=== PATIENT | male | born 1960 | race Caucasian/White ===

== ENCOUNTER 2018-01-02 12:24 | Emergency (ER) | payer SELFPAY ==
[2018-01-02 13:59] VITALS: BP 115/82
--- NOTE | 2018-01-02 14:26 | UC ---
Skin Complaint HPI - HPI Summary HPI Summary: Pt presents with left cheek swelling. Says this started 3 days ago as an infected hair. He has been squeezing it trying to get material out (clear and yellow colored drainage), but has become increasingly large and painful. Denies fever, chills, SOB, or recent illness. - History of Current Complaint Chief Complaint: UCSkin Stated Complaint: LEFT CHECK SWELLING Hx Obtained From: Patient Onset/Duration: Gradual Onset Skin Exposure Onset/Duration: Days Ago Timing: Constant Onset Severity: Moderate Current Severity: Severe Pain Intensity: 8 Pain Scale Used: 0-10 Numeric Location: Face - Allergy/Home Medications Allergies/Adverse Reactions: Allergies Allergy/AdvReac Type Severity Reaction Status Date / Time prochlorperazine Allergy See Comment Verified 01/02/18 13:53 [From Compazine] Home Medications: Home Medications Ibuprofen TAB* [Motrin TAB* 600 MG] 600 mg PO Q6H PRN 01/02/18 [History Confirmed 01/02/18] Review of Systems Constitutional: Negative Skin: Other - Abscess left cheek ENT: Negative Respiratory: Negative Cardiovascular: Negative Gastrointestinal: Negative Musculoskeletal: Negative Neurological: Negative Psychological: Negative All Other Systems Reviewed And Are Negative: Yes PMH/Surg Hx/FS Hx/Imm Hx Previously Healthy: Yes - Surgical History Surgical History: Yes Surgery Procedure, Year, and Place: Umbilical and inguinal hernia repair 2016. Gastric stapling 1996 - Family History Known Family History: Positive: Unknown - Social History Lives: Alone Alcohol Use: None Substance Use Type: None Smoking Status (MU): Never Smoked Tobacco Physical Exam Triage Information Reviewed: Yes Appearance: Well-Appearing, No Pain Distress, Well-Nourished Vital Signs: Initial Vital Signs Temp 98.8 F 01/02/18 13:55 Pulse 70 01/02/18 13:55 Resp 18 01/02/18 13:55 BP 115/82 01/02/18 13:55 Pulse Ox 98 01/02/18 13:55 Vital Signs Reviewed: Yes ENT: Positive: Pharynx normal, Uvula midline. Negative: Pharyngeal erythema, Dental tenderness Dental: Negative: Percussion Tenderness @, Gross Decay/Caries @, Dental Fracture @, Abscess @, Cellulitis @, Cervical Lymphadenopathy, Bleeding Neck: Positive: Supple, Nontender, No Lymphadenopathy Respiratory: Positive: Lungs clear, Normal breath sounds, No respiratory distress, No accessory muscle use Cardiovascular: Positive: RRR, No Murmur, Pulses Normal Neurological: Positive: Alert Psychological: Positive: Age Appropriate Behavior Skin: Positive: Other - 2.5cm in diameter abscess to left lower cheek along mandible. Oozing clear/yellow material on exam. TTP. Course/Dx - Course Course Of Treatment: Left lower cheek abscess. A time out was performed, witnessed, and signed. 3mL of 2% lidocaine without epi was administered and good anesthetization was achieved. An Iodine swab was used to cleanse the area. A 3mm linear incision was made on the central most part of the abscess. Copious purulent material was able to be expressed. Area was dressed with mepilex. Pt tolerated procedure well. - Differential Diagnoses - Skin Complaint Differential Diagnoses: Abscess - Diagnoses Provider Diagnoses: Left lower cheek abscess Procedures - Incision and Drainage Site: Left lower cheek Anesthesia: Local Instrument(s): Scalpel - #11 Discharge - Discharge Plan Condition: Stable Disposition: HOME Prescriptions: Cephalexin CAP* [Keflex CAP*] 500 mg PO BID #14 cap Patient Education Materials: Abscess (ED) Referrals: No Primary Care Phys,NOPCP [Primary Care Provider] - Additional Instructions: If you develop a fever, shortness of breath, chest pain, new or worsening symptoms - please call your PCP or go to the ED. 1) Keep the bandage clean, dry, and intact for the next 24 hours. After that you may remove the bandage and leave the area to the air. 2) Please take the antibiotic as prescribed and follow up if you develop any fever, chills, or worsening symptoms.
[2018-01-02] MEDS ORDERED: Lidocaine 2% PF * 5 ML VIAL INJ ONE (14:36)
== END 2018-01-02 15:06 | disposition home or self-care (01) ==
LOC: UCEAST 12:24
DX: L02.01 Cutaneous abscess of face (principal); Z98.84 Bariatric surgery status; Z88.8 Allergy status to other drugs, medicaments and biological substances
CPT/HCPCS: 10060; 96372; 99202; G0463

== ENCOUNTER 2018-10-30 10:28 | Emergency (ER) | payer SELFPAY ==
[2018-10-30] MEDS ORDERED: NS 0.9% 1000 ML* 1,000 ML IV ONE ×3 (12:14→15:25)
[2018-10-30] MEDS ORDERED: Ondansetron INJ* 2 MG/ML VIAL IV ONE (12:26)
--- NOTE | 2018-10-30 12:28 | ED ---
GI/ HPI - HPI Summary HPI Summary: This pt is a 57 y/o male presenting to [facility] c/o nausea and vomiting x3 days. Pt reports he ate cookies prior to onset of nausea and vomiting. Additionally notes diarrhea and fever that have now resolved. He states today he had 3 to 4 episodes of emesis. He reports intermittent abdominal pain, described as cramping, that has persisted until today. Denies fever, chills, chest pain, SOB. Hx gastric bypass 22 years ago. Denies any other PMHx. - History of Current Complaint Chief Complaint: EDAbdPain Time Seen by Provider: 10/30/18 12:12 Stated Complaint: ABD PAIN/DIZZINESS/VOMITING Hx Obtained From: Patient Onset/Duration: Started Days Ago - 3, Still Present Timing: Lasting Days - 3 Current Severity: Moderate Pain Intensity: 7 Location of Pain: Diffuse Pain Characteristics: Cramping Associated Signs and Symptoms: Positive: Nausea, Vomiting, Diarrhea, Abdominal Pain. Negative: Fever, Chills, Chest Pain Aggravating Factor(s): Nothing Alleviating Factor(s): Nothing - Allergy/Home Medications Allergies/Adverse Reactions: Allergies Allergy/AdvReac Type Severity Reaction Status Date / Time prochlorperazine Allergy See Comment Verified 10/30/18 12:44 [From Compazine] PMH/Surg Hx/FS Hx/Imm Hx Endocrine/Hematology History: Denies: Hx Diabetes Cardiovascular History: Denies: Hx Hypertension - Surgical History Surgery Procedure, Year, and Place: Umbilical and inguinal hernia repair 2016. Gastric stapling 1996 Infectious Disease History: No Infectious Disease History: Denies: Traveled Outside the [place] in Last 30 Days - Family History Family History: father with lung CA - Social History Alcohol Use: None Substance Use Type: Reports: None Smoking Status (MU): Never Smoked Tobacco Review of Systems Negative: Fever, Chills Negative: Chest Pain Negative: Shortness Of Breath Positive: Abdominal Pain, Vomiting, Diarrhea, Nausea Skin: Negative Neurological: Negative All Other Systems Reviewed And Are Negative: Yes Physical Exam - Summary Physical Exam Summary: VITAL SIGNS: Reviewed. GENERAL: Patient is a well-developed and nourished male who is lying comfortable in the stretcher. Patient is not in any acute respiratory distress. HEAD AND FACE: Normocephalic and atraumatic. EYES: PERRLA, EOMI x 2, No injected conjunctiva. EARS: Hearing grossly intact. Ear canals and tympanic membranes are WNL. MOUTH: Oropharynx within normal limits. Oral mucosa is dry. NECK: Supple, trachea is midline, no adenopathy, no JVD. CHEST: Symmetric, no tenderness at palpation LUNGS: Clear to auscultation bilaterally. No wheezing or crackles. CVS: RRR, S1 and S2 present, no murmurs or gallops appreciated. ABDOMEN: Soft, non-tender. Abdomen is distended. Positive bowel sounds. No rebound no guarding, and no masses palpated. No abdominal bruit or pulsations. EXTREMITIES: FROM in all major joints, no edema, no cyanosis or clubbing. NEURO: Alert and oriented x 3. No acute neurological deficits. Speech is normal. SKIN: Dry and warm Triage Information Reviewed: Yes Vital Signs On Initial Exam: Initial Vitals Temp Pulse Resp BP Pulse Ox 98.2 F 109 18 137/92 97 10/30/18 10:39 10/30/18 10:39 10/30/18 10:39 10/30/18 10:39 10/30/18 10:39 Vital Signs Reviewed: Yes Diagnostics - Vital Signs Vital Signs Temp Pulse Resp BP Pulse Ox 10/30/18 12:04 93 120/89 96 10/30/18 12:03 99 96 10/30/18 10:39 98.2 F 109 18 137/92 97 - Laboratory Result Diagrams: 10/30/18 12:35 10/30/18 12:35 Lab Statement: Any lab studies that have been ordered have been reviewed, and results considered in the medical decision making process. - Radiology Abdomen XR Radiology Interpretation Completed By: Radiologist Summary of Radiographic Findings: IMPRESSION: No free air or obstruction is identified. Dr. Escobar has reviewed this report. - EKG 12:18 Cardiac Rate: NL - at 88 bpm EKG Rhythm: Sinus Rhythm Summary of EKG Findings: No ST elevations. Re-Evaluation - Re-Evaluation First Eval Re-Evaluation Time: 15:26 Change: Improved Comment: Pt reports feeling better. He drank about 16 ounces of fluids without any nausea and vomiting. Pt denies any abd pain. He will be discharged home with follow up from PCP. GIGU Course/Dx - Course Assessment/Plan: This pt is a 57 y/o male presenting to [facility] c/o nausea and vomiting x3 days. Pt reports he ate cookies prior to onset of nausea and vomiting. Additionally notes diarrhea and fever that have now resolved. He states today he had 3 to 4 episodes of emesis. He reports intermittent abdominal pain, described as cramping, that has persisted until today. Denies fever, chills, chest pain, SOB. Hx gastric bypass 22 years ago. Denies any other PMHx. Blood work without any significant abnormality except for increase in creatinine of 1.3. Glucose is 107. CRP is 54.09 and CPK is 228. In the ED course the patient was given IV fluids, he was given Zofran for the nausea and vomiting. X-ray of the abdomen impression: no free air or obstruction is identified. Patient received approximately 2 L of IV fluids and the symptoms have subsided. The patient reports that he doesnt have any more nausea or abdominal cramping. The patient was given a by mouth challenge and he was able to drink approximately 16 ounces of fluids. He reports no nausea and vomiting. He reports no diarrhea or abdominal pain. Therefore at this point, I discussed my physical exam and findings, test results with the patient and the need to follow-up with primary care physician. I also instructed the patient that I did not perform a abdominal pelvic CT at this time since all his symptoms have resolved. The patient understands and agrees. He was given instructions to return to the emergency room if he develops any other symptom. Also if he develops any abdominal pain onset of nausea and vomiting. The patient is hemodynamically stable, alert oriented 3. - Diagnoses Provider Diagnoses: Nausea and vomiting, Diarrhea Discharge - Sign-Out/Discharge Documenting (check all that apply): Patient Departure - Discharge home - Discharge Plan Condition: Stable Disposition: HOME Prescriptions: Ondansetron ODT TAB* [Zofran 4 MG Odt TAB*] 4 mg PO Q8H PRN #10 tab.odt PRN Reason: Vomiting Patient Education Materials: Acute Nausea and Vomiting (ED), Acute Diarrhea (ED ) Referrals: [facility] [Outside] [facility] [Outside] Additional Instructions: FOLLOW UP WITH YOUR PRIMARY CARE PROVIDER WITHIN ONE WEEK FOR HIGH BLOOD PRESSURE NOTED TODAY. If you don't have a primary care provider, please follow up with [facility] or establish a primary through [facility] Physician Referral. RETURN TO THE ED FOR ANY NEW OR WORSENING SYMPTOMS. - Billing Disposition and Condition Condition: STABLE Disposition: Home - Attestation Statements Document Initiated by Scribkarina: Yes Documenting Scribe: Katie Henry Provider For Whom Jaz is Documenting (Include Credential): Kolby Escobar MD Scribe Attestation: Katie Medrano, scribed for Kolby Escobar MD on 10/30/18 at 1837. Scribe Documentation Reviewed: Yes Provider Attestation: The documentation as recorded by the Katie to accurately reflects the service I personally performed and the decisions made by Kolby sosa MD Status of Scribe Document: Viewed
[2018-10-30 12:52] LABS: Hematocrit 42 % (42-52); Hemoglobin 13.7 g/dl (14.0-18.0); Mean Corpuscular HGB Conc 33 g/dl (31-36); Mean Corpuscular Hemoglobin 24 pg (27-31); Mean Corpuscular Volume 72 fL (80-94); Mean Platelet Volume 7.4 fL (7.4-10.4); Platelet Count 329 10^3/ul (150-450); Red Blood Count 5.78 10^6/ul (4.00-5.40); Red Cell Distribution Width 17 % (10.5-15); White Blood Count 8.2 10^3/ul (3.5-10.8)
[2018-10-30 13:07] LABS: EGFR Non-African American 56.7 (>60)
[2018-10-30 13:14] LABS: ABS Basophils 0 10^3/ul (0-0.2); ABS Eosinophils 0.1 10^3/ul (0-0.6); ABS Lymphocytes 1.6 10^3/ul (1.0-4.8); ABS Monocytes 0.8 10^3/ul (0-0.8); ABS Neutrophils 5.6 10^3/ul (1.5-7.7)
[2018-10-30 13:16] LABS: Monocytes % 5 %
[2018-10-30 13:17] LABS: ABS Neutrophils 5.6 10^3/ul (1.5-7.7)
[2018-10-30 14:28] LABS: Urine Appearance Turbid; Urine Blood Negative (Negative); Urine Color Yellow; Urine Ketones Trace (Negative); Urine Protein 1+(30 mg/dL) (Negative); Urine Red Blood Cell Absent (Absent); Urine Specific Gravity 1.029 (1.010-1.030); Urine Urobilinogen Negative (Negative); Urine White Blood Cell Trace(0-5/hpf) (Absent)
[2018-10-30 15:38] VITALS: BP 124/79
== END 2018-10-30 15:38 | disposition home or self-care (01) ==
LOC: ED 10:28
DX: R11.2 Nausea with vomiting, unspecified (principal); R19.7 Diarrhea, unspecified
CPT/HCPCS: 36415; 74019; 80053; 81003; 81015; 82150; 82550; 83605; 83690; 83735; 83880; 85025; 85060; 86140; 87086; 93005; 96361; 96374; 99283; J2405

== ENCOUNTER → 2019-01-08 17:53 | Emergency (ER) | payer SELFPAY ==
[~2019-01-08 17:53] MED LIST: Metoclopramide IV* 5 MG/ML 2 ML VIAL IV SLOW PU ONE; NS 0.9% 1000 ML** 1,000 ML IV ONE; Ondansetron INJ* 2 MG/ML VIAL IV ONE
--- NOTE | 2019-01-08 18:11 | ED ---
GI/ HPI - HPI Summary HPI Summary: 52-year-old male presents with vomiting for the past couple days. He states he feels very dehydrated. He states this happened in the past. He denies any bowel pain. No diarrhea. he denies any shortness of breath or chest pain. No fevers. No cough. He states that he just feels weak. He states that he is not able to keep anything down. He has history of gastric bypass. No one else is sick. he has had a normal bowel movement today. no history of obstruction. - History of Current Complaint Chief Complaint: EDNauseaVomitDiarrh Time Seen by Provider: 01/08/19 18:01 Stated Complaint: VOMITING/DIZZINESS/WEAKNESS Pain Intensity: 0 - Allergy/Home Medications Allergies/Adverse Reactions: Allergies Allergy/AdvReac Type Severity Reaction Status Date / Time prochlorperazine Allergy See Comment Verified 01/08/19 17:57 [From Compazine] Home Medications: Home Medications NK [No Home Medications Reported] 01/08/19 [History Confirmed 01/08/19] PMH/Surg Hx/FS Hx/Imm Hx Endocrine/Hematology History: Denies: Hx Diabetes Cardiovascular History: Denies: Hx Hypertension - Surgical History Surgery Procedure, Year, and Place: Umbilical and inguinal hernia repair 2016. Gastric stapling 1996 Infectious Disease History: No Infectious Disease History: Denies: Traveled Outside the [place] in Last 30 Days - Family History Known Family History: Positive: Unknown Family History: father with lung CA - Social History Alcohol Use: None Substance Use Type: Reports: None Smoking Status (MU): Never Smoked Tobacco Review of Systems Negative: Fever Negative: Chest Pain Negative: Shortness Of Breath Positive: Vomiting, Nausea. Negative: Abdominal Pain, Diarrhea All Other Systems Reviewed And Are Negative: Yes Physical Exam Triage Information Reviewed: Yes Vital Signs On Initial Exam: Initial Vitals Temp Pulse Resp BP Pulse Ox 98.6 F 107 18 135/114 97 01/08/19 17:54 01/08/19 17:54 01/08/19 17:54 01/08/19 17:54 01/08/19 17:54 Vital Signs Reviewed: Yes Appearance: Positive: Well-Appearing Skin: Positive: Warm, Dry Head/Face: Positive: Normal Head/Face Inspection Eyes: Positive: Normal, Conjunctiva Clear ENT: Positive: Pharynx normal Respiratory/Lung Sounds: Positive: Clear to Auscultation, Breath Sounds Present Cardiovascular: Positive: Normal, RRR Abdomen Description: Positive: Nontender, Soft Bowel Sounds: Positive: Present Musculoskeletal: Positive: Normal Neurological: Positive: Normal Psychiatric: Positive: Normal Diagnostics - Vital Signs Vital Signs Temp Pulse Resp BP Pulse Ox 01/08/19 17:54 98.6 F 107 18 135/114 97 - Laboratory Result Diagrams: 01/08/19 18:15 01/08/19 18:15 Lab Statement: Any lab studies that have been ordered have been reviewed, and results considered in the medical decision making process. - Radiology abd Radiology Interpretation Completed By: ED Physician Summary of Radiographic Findings: no obstruction - EKG No standard instances Cardiac Rate: NL EKG Rhythm: Sinus Rhythm Summary of EKG Findings: sinus rhythm Re-Evaluation - Re-Evaluation First Eval Re-Evaluation Time: 18:57 Change: Improved Comment: still a little nausous Second Eval Re-Evaluation Time: 20:29 Change: Improved Comment: no longer nausous, will try ice chips Third Eval Re-Evaluation Time: 21:20 Change: Improved Comment: tolerated ice chips, wants to go home GIGU Course/Dx - Course Course Of Treatment: 52-year-old male presents with vomiting for the past couple days. He states he feels very dehydrated. He states this happened in the past. He denies any bowel pain. No diarrhea. he denies any shortness of breath or chest pain. No fevers. No cough. He states that he just feels weak. He states that he is not able to keep anything down. He has history of gastric bypass. No one else is sick. he has had a normal bowel movement today. no history of obstruction. on exam lungs CTA. abd soft nontender. xray abd read by me and dr enriquez as no obstruction. gave zofran and reglan and fluids and feeling better. able to tolerate ice chips. discussed if develops abd pain or vomiting persists to return for CT. patient has zofran at home. patient understand and agrees with plan. - Diagnoses Differential Diagnoses - Male: Bowel Obstruction, Gastroenteritis (Bacterial), Gastroenteritis (Viral) Provider Diagnoses: Vomiting Discharge - Sign-Out/Discharge Documenting (check all that apply): Patient Departure Patient Received Moderate/Deep Sedation with Procedure: No - Discharge Plan Condition: Good Disposition: HOME Patient Education Materials: Acute Nausea and Vomiting (ED) Referrals: No Primary Care Phys,NOPCP [Primary Care Provider] - Additional Instructions: Can take Zofran every 6 hours as needed for nausea Drink small amounts of fluid as tolerated When able to eat follow BRAT diet: Bananas, rice, applesauce, toast Take ibuprofen or Tylenol for pain as needed every 6 hours Follow up with primary within 5 days Return to ED if develop fever that does not respond to Tylenol or ibuprofen, severe abdominal pain, or any new or worsening symptoms - Billing Disposition and Condition Condition: GOOD Disposition: Home
[2019-01-08 18:26] LABS: Hematocrit 46 % (42-52); Hemoglobin 14.8 g/dl (14.0-18.0); Mean Corpuscular HGB Conc 32 g/dl (31-36); Mean Corpuscular Hemoglobin 24 pg (27-31); Mean Corpuscular Volume 74 fL (80-94); Mean Platelet Volume 8.4 fL (7.4-10.4); Platelet Count 308 10^3/ul (150-450); Red Blood Count 6.21 10^6/ul (4.00-5.40); Red Cell Distribution Width 18 % (10.5-15); White Blood Count 7.8 10^3/ul (3.5-10.8)
[2019-01-08 18:42] LABS: Albumin 4.2 g/dL (3.2-5.2); Albumin/Globulin Ratio 1.1 (1-3); BUN/Creatinine Ratio 8.3 (8-20); C Reactive Protein 5.89 mg/L (<8.01); Calcium 10.3 mg/dL (8.6-10.3); EGFR African American 37.9 (>60); EGFR Non-African American 31.3 (>60); Globulin 3.9 g/dL (2-4); Potassium 4.2 mmol/L (3.5-5.0); Total Bilirubin 1.5 mg/dL (0.2-1.0); Total Protein 8.1 g/dL (6.4-8.9)
[2019-01-08 18:46] LABS: ABS Basophils 0.1 10^3/ul (0-0.2); ABS Eosinophils 0.1 10^3/ul (0-0.6); ABS Lymphocytes 1.7 10^3/ul (1.0-4.8); ABS Monocytes 0.8 10^3/ul (0-0.8); ABS Neutrophils 5.2 10^3/ul (1.5-7.7)
[2019-01-08 18:52] LABS: Urine Appearance Cloudy; Urine Bacteria Absent (Absent); Urine Bilirubin 1+ (Negative); Urine Blood Negative (Negative); Urine Color Amber; Urine Glucose 1+(50 mg/dL) (Negative); Urine Ketones Negative (Negative); Urine Nitrite Negative (Negative); Urine Protein 2+(100 mg/dL) (Negative); Urine Red Blood Cell 1+(3-5/hpf) (Absent); Urine Specific Gravity 1.028 (1.010-1.030); Urine Squamous Epithelial Cell Present (Absent); Urine Urobilinogen Positive (Negative); Urine White Blood Cell 2+(11-20/hpf) (Absent)
[2019-01-08 18:54] LABS: Lymphocytes % 20 %; Monocytes % 4 %; Neutrophil % 73 %
[2019-01-08 18:55] LABS: ABS Neutrophils 5.69 10^3/ul (1.5-7.7)
[2019-01-08 18:56] LABS: ABS Eosinophils 0.078 10^3/ul (0-0.6)
[2019-01-08 18:57] LABS: ABS Basophils 0.156 10^3/ul (0-0.2)
[2019-01-08 19:07] LABS: Influenza A Molecular NEGATIVE (Negative); Influenza B Molecular NEGATIVE (Negative)
[2019-01-08 19:19] LABS: Magnesium 2.2 mg/dL (1.9-2.7)
[2019-01-08 21:25] VITALS: BP 113/73
== END | disposition home or self-care (01) ==
LOC: ED 17:53
DX: R11.2 Nausea with vomiting, unspecified (principal); R53.1 Weakness; Z98.84 Bariatric surgery status; Z88.8 Allergy status to other drugs, medicaments and biological substances
CPT/HCPCS: 36415; 74018; 80053; 81003; 81015; 82150; 83605; 83690; 83735; 85025; 85060; 86140; 87086; 93005; 96361; 96374; 96375; 99282; J2405; J2765

== ENCOUNTER 2019-02-03 09:52 | Observation (INO) | payer SELFPAY ==
[2019-02-03] MEDS ORDERED: NS 0.9% 1000 ML** 1,000 ML IV ONE (10:20)
--- NOTE | 2019-02-03 10:21 | ED ---
Abdominal Pain/Male - HPI Summary HPI Summary: Patient is a 58-year-old male who presents emergency department for nausea and vomiting times one month. Patient states he has been unable to keep down any solid food in the last 4 weeks. Patient has a history of gastric bypass 20 years ago. Patient states he has always been on a soft diet for surgery. Patient states over the last month as soon as he eats he immediately vomits. He denies this for nausea. He notes he has no pain other than when he vomits. He notes constipation. Patient states he has lost around 30 pounds this last month. He has been seen in the ER twice for similar symptoms over the last few months. Patient has not recently had any abdominal imaging and x-rays. Patient otherwise denies past medical history. He denies fever, night sweats, chills, chest pain, shortness of breath, urinary symptoms. Symptoms are moderate in severity. No current modifying factors. - History of Current Complaint Chief Complaint: EDAbdPain Stated Complaint: VOMITING DIZZY PER PT Time Seen by Provider: 02/03/19 10:06 Hx Obtained From: Patient Pain Intensity: 6 - Allergies/Home Medications Allergies/Adverse Reactions: Allergies Allergy/AdvReac Type Severity Reaction Status Date / Time metoclopramide [From Reglan] Allergy Hallucinati Verified 02/03/19 10:02 ons prochlorperazine Allergy See Comment Verified 01/08/19 17:57 [From Compazine] PMH/Surg Hx/FS Hx/Imm Hx Previously Healthy: Yes Endocrine/Hematology History: Denies: Hx Diabetes Cardiovascular History: Denies: Hx Hypertension - Surgical History Surgery Procedure, Year, and Place: Umbilical and inguinal hernia repair 2016. Gastric stapling 1996 Infectious Disease History: No Infectious Disease History: Denies: Traveled Outside the [place] in Last 30 Days - Family History Known Family History: Positive: Unknown Family History: father with lung CA - Social History Alcohol Use: None Substance Use Type: Reports: None Smoking Status (MU): Never Smoked Tobacco Review of Systems Constitutional: Negative Negative: Fever, Chills Cardiovascular: Negative Negative: Palpitations, Chest Pain Respiratory: Negative Negative: Shortness Of Breath, Cough Positive: Abdominal Pain, Vomiting, Nausea. Negative: Diarrhea Genitourinary: Negative Negative: dysuria Neurological: Negative All Other Systems Reviewed And Are Negative: Yes Physical Exam Triage Information Reviewed: Yes Vital Signs On Initial Exam: Initial Vitals Temp Pulse Resp BP Pulse Ox 97.4 F 77 16 108/73 97 02/03/19 09:57 02/03/19 09:57 02/03/19 09:57 02/03/19 09:57 02/03/19 09:57 Vital Signs Reviewed: Yes Appearance: Positive: Well-Appearing - Pt. lying in bed in NAD. SO present. Skin: Positive: Warm, Dry Head/Face: Positive: Normal Head/Face Inspection Eyes: Positive: Normal, EOMI Neck: Positive: Supple Respiratory/Lung Sounds: Positive: Clear to Auscultation, Breath Sounds Present Cardiovascular: Positive: Normal, RRR Abdomen Description: Positive: Other: - obese. Abd. is soft with mild epigastric tenderness. Neurological: Positive: Normal, CN Intact II-III Psychiatric: Positive: Affect/Mood Appropriate Diagnostics - Vital Signs Vital Signs Temp Pulse Resp BP Pulse Ox 02/03/19 09:57 97.4 F 77 16 108/73 97 - Laboratory Result Diagrams: 02/03/19 10:32 02/03/19 10:32 Lab Statement: Any lab studies that have been ordered have been reviewed, and results considered in the medical decision making process. Abdominal Pain Male Course/Dx - Course Course Of Treatment: Patient presenting with vomiting after eating 4 weeks and weight loss. He is afebrile stable vital signs. Patient notes he has no abdominal pain except with emesis episodes. We'll check basic labs and obtain CT scan for further evaluation of potential obstruction, mass, surgical complication. CBC shows normal WBC. Chemistry shows slightly low potassium of 2.2, sodium 132, chloride 86, anion gap 14, creatinine 1.7, lipase minimally elevated at 92. 2 20meq K and PO 40meq K ordered. ECG done at 1027 shows a sinus bradycardia of 55 bpm, borderline left axis deviation, ST depression in lateral leads, no STEMI. CT abd.pelvis per radiology:IMPRESSION: #. Suggestion of circumferential mucosal thickening at the level of the gastroesophageal. junction corresponding with the site of the cephalad margin of the gastric stapling which. extends through the diaphragmatic hiatus with the small hiatal hernia likely corresponding. with the patient symptoms. No evidence for enteric perforation. Given severe hypokalemia and pt.'s inability to tolerate PO, hospitalist was consulted for admission for further care and evaluation. Suspect pt. will need a GI consult. I spoke with Dr. Kidd, hospitalist, who accepts pt. for admission. Results and plan discussed with pt. He has remained stable in ED. - Diagnoses Differential Diagnosis/HQI/PQRI: Abdominal Aortic Aneurysm, ACS, Bowel Obstruction, Constipation, Hepatitis, Pancreatitis, Peptic Ulcer Disease Provider Diagnoses: Hypokalemia, Emesis - Critical Care Time Critical Care Time: 30-74 min - 30 minutes including direct pt. care and consultation. Discharge - Sign-Out/Discharge Documenting (check all that apply): Patient Departure Patient Received Moderate/Deep Sedation with Procedure: No - Discharge Plan Condition: Stable Disposition: ADMITTED TO [facility] - Billing Disposition and Condition Condition: STABLE Disposition: Admitted to [facility]
[2019-02-03 10:43] LABS: ABS Basophils 0 10^3/ul (0-0.2); ABS Eosinophils 0.1 10^3/ul (0-0.6); ABS Lymphocytes 1.1 10^3/ul (1.0-4.8); ABS Monocytes 0.5 10^3/ul (0-0.8); ABS Neutrophils 3.3 10^3/ul (1.5-7.7); ABS Nucleated RBC 0 10^3/ul; Eosinophil % 1.7 %; Hematocrit 42 % (42-52); Lymphocyte % 21.8 %; Mean Corpuscular HGB Conc 33 g/dl (31-36); Mean Corpuscular Hemoglobin 25 pg (27-31); Mean Corpuscular Volume 75 fL (80-94); Nucleated Red Blood Cells % 0; Platelet Count 266 10^3/ul (150-450); Red Blood Count 5.59 10^6/ul (4.00-5.40); Red Cell Distribution Width 18 % (10.5-15)
[2019-02-03 11:03] LABS: ALT 22 U/L (7-52); AST 26 U/L (13-39); Albumin 3.5 g/dL (3.2-5.2); Alkaline Phosphatase 77 U/L (34-104); BUN/Creatinine Ratio 12.4 (8-20); Blood Urea Nitrogen 21 mg/dL (6-24); C Reactive Protein 21.82 mg/L (<8.01); CO2 Carbon Dioxide 32 mmol/L (22-32); Calcium 9.1 mg/dL (8.6-10.3); Chloride 86 mmol/L (101-111); EGFR African American 50.2 (>60); EGFR Non-African American 41.5 (>60); Globulin 3.5 g/dL (2-4); Glucose 111 mg/dL (70-100); Sodium 132 mmol/L (135-145)
[2019-02-03 11:15] LABS: Anion Gap 14 mmol/L (2-11); Potassium 2.2 mmol/L (3.5-5.0)
[2019-02-03] MEDS ORDERED: Potassium Chlor TAB* 20 MEQ TAB.ER PO ONE ×2 (11:16→20:44)
[2019-02-03] MEDS ORDERED: Iodixanol* (CONTRAST) 320 MG/ML 100 ML SDV IV ONE (11:34)
[2019-02-03 11:53] LABS: Magnesium 2.1 mg/dL (1.9-2.7)
[2019-02-03 11:55] LABS: Troponin I 0.02 ng/mL (<0.04)
[2019-02-03] MEDS: KCL 20 MEQ/100 ML IVPREMIX* 20 MEQ/100 ML BAG IV SCH ×4 (12:15→23:41)
[2019-02-03] MEDS ORDERED: Ondansetron INJ* 2 MG/ML VIAL IV PRN (14:26)
[2019-02-03] MEDS ORDERED: Acetaminophen TAB* 325 MG PO PRN (14:26)
[2019-02-03 15:36] LABS: Folate 6.77 ng/mL (>3.99)
[2019-02-03] MEDS: Lactated Ringers 1000 ML Bag* 1,000 ML IV SCH (16:42)
[2019-02-03 17:02] LABS: % Iron Saturation 18 % (15-55); Iron 65 ug/dL (50-212); Total Iron Binding Capacity 360 mcg/dL (250-450); Transferrin 257 mg/dL (203-362)
--- NOTE | 2019-02-03 17:06 | HP ---
CC: Dr. Michael Conley * ADMISSION HISTORY AND PHYSICAL: DATE OF ADMISSION: 02/03/19 PRIMARY CARE PROVIDER: The patient has no primary care provider. MY ATTENDING WHILE IN THE HOSPITAL: Dr. Leodan Kidd.* (DICTATED BY JOSE A CHEN) CHIEF COMPLAINT: Nausea and vomiting x3 weeks. HISTORY OF PRESENT ILLNESS: Mr. Beck is a 58-year-old male with past medical history significant for gastric bypass 20 years ago as well as a hiatal and inguinal hernia repair in April 2018 who approximately 3 weeks ago had a sudden onset of inability to tolerate solids. The patient denies a feeling of food getting stuck in his throat. He just states that whenever he eats solids, he vomits them immediately back up. The patient has low level nausea at all times , which is able to go away with Zofran, but when he takes Zofran, he is still not able to tolerate solid food. The patient denies any coughing with the swallowing. The patient has never had any blood in his vomit. The patient has no dark stools and no blood in his stools. The patient still has somewhat regular normal bowel movements. The patient denies any fevers or chills. The patient has lost 30 pounds of weight in the last 3 months. The patient recently moved back from [place] in August 2018 and has not had any medical care since then. The patient has not been camping recently. The patient has no recent foreign travel. The patient has no abdominal pain. The patient today came to the emergency department due to feeling lightheaded and like he is going to pass out upon standing. The patient denies chest pain, shortness of breath, dyspnea on exertion. The patient denies any use of NSAIDs. The patient takes no routine medications. The patient denies any symptoms of water brash, reflux, or any abdominal pain. The patient has a sister who is currently suffering from gastric cancer. In the emergency department, the patient was found to have an elevated creatinine, decreased potassium and sodium at 2.2 and 132 as well as microcytosis with a normal hemoglobin and we were asked to evaluate the patient for admission to hospital. PAST MEDICAL HISTORY: Gastric bypass, hiatal hernia, inguinal hernia, Guillain [place] PAST SURGICAL HISTORY: Gastric bypass 20 years ago, hiatal and inguinal hernia repair in April 2018. MEDICATIONS: None. ALLERGIES: COMPAZINE and REGLAN. FAMILY HISTORY: The patient's mother is alive and has no past medical history. The patient's father of lung cancer, had been a heavy smoker. The patient' s sister is alive and has gastric cancer. SOCIAL HISTORY: The patient never smoked, never drank. No use of drugs. The patient worked at [employer] in [place] and currently works at [employer] in [place]. The patient has never , never had any kids. The patient's surrogate decision maker will be his mother, Rosa Franco. REVIEW OF SYSTEMS: A 14-point review of systems was reviewed and is negative except as above in the HPI. PHYSICAL EXAMINATION GENERAL: The patient is a 58-year-old male who appears stated age and sitting comfortably in bed, in no acute distress. VITAL SIGNS: At the time of evaluation, temperature 97.4, pulse rate 63, respiratory rate 20, oxygen saturation 100% on room air, and blood pressure 102/ 83. HEENT: Head: Normocephalic, atraumatic. Sclerae anicteric. No conjunctival injection. Nasal mucosa moist. Oral mucosa moist. No pharyngeal erythema, discharge, or exudate. NECK: Supple, nontender. No lymphadenopathy. No carotid bruit auscultated. No JVD. RESPIRATORY: Clear to auscultation bilaterally. No wheezes, rales, or rhonchi. Good air exchange bilaterally. CARDIAC: Regular rate and rhythm. No clicks, murmurs, gallops, or rubs. Pulses 2+ in the bilateral dorsalis pedis, posterior tibialis, and radial areas. ABDOMEN: Soft, nontender, nondistended. Bowel sounds present and normoactive in all 4 quadrants. No hepatosplenomegaly. No abdominal bruits auscultated. No hepatojugular reflux. GENITOURINARY: No suprapubic or CVA tenderness. NEURO: Cranial nerves II through XII intact. No focal deficits. Alert and oriented x3. PSYCHIATRIC: Pleasant and cooperative. SKIN: Clean, dry, and intact. No rash. DIAGNOSTIC STUDIES/LAB DATA: White blood cell count 5.0, hemoglobin 14.0, MCV is 75, MCH 25, RDW 18, platelet count 266. Sodium 132, potassium 2.2, chloride 86, carbon dioxide 32, anion gap 14, BUN 21, creatinine 0.7, glucose 111, calcium 9.1, magnesium 2.1. Bilirubin 1.5, AST 26, ALT 22, alkaline phosphatase 77. Troponin I 0.02. CRP 21.82. Protein 7.0, albumin 3.5, globulin 3.0, lipase 92. Studies: EKG shows normal sinus rhythm, borderline ST depression in the lateral leads, poor quality study, no hypertrophy enlargement, left axis deviation, QTc of 448, rate of 52. No UA is present. No other significant abnormalities. No significant change from previous exam. Abdomen and pelvis CT read as suggestion of circumferential mucosal thickening at the level of the gastroesophageal junction, corresponding with the site of cephalad margin of the gastric stapling, which extends through the diaphragmatic hiatus with the small hiatal hernia likely corresponding with the patient's symptoms. No evidence of enteric perforation, postsurgical change of previous ventral hernia repair and probable left inguinal hernia repair, hepatic steatosis, no biliary dilatation, atrophic pancreas. ASSESSMENT AND PLAN: Impression: Mr. Beck is a 58-year-old male with past medical history significant for gastric bypass and hiatal and inguinal hernia repair, who presents to the emergency department with 3 weeks of nausea and vomiting with significant weight loss and intolerance for solids. The patient was found to be profoundly hypokalemic with acute kidney injury and other signs of dehydration. The patient will be admitted to the hospital for fluid resuscitation and GI consultation. 1. Nausea, vomiting, dehydration, and weight loss. The patient's symptoms are of unclear etiology. The patient has no significant abdominal pain. The patient has no subjective evidence of gastroesophageal reflux disease. The patient has light vomiting of undigested food. The patient has nausea, which is responsive to Zofran. The most likely cause of the patient's symptoms given his recent surgery would be a complication of the hiatal hernia repair; however , we will attempt to get records from his previous hospital. The patient will be seen by Gastroenterology with consideration for EGD and evaluation for possible dilatation if indicated. The patient will have fluids. The patient has acute kidney injury, likely prerenal. Potassium likely corresponding to decreased oral intake and vomiting as well as slight hyponatremia and acute kidney injury. These may all be corrected with potassium supplementation, fluids. The patient will be on a clear liquid diet. The patient has no blood in his stool or vomit. We will check an H. pylori stool antigen. The patient takes no NSAIDs. 2. History of gastric bypass. The patient has a microcytic anemia. The patient had an elevated red blood cell count with normal hematocrit. The patient is likely hemoconcentrated and anemic likely from iron deficiency possibly from malabsorption from his gastric bypass or from chronic blood loss related to a GI tumor. We will check a stool occult blood, H. pylori stool antigen as above and the patient will be followed by Gastroenterology for upper endoscopy and possible lower endoscopy as indicated. 3. Acute kidney injury. Management of fluids as above. 4. FEN. The patient will have a clear liquid diet and fluids as above. 5. DVT prophylaxis. The patient will have SCDs. The patient is low risk. 6. Disposition. The patient will be admitted to observation to the floor. TIME SPENT: Approximately 60 minutes spent on the admission of this patient, 30 of which were spent [id number] with the patient obtaining history and physical and discussing treatment plan. The plan was discussed with my attending, Dr. Leodan Kidd, and he is in agreement. JOSE A CHEN [id number]/[facility] #: [id number] GABINO
[2019-02-03 19:03] LABS: BUN/Creatinine Ratio 13.1 (8-20); Calcium 8.5 mg/dL (8.6-10.3); EGFR African American 68.4 (>60); EGFR Non-African American 56.5 (>60)
[2019-02-03 19:04] LABS: Potassium 2.6 mmol/L (3.5-5.0)
[2019-02-03] MEDS ORDERED: Potassium Chloride LIQUID* 20 MEQ PACKET ONE (20:18)
[2019-02-03] MEDS: Potassium Chloride LIQUID* 20 MEQ PACKET PO ONE ×2 (20:25→20:45)
--- NOTE | 2019-02-03 20:55 | CONS ---
GASTROENTEROLOGY CONSULT: DATE OF CONSULT: 02/03/19 CONSULTING PHYSICIAN: Dr. Leodan Kidd. REASON FOR CONSULT: Repeated nausea and vomiting, presenting dehydrated with potassium of 2.2 status post vertical banded gastroplasty more than 20 years ago. HISTORY: This 58-year-old man who had gastroplasty for morbid obesity in the and according to 2004 reports lost approximately 300 pounds 20 or 25 years ago, had lived in [place] since 2004 until a few months back. He says had been stable from a nutritional point of view there. Over the last 3-4 weeks he has had repetitive N+V after solids only "I can't keep anything down". He actually has had ER visits for the same complaint on Oct 30 and Jan 08. In the early years after his gastroplasty, he had repeated admissions here for nausea and vomiting. Finally, Dr. Collins did upper endoscopy in 2003 and dilated his gastroplasty from 12 to 15 mm. The 12 mm inflation did not create a tear, but a 15 mm balloon did. He was instructed then to eat carefully. He says quite honestly, he does not remember any of those events other than the fact that he was scoped and shown pictures later. He then moved to [place] and has been there all of the ensuing years. He said he did not have any stomach trouble there or any scoping. He regained from about 160 to 210 slowly over that time. He did have a screening colonoscopy while in [place]. He also had repair of what sounds like an incisional hernia in the upper abdomen and a left inguinal hernia summer 2016. He denies any heartburn or acid indigestion stating he takes Tums twice a year. He denies taking any aspirin, Advil, Aleve or the like and is familiar with them. PAST MEDICAL HISTORY: 1. Morbid obesity. 2. Gastroplasty (vertical banded?) - possibly 1996. 3. 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 History of surgical repair, left inguinal hernia and possibly incisional hernia 5. History of nutritional anemias - most active before 2003. MEDICATIONS: Currently none. SOCIAL HISTORY: He has moved back to [place] as he was born and raised in this area. His mother is alive and well in the area. Sister is a longstanding employee of the radiology department here and is currently suffering from gastric cancer per the patient. In [place], he worked for [employer] and works now for the [employer] in [place]. He has been an amateur baseball umpire for 15 years. He is a nonsmoker lifetime. He does not drink. REVIEW OF SYSTEMS: No history of DC, arrhythmia, syncope, palpitations, TB, hemoptysis, hepatitis, jaundice, rectal bleeding. Stools every other day. PHYSICAL EXAM: He is a somewhat sallow complected man with somewhat sunken temples, in no distress. He is eating a clear liquid dinner without difficulty. HEENT exam is otherwise unremarkable. He has no adenopathy. Breath sounds are intact and symmetric. He has no adenopathy or bruits. Lungs are clear and heart sounds are regular. The abdomen is obese, with well-healed scars. He has no overt hernia. Bowel sounds are normal. Rectal deferred. Extremities show no edema. Neurologic shows normal orientation and speech, cranial nerves, movement of all 4 extremities and gait. Cerebellar and sensory function were not tested. LABORATORY DATA: Hemoglobin 14.0, MCV 75. Sodium 132, potassium 2.2. BUN 21, creatinine 0.7. LFTs normal. IMAGING: CT review - thickening in the area of the EG junction and upper stomach. IMPRESSION: Nausea and vomiting with solid food in a man with a poor sense of insight and motivation to seeking medical care. Once his potassium is restored , upper endoscopy is likely indicated, expecting most likely to find a similar situation to what was dilated 15 years ago. Counseling about careful eating is probably going to be as important as the endoscopy. Given his sister's history of gastric cancer, hopefully all of his stomach can be seen. 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 [id number]/[facility] #: [id number] MTDD
[2019-02-04] MEDS: KCL 20 MEQ/100 ML IVPREMIX* 20 MEQ/100 ML BAG IV SCH (01:48)
[2019-02-04] MEDS: Lactated Ringers 1000 ML Bag* 1,000 ML IV SCH ×3 (03:33→15:46)
[2019-02-04 07:37] LABS: ABS Basophils 0 10^3/ul (0-0.2); ABS Eosinophils 0.1 10^3/ul (0-0.6); ABS Lymphocytes 1.1 10^3/ul (1.0-4.8); ABS Monocytes 0.3 10^3/ul (0-0.8); ABS Neutrophils 1.2 10^3/ul (1.5-7.7); ABS Nucleated RBC 0 10^3/ul; Eosinophil % 3.5 %; Hematocrit 36 % (42-52); Hemoglobin 11.9 g/dl (14.0-18.0); Lymphocyte % 40.1 %; Mean Corpuscular HGB Conc 33 g/dl (31-36); Mean Corpuscular Hemoglobin 25 pg (27-31); Mean Corpuscular Volume 76 fL (80-94); Mean Platelet Volume 8.1 fL (7.4-10.4); Nucleated Red Blood Cells % 0.1; Platelet Count 199 10^3/ul (150-450); Red Blood Count 4.79 10^6/ul (4.00-5.40); Red Cell Distribution Width 19 % (10.5-15); White Blood Count 2.7 10^3/ul (3.5-10.8)
[2019-02-04 07:43] LABS: INR 1.18 (0.77-1.02)
[2019-02-04 07:56] LABS: BUN/Creatinine Ratio 11.1 (8-20); Calcium 8.2 mg/dL (8.6-10.3); EGFR African American 93.6 (>60); EGFR Non-African American 77.4 (>60); Potassium 3.1 mmol/L (3.5-5.0)
[2019-02-04] MEDS ORDERED: Potassium Chlor TAB* 20 MEQ TAB.ER PO ONE ×3 (08:17→12:18)
--- NOTE | 2019-02-04 10:40 | PN ---
Subjective Date of Service: 02/04/19 Interval History: Patient is comfortable at time of visit. He experienced nausea earlier this morning, which was relieved with zofran. Had one BM - not dark, no bright red blood, no overly foul smell. Stool was not collected for testing because patient was unaware at the time. Denies emesis, abdominal pain, dyspepsia chest pain, and SOB. Objective Active Medications: Acetaminophen (Tylenol Tab*) 650 mg PO Q6H PRN PRN Reason: FEVER/PAIN Lactated Ringer's (Lactated Ringers 1000 Ml Bag*) 1,000 mls @ 125 mls/hr IV PER RATE BERT Last Admin: 02/04/19 03:33 Dose: 125 mls/hr Ondansetron HCl (Zofran Inj*) 4 mg IV Q6H PRN PRN Reason: NAUSEA Last Admin: 02/04/19 07:17 Dose: 4 mg Vital Signs - 8 hr 02/04/19 02/04/19 02/04/19 04:27 07:08 07:20 Temperature 97.5 F Pulse Rate 59 68 Respiratory 16 16 16 Rate Blood Pressure 103/71 (mmHg) O2 Sat by Pulse 96 Oximetry 02/04/19 08:00 Temperature 97.1 F Pulse Rate 53 Respiratory 18 Rate Blood Pressure 103/65 (mmHg) O2 Sat by Pulse 99 Oximetry Oxygen Devices in Use Now: None Appearance: laying comfortably in bed appearing in NAD Eyes: No Scleral Icterus, PERRLA Ears/Nose/Mouth/Throat: Mucous Membranes Moist Neck: NL Appearance and Movements; NL JVP, Trachea Midline Respiratory: Symmetrical Chest Expansion and Respiratory Effort, Clear to Auscultation Cardiovascular: NL Sounds; No Murmurs; No JVD, RRR, No Edema Abdominal: - - normoactive BS x 4 quadrants; abdomen soft and nondistended; no tenderness to palp Extremities: No Edema, No Clubbing, Cyanosis Skin: No Rash or Ulcers Neurological: Alert and Oriented x 3, NL Muscle Strength and Tone Result Diagrams: 02/04/19 07:02 02/04/19 07:02 Assess/Plan/Problems-Billing Assessment: 58 yo male with significant PMHx of gastric bypass x20yrs and hiatal hernia presents to ED with significant recent weight loss, nausea, and 3 weeks of progressive intolerance to solids with vomiting. - Patient Problems (1) Difficulty swallowing solids Current Visit: Yes Status: Acute Code(s): R13.10 - DYSPHAGIA, UNSPECIFIED SNOMED Code(s): 321323480 Comment: -associated with nausea and vomiting -no vomiting since admission. Nausea improved with zofran -awaiting stool studies (H. pylori and occult blood) -EGD today, GI following and will follow recommendations (2) RONEL (acute kidney injury) Current Visit: Yes Status: Acute Code(s): N17.9 - ACUTE KIDNEY FAILURE, UNSPECIFIED SNOMED Code(s): 73524297 Comment: -likely due to hypovolemia secondary to emesis -Cr 1.7->1.3->0.99 today -1L LR given, continue to monitor (3) Hypokalemia Current Visit: Yes Status: Acute Code(s): E87.6 - HYPOKALEMIA SNOMED Code( s): 51236448 Comment: -likely related to emesis -K 2.2->2.6->3.1 today -patient currently NPO due to EGD scheduled today, but will replace with 40 mEq KCl po after procedure and repeat BMP (4) History of gastric bypass Current Visit: Yes Status: Acute Code(s): Z98.84 - BARIATRIC SURGERY STATUS SNOMED Code(s): 406214230 Comment: -surgery 20 years ago (5) DVT prophylaxis Current Visit: Yes Status: Acute Code(s): ZQH6308 - SNOMED Code(s): 291192932 Comment: -SCDs -patient is low risk (6) Full code status Current Visit: Yes Status: Acute Code(s): Z78.9 - OTHER SPECIFIED HEALTH STATUS SNOMED Code(s): 292010438
[2019-02-04] MEDS ORDERED: fentaNYL* 50 MCG/ML 2 ML VIAL (100 MCG VIAL) ONE (11:04)
[2019-02-04] MEDS ORDERED: Midazolam* 1 MG/ML 10 ML VIAL (10 MG) ONE (11:04)
[2019-02-04] MEDS: Pantoprazole TAB * 40 MG TAB PO SCH ×2 (13:09→20:02)
[2019-02-04 15:20] LABS: BUN/Creatinine Ratio 9.8 (8-20); Calcium 8.5 mg/dL (8.6-10.3); EGFR African American 90.5 (>60); EGFR Non-African American 74.8 (>60)
[2019-02-04 16:05] LABS: Urine Appearance Clear; Urine Bilirubin Negative (Negative); Urine Blood Negative (Negative); Urine Color Yellow; Urine Glucose Negative (Negative); Urine Ketones Negative (Negative); Urine Nitrite Negative (Negative); Urine Protein Negative (Negative); Urine Specific Gravity 1.031 (1.010-1.030); Urine Urobilinogen Negative (Negative)
--- NOTE | 2019-02-04 22:05 | PRO ---
CC: Dr. Kidd * DATE OF PROCEDURE: 02/04/19 - ROOM #414 PROCEDURE: EGD. INDICATION: Nausea, vomiting. REFERRING PHYSICIAN: Dr. Kidd. MEDICATIONS GIVEN: 75 mcg IV fentanyl, 7 mg IV Versed. DESCRIPTION OF PROCEDURE: After the EGD procedure including the risks, benefits , and alternatives not limited to perforation, surgery, and/or were explained to the patient, written consent was then obtained. IV medication was given and a bite block was placed between the teeth. An Olympus gastroscope was then inserted into the patient's mouth, advanced down the esophagus, into the stomach, into the distal duodenum. In the esophagus at the GE junction, the Z-line was intact; however, he does have grade C/D erosive esophagitis. The scope was advanced through the GE junction into the body of the stomach. Retroflex view was unremarkable. I did perform an H. pylori biopsy. He does have surgical changes consistent with a vertical band gastroplasty. The scope was advanced into the duodenal bulb. The scope was then withdrawn from the patient. He tolerated the procedure well and was returned to the recovery room in stable condition. IMPRESSION: 1. Complete upper endoscopy into the duodenum with biopsies. 2. Grade C/D erosive esophagitis. 3. He needs the b.i.d. PPI and he will need a repeat scope in 2 to 3 months from now. [id number]/[facility] #: [id number] MTDD
[2019-02-05] MEDS: Lactated Ringers 1000 ML Bag* 1,000 ML IV SCH ×2 (01:55→09:13)
[2019-02-05] MEDS ORDERED: Potassium Chlor TAB* 20 MEQ TAB.ER PO ONE (07:27)
[2019-02-05 08:01] LABS: BUN/Creatinine Ratio 10.8 (8-20); EGFR African American 114.7 (>60); EGFR Non-African American 94.8 (>60); Potassium 3.3 mmol/L (3.5-5.0)
[2019-02-05 08:04] LABS: ABS Basophils 0 10^3/ul (0-0.2); ABS Eosinophils 0.1 10^3/ul (0-0.6); ABS Lymphocytes 1.1 10^3/ul (1.0-4.8); ABS Monocytes 0.3 10^3/ul (0-0.8); ABS Neutrophils 1.7 10^3/ul (1.5-7.7); ABS Nucleated RBC 0 10^3/ul; Eosinophil % 2.9 %; Hematocrit 36 % (42-52); Hemoglobin 11.7 g/dl (14.0-18.0); Lymphocyte % 34.3 %; Mean Corpuscular HGB Conc 32 g/dl (31-36); Mean Corpuscular Hemoglobin 25 pg (27-31); Mean Corpuscular Volume 77 fL (80-94); Mean Platelet Volume 7.9 fL (7.4-10.4); Nucleated Red Blood Cells % 0.1; Platelet Count 202 10^3/ul (150-450); Red Blood Count 4.72 10^6/ul (4.00-5.40); Red Cell Distribution Width 19 % (10.5-15); White Blood Count 3.3 10^3/ul (3.5-10.8)
[2019-02-05] MEDS: Pantoprazole TAB * 40 MG TAB PO SCH (08:15)
[2019-02-05 12:19] VITALS: BP 107/75
--- NOTE | 2019-02-05 14:22 | DS ---
AMENDED REPORT NOW INCLUDES DESIGNATED COSIGNER CC: Dr. Conley, Dr. Rendon * DISCHARGE SUMMARY: DATE OF ADMISSION: 02/03/19 DATE OF DISCHARGE: 02/05/19 PROVIDER: JOSE A Mcgowan. ATTENDING PHYSICIAN: Dr. Fisher * (dictated by JOSE A Mcgowan). PRIMARY CARE PHYSICIAN: None. PRIMARY DIAGNOSIS: Erosive esophagitis. SECONDARY DIAGNOSES: 1. History of gastric bypass. 2. Hiatal hernia. 3. Inguinal hernia. 4. Guillain-[place] syndrome. CONSULTANTS: Dr. Conley of Gastroenterology. PROCEDURES WHILE IN THE HOSPITAL: 02/04/19 - EGD performed with H. pylori biopsy. Impression: "Grade C/D erosive esophagitis." STUDIES WHILE IN THE HOSPITAL: 1. 02/03/19 - CT abdomen and pelvis Impression: "Suggestion of circumferential mucosal thickening at the level of the gastroesophageal junction corresponding to the site of the cephalad margin of the gastric stapling, which extends through the diaphragmatic hiatus with a small hiatal hernia likely corresponding with the patient's symptoms. No evidence for enteric perforation." 2. 02/03/19 - chest x-ray. Impression: "Patchy left basilar consolidation." DISCHARGE MEDICATIONS: Protonix 40 mg b.i.d. daily. Continued home medications: None. HISTORY OF PRESENT ILLNESS/HOSPITAL COURSE: David Beck is a 58-year-old male with a past medical history of bariatric surgery who presents to the emergency room with 3 weeks of dysphagia to solids, nausea, and vomiting. During his stay he was seen by Gastroenterology. He had an EGD and was found to have erosive esophagitis. At the time of EGD, CLOtesting was performed, which was later found to be negative. The patient was started on 40 mg b.i.d. of Protonix. After endoscopy, the patient was started on GI easy diet and was tolerated well. The patient no longer had nausea or vomiting. Additionally, on admission, the patient had a chest x-ray with mild consolidation. The patient had a cough on admission. During his stay, his cough improved. He did not have any fever during his stay. This patient is at risk for aspiration pneumonia due to his vomiting, but during his hospital stay, treatment did not seem warranted as there was no clinical indication. The patient was hypokalemic on admission and his hypokalemia improved with repletion during his stay. Today, the patient denies nausea, vomiting, dyspepsia, bowel movement, and abdominal pain. The patient also denied chest pain or shortness of breath. A 12 system review of systems was completed and pertinent positives and negatives are discussed above. PHYSICAL EXAMINATION: Head: Normocephalic, atraumatic. Eyes: Sclerae anicteric, PERRL. ENT: Mucous membranes moist. Neck: Supple. Cardio: Regular rate and rhythm without murmurs, rubs, or gallops. Respiratory: Clear to auscultation throughout. Abdomen: Normal bowel sounds x4 quadrants, abdomen is soft, no distention, no tenderness to palpation. Extremities: No edema, cyanosis, or clubbing. Neuro: Alert and oriented x3, no tremors, all 4 extremities with equal movement and strength. DISCHARGE PLAN: The patient is to increase his diet as tolerated. Activity: As tolerated. The patient is currently without a PCP as he is newly returned to the area from [place]. The patient currently is without health insurance, because he started a new job and does not yet qualify for the insurance plan. The patient is in the process of acquiring Medicaid. The patient will follow up with [facility] within a week with Dr. Rendon. He has an appointment set up for 02/08/19. It is suggested that the patient follow up with a BMP at this [facility] visit to recheck his potassium because of his hypokalemia during his stay. Additionally, Gastroenterology would like to see the patient in 3 to 4 weeks and repeat EGD in 3 to 4 months. The patient understands that he is to return to the emergency department if he experiences dysphagia to solids or liquids, vomiting, hematemesis, melena, or hematochezia. CONDITION ON DISCHARGE: Stable. TIME SPENT: Approximately 55 minutes was spent on discharge, approximately half was spent at bedside. JOSE A MCGOWAN [id number]/[facility] #: [id number] GABINO
== END 2019-02-05 12:35 | disposition home or self-care (01) ==
LOC: ED 09:52 → MED 14:26
PROVIDERS: ADMIT Internal Medicine; ATTEND Internal Medicine
DX: K22.10 Ulcer of esophagus without bleeding (principal); Z98.84 Bariatric surgery status; K44.9 Diaphragmatic hernia without obstruction or gangrene; K40.90 Unilateral inguinal hernia, without obstruction or gangrene, not specified as recurrent; G61.0 Guillain-Barre syndrome; R11.2 Nausea with vomiting, unspecified; E87.6 Hypokalemia; R13.10 Dysphagia, unspecified; N17.9 Acute kidney failure, unspecified; E66.01 Morbid (severe) obesity due to excess calories
CPT/HCPCS: 36415; 71046; 74177; 80048; 80053; 81003; 82607; 82728; 82746; 83540; 83550; 83690; 83735; 84484; 85025; 85610; 86140; 87077; 93005; 96361; 96365; 96366; 96375; 99156; 99157; 99285; A9270-GY; G0378; J2250; J2405; J3010; J3480; Q9967

== ENCOUNTER 2019-06-21 19:57 | Emergency (ER) | payer SELFPAY ==
[2019-06-21] MEDS ORDERED: NS 0.9% 1000 ML** 1,000 ML IV ONE (21:53)
[2019-06-21] MEDS ORDERED: Ketorolac INJ* 30 MG/ML 1 ML VIAL IV ONE (21:53)
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
[2019-06-21] MEDS ORDERED: Ondansetron INJ* 2 MG/ML VIAL IV ONE (22:00)
[2019-06-22 00:02] VITALS: BP 112/76
== END 2019-06-22 00:02 | disposition home or self-care (01) ==
LOC: ED 19:57
DX: S09.90XA Unspecified injury of head, initial encounter (principal); W21.03XA Struck by baseball, initial encounter; Y93.64 Activity, baseball; Y92.320 Baseball field as the place of occurrence of the external cause; R10.32 Left lower quadrant pain; K44.9 Diaphragmatic hernia without obstruction or gangrene; G61.0 Guillain-Barre syndrome; Z98.84 Bariatric surgery status; Z88.8 Allergy status to other drugs, medicaments and biological substances
CPT/HCPCS: 70450; 74176; 96361; 96374; 96375; 99283; J1885; J2405

== ENCOUNTER 2019-06-26 21:08 | Emergency (ER) | payer SELFPAY ==
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
[2019-06-27] MEDS ORDERED: Ketorolac INJ* 30 MG/ML 1 ML VIAL IM ONE (00:34)
[2019-06-27] MEDS ORDERED: Meclizine TAB* 12.5 MG PO ONE (00:38)
[2019-06-27 02:14] LABS: Albumin 3.5 g/dL (3.2-5.2); Albumin/Globulin Ratio 1.1 (1-3); BUN/Creatinine Ratio 8.1 (8-20); Calcium 9.4 mg/dL (8.6-10.3); EGFR African American 58.9 (>60); EGFR Non-African American 48.6 (>60); Globulin 3.1 g/dL (2-4); Potassium 2.9 mmol/L (3.5-5.0); Total Bilirubin 0.5 mg/dL (0.2-1.0); Total Protein 6.6 g/dL (6.4-8.9)
[2019-06-27] MEDS ORDERED: Potassium Chlor TAB* 20 MEQ TAB.ER PO ONE ×2 (02:21→02:27)
[2019-06-27] MEDS ORDERED: Magnesium CITRATE* 300 ML BTL PO ONE (03:14)
[2019-06-27] MEDS ORDERED: Bisacodyl SUPP* 10 MG SUPP PR ONE (03:15)
[2019-06-27 03:33] VITALS: BP 106/76
== END 2019-06-27 03:38 | disposition home or self-care (01) ==
LOC: ED 21:08
DX: E87.6 Hypokalemia (principal); R42 Dizziness and giddiness; R11.0 Nausea; K59.00 Constipation, unspecified; Z88.8 Allergy status to other drugs, medicaments and biological substances; Z98.84 Bariatric surgery status
CPT/HCPCS: 36415; 70450; 80053; 96372; 99283; A9270-GY; J1885

== ENCOUNTER 2019-07-03 08:47 | Emergency (ER) | payer SELFPAY ==
[2019-07-03 09:12] VITALS: BP 112/64
[2019-07-03] MEDS ORDERED: Ibuprofen TAB* 600 MG PO ONE (09:30)
--- NOTE | 2019-07-03 10:59 | UC ---
Respiratory Complaint HPI - HPI Summary HPI Summary: WOKE UP THIS MORNING WITH FEVER, BODY ACHES AND HEADACHE. FEELS OVERALL UNWELL AND HAS A MILD COUGH. STATES HE WAS OUT IN THE RAIN YESTERDAY HELPING HIS AUNT PACK UP HER HOUSE. STATES HE HAS A HISTORY OF PNEUMONIA AND IS CONCERNED ABOUT THIS. IS HERE FROM [place], [place] FOR FAMILY REASONS. - History of Current Complaint Chief Complaint: UCGeneralIllness Stated Complaint: COUGH CHILLS FEVER Time Seen by Provider: 07/03/19 09:29 Hx Obtained From: Patient Onset/Duration: Sudden Onset, Lasting Hours, Still Present Timing: Constant Severity Initially: Moderate Severity Currently: Moderate Pain Intensity: 10 Pain Scale Used: 0-10 Numeric Character: Cough: Nonproductive Aggravating Factors: Nothing Alleviating Factors: Nothing Associated Signs And Symptoms: Positive: Fever, Chills. Negative: Dyspnea, Wheezing, URI, Nasal Congestion - Allergies/Home Medications Allergies/Adverse Reactions: Allergies Allergy/AdvReac Type Severity Reaction Status Date / Time metoclopramide [From Reglan] Allergy Hallucinati Verified 07/03/19 09:02 ons prochlorperazine Allergy See Comment Verified 07/03/19 09:02 [From Compazine] PMH/Surg Hx/FS Hx/Imm Hx Psychological History: Bipolar Disorder - Surgical History Surgical History: Yes Surgery Procedure, Year, and Place: Umbilical and inguinal hernia repair 2016. Gastric stapling 1996. gallbladder 1999 - Family History Known Family History: Positive: Other Family History: father with lung CA - Social History Alcohol Use: None Substance Use Type: None Smoking Status (MU): Never Smoked Tobacco Have You Smoked in the Last Year: No Review of Systems All Other Systems Reviewed And Are Negative: Yes Constitutional: Positive: Fever, Fatigue ENT: Positive: Negative Respiratory: Positive: Cough Cardiovascular: Positive: Negative Gastrointestinal: Positive: Negative Musculoskeletal: Positive: Myalgia Neurological: Positive: Headache Physical Exam Triage Information Reviewed: Yes Appearance: Well-Appearing, No Pain Distress, Well-Nourished Vital Signs: Initial Vital Signs Temp 102.2 F 07/03/19 09:03 Pulse 87 07/03/19 09:03 Resp 16 07/03/19 09:03 BP 112/64 07/03/19 09:03 Pulse Ox 96 07/03/19 09:03 Vital Signs Reviewed: Yes Eyes: Positive: Conjunctiva Clear ENT: Positive: Hearing grossly normal Neck: Positive: Supple, Nontender, No Lymphadenopathy Respiratory Exam: Normal Cardiovascular Exam: Normal Abdomen Description: Positive: Soft Musculoskeletal: Positive: No Edema Neurological: Positive: Alert Psychological: Positive: Age Appropriate Behavior Skin: Negative: Rashes Diagnostics - Radiology CXR Radiology Interpretation Completed By: Radiologist Summary of Radiographic Findings: Left basilar pneumonia. Respiratory Course/Dx - Course Course Of Treatment: CHEST X-RAY SHOWS LEFT LOWER LOBE PNEUMONIA. WILL GIVE DOXYCYCLINE TWICE DAILY FOR 10 DAYS. ADVISE REPEAT CHEST X-RAY IN 4-6 WEEKS TO ENSURE RESOLUTION. PATIENT STATES THIS IS THE THIRD TIME HE HAS HAD A LEFT LOWER LOBE PNEUMONIA. I RECOMMENDED HE FOLLOW UP WITH A COMPRESS MACHINE OPERATOR FOR FURTHER EVALUATION. PATIENT ALSO REQUESTING A REFILL OF HIS TOPAMAX. TAKES FOR BIPOLAR DISORDER AND STATES HE ONLY HAS 2 PILLS LEFT. REPORTS HE HAS AN APPOINTMENT WITH [facility] IN 3 WEEKS. - Differential Dx/Diagnosis Provider Diagnosis: Left lower lobe pneumonia Discharge - Sign-Out/Discharge Documenting (check all that apply): Patient Departure All imaging exams completed and their final reports reviewed: Yes - Discharge Plan Condition: Stable Disposition: HOME Prescriptions: Doxycycline Monohydrate 1 cap PO BID #20 cap Topiramate 25 mg PO DAILY #21 tablet Patient Education Materials: Pneumonia (ED) Referrals: [facility] [Outside] (F/U 4-6 WEEKS) Mariana Holman MD [Medical Doctor] - Additional Instructions: CHEST X-RAY TODAY SHOWS LEFT BASILAR PNEUMONIA. TAKE THE DOXYCYCLINE TWICE DAILY FOR THE FULL 10 DAYS. FOLLOW-UP WITH [facility] OR A PCP FOR REPEAT CHEST X-RAY IN 4-6 WEEKS TO ENSURE IT HAS CLEARED. GIVEN YOUR HISTORY OF RECURRENT LEFT LOWER LOBE PNEUMONIA I RECOMMEND YOU FOLLOW-UP WITH A COMPRESS MACHINE OPERATOR EITHER HERE IN [place] OR WHEN YOU RETURN HOME TO [place], [place]. GO TO THE ER WITHOUT FAIL IF YOU DEVELOP WORSENING SHORTNESS OF BREATH, PERSISTENT FEVER, NAUSEA/VOMITING, PAIN WITH BREATHING OR ANY OTHER CONCERNING SYMPTOMS. I HAVE GIVEN YOU 3 WEEKS OF TOPAMAX TO GET YOU THROUGH TO YOUR APPOINTMENT AT [facility]. - Billing Disposition and Condition Condition: STABLE Disposition: Home
== END 2019-07-03 11:05 | disposition home or self-care (01) ==
LOC: UCEAST 08:47
DX: J18.9 Pneumonia, unspecified organism (principal); F31.9 Bipolar disorder, unspecified
CPT/HCPCS: 71046; 99212; A9270-GY; G0463

== ENCOUNTER 2019-07-10 17:46 | Emergency (ER) | payer SELFPAY ==
[2019-07-10 17:57] VITALS: BP 135/87
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
--- NOTE | 2019-07-11 07:59 | UC ---
- Progress Note Progress Note: patient sent to ER Course/Dx - Diagnoses Provider Diagnoses: Cough, Nausea, Abdominal pain Discharge - Sign-Out/Discharge Documenting (check all that apply): Post-Discharge Follow Up All imaging exams completed and their final reports reviewed: Yes - Discharge Plan Condition: Stable Disposition: HOME-RECOMMEND TO ED Referrals: No Primary Care Phys,NOPCP [Primary Care Provider] - Additional Instructions: Please go to the ED for further evaluation of your vomiting and abdominal pain - Billing Disposition and Condition Condition: STABLE Disposition: Home-Recommend to ED
== END 2019-07-10 18:50 | disposition home health service (06) ==
LOC: UCEAST 17:46
DX: R05 Cough (principal); R11.0 Nausea; R10.9 Unspecified abdominal pain; F31.9 Bipolar disorder, unspecified
CPT/HCPCS: 71046; 99212; G0463

== ENCOUNTER 2019-07-10 19:35 | Emergency (ER) | payer SELFPAY ==
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
[2019-07-10] MEDS ORDERED: Ondansetron INJ* 2 MG/ML VIAL IV ONE (21:07)
[2019-07-10] MEDS ORDERED: NS 0.9% 1000 ML** 1,000 ML IV ONE (21:07)
[2019-07-10 21:42] LABS: ABS Basophils 0.1 10^3/ul (0-0.2); ABS Eosinophils 0.1 10^3/ul (0-0.6); ABS Lymphocytes 1.6 10^3/ul (1.0-4.8); ABS Monocytes 0.5 10^3/ul (0-0.8); ABS Neutrophils 2.9 10^3/ul (1.5-7.7); Eosinophil % 2.4 %; Hematocrit 37 % (42-52); Hemoglobin 12.1 g/dL (14.0-18.0); Lymphocyte % 30.7 %; Mean Corpuscular HGB Conc 33 g/dL (31-36); Mean Corpuscular Hemoglobin 26 pg (27-31); Mean Corpuscular Volume 79 fL (80-94); Mean Platelet Volume 7.6 fL (7.4-10.4); Nucleated Red Blood Cells % 0.1; Platelet Count 318 10^3/uL (150-450); Red Blood Count 4.63 10^6 /uL (4.18-5.48); Red Cell Distribution Width 19 % (10-15); White Blood Count 5.1 10^3/uL (3.5-10.8)
[2019-07-10] MEDS ORDERED: Ketorolac INJ* 30 MG/ML 1 ML VIAL IV PUSH ONE (21:49)
[2019-07-10 21:57] LABS: Albumin 3.6 g/dL (3.2-5.2); Albumin/Globulin Ratio 1.2 (1-3); BUN/Creatinine Ratio 8.1 (8-20); C Reactive Protein 4.07 mg/L (<8.01); Calcium 9.9 mg/dL (8.6-10.3); EGFR African American 72.9 (>60); EGFR Non-African American 60.2 (>60); Globulin 3.1 g/dL (2-4); Magnesium 2.3 mg/dL (1.9-2.7); Potassium 3.5 mmol/L (3.5-5.0); Total Bilirubin 0.5 mg/dL (0.2-1.0); Total Protein 6.7 g/dL (6.4-8.9)
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
[2019-07-10] MEDS ORDERED: Iohexol 300* (CONTRAST) 10 ML SDV IV ONE (22:21)
[2019-07-10 22:25] LABS: Urine Appearance Cloudy; Urine Bilirubin Negative (Negative); Urine Blood Negative (Negative); Urine Color Yellow; Urine Glucose Negative (Negative); Urine Ketones Negative (Negative); Urine Nitrite Negative (Negative); Urine Protein Negative (Negative); Urine Specific Gravity 1.005 (1.010-1.030); Urine Urobilinogen Negative (Negative)
[2019-07-11 01:44] VITALS: BP 136/82
== END 2019-07-11 01:43 | disposition home or self-care (01) ==
LOC: ED 19:35
DX: R10.32 Left lower quadrant pain (principal); Z88.8 Allergy status to other drugs, medicaments and biological substances; K40.20 Bilateral inguinal hernia, without obstruction or gangrene, not specified as recurrent; K57.30 Diverticulosis of large intestine without perforation or abscess without bleeding
CPT/HCPCS: 36415; 74177; 80053; 81003; 83605; 83690; 83735; 84484; 85025; 86140; 93005; 96361; 96374; 96375; 99283; J1885; J2405; Q9967

== ENCOUNTER 2019-07-27 11:27 | Emergency (ER) | payer SELFPAY ==
[2019-07-27] MEDS ORDERED: Ondansetron INJ* 2 MG/ML VIAL IV ONE (12:37)
--- NOTE | 2019-07-27 12:38 | ED ---
Skin Complaint - History of Current Complaint Chief Complaint: EDGeneral Time Seen by Provider: 07/27/19 12:21 Stated Complaint: SPIDER BITE PER PT Pain Intensity: 6 - Additional Pertinent History Primary Care Physician: ALBERTO - Allergy/Home Medications Allergies/Adverse Reactions: Allergies Allergy/AdvReac Type Severity Reaction Status Date / Time metoclopramide [From Reglan] Allergy Hallucinati Verified 07/27/19 12:30 ons prochlorperazine Allergy See Comment Verified 07/27/19 12:30 [From Compazine] PMH/Surg Hx/FS Hx/Imm Hx Endocrine/Hematology History: Denies: Hx Diabetes Cardiovascular History: Denies: Hx Hypertension Respiratory History: Denies: Hx Asthma, Hx Chronic Obstructive Pulmonary Disease (COPD) GI History: Reports: Hx Gall Bladder Disease, Other GI Disorders - gastric stapling Sensory History: Reports: Hx Contacts or Glasses Denies: Hx Hearing Aid Opthamlomology History: Reports: Hx Contacts or Glasses Neurological History: Reports: Other Neuro Impairments/Disorders - guillian [place] Denies: Hx Dementia - Surgical History Surgery Procedure, Year, and Place: Umbilical and inguinal hernia repair 2016. Gastric stapling 1996. gallbladder 1999 Infectious Disease History: No Infectious Disease History: Denies: Traveled Outside the [place] in Last 30 Days - Family History Known Family History: Positive: Other - lung cancer, Non-Contributory Family History: father with lung CA - Social History Alcohol Use: None Substance Use Type: Reports: None Hx Tobacco Use: No Smoking Status (MU): Never Smoked Tobacco Have You Smoked in the Last Year: No Physical Exam Vital Signs On Initial Exam: Initial Vitals Temp Pulse Resp BP Pulse Ox 98.4 F 77 16 133/90 99 07/27/19 11:32 07/27/19 11:32 07/27/19 11:32 07/27/19 11:32 07/27/19 11:32 Diagnostics - Vital Signs Vital Signs Temp Pulse Resp BP Pulse Ox 07/27/19 11:32 98.4 F 77 16 133/90 99 - Laboratory Lab Statement: Any lab studies that have been ordered have been reviewed, and results considered in the medical decision making process. Discharge ED - Discharge Plan Referrals: No Primary Care Phys,NOPCP [Primary Care Provider] - - Attestation Statements Document Initiated by Scribe: Yes
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
[2019-07-27 12:57] LABS: ABS Basophils 0.1 10^3/ul (0-0.2); ABS Eosinophils 0.1 10^3/ul (0-0.6); ABS Lymphocytes 1.2 10^3/ul (1.0-4.8); ABS Monocytes 0.4 10^3/ul (0-0.8); ABS Neutrophils 3.5 10^3/ul (1.5-7.7); Eosinophil % 2.2 %; Hematocrit 36 % (42-52); Lymphocyte % 23.1 %; Mean Corpuscular HGB Conc 34 g/dL (31-36); Mean Corpuscular Hemoglobin 27 pg (27-31); Mean Corpuscular Volume 80 fL (80-94); Mean Platelet Volume 7.2 fL (7.4-10.4); Platelet Count 284 10^3/uL (150-450); Red Blood Count 4.49 10^6 /uL (4.18-5.48); Red Cell Distribution Width 19 % (10-15); White Blood Count 5.4 10^3/uL (3.5-10.8)
[2019-07-27 13:15] LABS: Albumin 3.4 g/dL (3.2-5.2); Albumin/Globulin Ratio 1.2 (1-3); BUN/Creatinine Ratio 8.3 (8-20); EGFR Non-African American 80.2 (>60); Globulin 2.9 g/dL (2-4); Total Bilirubin 0.7 mg/dL (0.2-1.0); Total Protein 6.3 g/dL (6.4-8.9)
[2019-07-27] MEDS ORDERED: KCL 10 MEQ/50 ML IVPREMIX* 10 MEQ/50 ML BAG IV ONE (13:37)
[2019-07-27] MEDS ORDERED: Ketorolac INJ* 30 MG/ML 1 ML VIAL IV PUSH ONE (14:35)
[2019-07-27 15:39] VITALS: BP 144/95
== END 2019-07-27 15:39 | disposition home or self-care (01) ==
LOC: ED 11:27
DX: S40.862A Insect bite (nonvenomous) of left upper arm, initial encounter (principal); S40.861A Insect bite (nonvenomous) of right upper arm, initial encounter; R11.10 Vomiting, unspecified; W57.XXXA Bitten or stung by nonvenomous insect and other nonvenomous arthropods, initial encounter; Y92.9 Unspecified place or not applicable; Z79.899 Other long term (current) drug therapy; Z88.8 Allergy status to other drugs, medicaments and biological substances
CPT/HCPCS: 36415; 80053; 83605; 85025; 96365; 96366; 96375; 99283; J1885; J2405; J3480

== ENCOUNTER 2019-08-12 01:48 | Inpatient (IN) | payer MEDICAID ==
[2019-08-12] MEDS ORDERED: NS 0.9% 1000 ML** 2,000 ML IV ONE (02:41)
[2019-08-12] MEDS ORDERED: Ondansetron INJ* 2 MG/ML VIAL IV ONE (02:41)
[2019-08-12] MEDS ORDERED: Lorazepam PYXIS KEY PRN (02:42)
[2019-08-12] MEDS ORDERED: LORazepam INJ* 2 MG/ML 1 ML VIAL IV PUSH ONE (02:42)
[2019-08-12] MEDS ORDERED: Lorazepam PYXIS KEY ONE (02:57)
[2019-08-12 03:06] LABS: ABS Basophils 0.1 10^3/ul (0-0.2); ABS Eosinophils 0.1 10^3/ul (0-0.6); ABS Lymphocytes 0.8 10^3/ul (1.0-4.8); ABS Monocytes 0.3 10^3/ul (0-0.8); ABS Neutrophils 8.6 10^3/ul (1.5-7.7); Eosinophil % 0.9 %; Hematocrit 41 % (42-52); Hemoglobin 13.4 g/dL (14.0-18.0); Mean Corpuscular HGB Conc 33 g/dL (31-36); Mean Corpuscular Hemoglobin 27 pg (27-31); Mean Corpuscular Volume 82 fL (80-94); Mean Platelet Volume 7.2 fL (7.4-10.4); Platelet Count 348 10^3/uL (150-450); Red Blood Count 4.95 10^6 /uL (4.18-5.48); Red Cell Distribution Width 20 % (10-15); White Blood Count 9.8 10^3/uL (3.5-10.8)
[2019-08-12 03:22] LABS: Albumin 3.6 g/dL (3.2-5.2); BUN/Creatinine Ratio 7.4 (8-20); C Reactive Protein 5.82 mg/L (<8.01); Calcium 9.3 mg/dL (8.6-10.3); EGFR African American 74.3 (>60); EGFR Non-African American 61.4 (>60); Globulin 3.5 g/dL (2-4); Total Bilirubin 0.9 mg/dL (0.2-1.0); Total Protein 7.1 g/dL (6.4-8.9)
[2019-08-12] MEDS ORDERED: Azithromycin 500 mg/250 ml NS 500 MG/250 ML BAG IVPB ONE (03:36)
[2019-08-12] MEDS ORDERED: cefTRIAXone(*) 1 GM in NS 0.9% 50 ML* 50 ML IVPB ONE (03:36)
[2019-08-12] MEDS ORDERED: Potassium Chloride* LIQUID 20 MEQ/15 ML UDC PO ONE (06:32)
--- NOTE | 2019-08-12 06:35 | ED ---
Complex/Multi-Sys Presentation - HPI Summary HPI Summary: Patient is a 58 y/o M w/ Hx of PNA who presents to [facility] with complaints of SOB and coughing. He reports three previous episodes of PNA and is concerned he has it again. Patient reports onset of a "wet" cough four days ago. He additionally endorses N/V, decreased appetite, and fever. Diarrhea is denied; he states that he had been constipated previously and then had a bowel movement with blood. He also claims that he had blood in his vomit yesterday. He denies tobacco, alcohol and substance usage. On triage, associated severity is rated 10/10, nothing is noted to aggravate/alleviate Sx. Home medications and allergies are reviewed. - History Of Current Complaint Chief Complaint: EDUpperRespComplaint Time Seen by Provider: 08/12/19 02:34 Hx Obtained From: Patient Onset/Duration: Lasting Days, Still Present Timing: Constant, Days Severity Currently: Severe Aggravating Factor(s): nothing Alleviating Factor(s): nothing Associated Signs And Symptoms: Positive: SOB, Cough, Nausea, Vomiting, Fever, Other - positive - decreased appetite, constipation, bowel movement with blood, vomit with blood. Negative: Diarrhea - Allergies/Home Medications Allergies/Adverse Reactions: Allergies Allergy/AdvReac Type Severity Reaction Status Date / Time metoclopramide [From Reglan] Allergy Hallucinati Verified 08/12/19 01:50 ons prochlorperazine Allergy See Comment Verified 08/12/19 01:50 [From Compazine] PMH/Surg Hx/FS Hx/Imm Hx Endocrine/Hematology History: Denies: Hx Diabetes Cardiovascular History: Denies: Hx Hypertension Respiratory History: Reports: Hx Pneumonia Denies: Hx Asthma, Hx Chronic Obstructive Pulmonary Disease (COPD) GI History: Reports: Hx Gall Bladder Disease, Other GI Disorders - gastric stapling History: Reports: Hx Kidney Stones Sensory History: Reports: Hx Contacts or Glasses Denies: Hx Hearing Aid Opthamlomology History: Reports: Hx Contacts or Glasses Neurological History: Reports: Other Neuro Impairments/Disorders - guillian [place] Denies: Hx Dementia - Surgical History Surgery Procedure, Year, and Place: Umbilical and inguinal hernia repair 2016. Gastric stapling 1996. gallbladder 1999. 5 skin surgeries Infectious Disease History: No Infectious Disease History: Denies: Traveled Outside the [place] in Last 30 Days - Family History Known Family History: Positive: Other - lung cancer Family History: father with lung CA - Social History Alcohol Use: None Substance Use Type: Reports: None Hx Tobacco Use: No Smoking Status (MU): Never Smoked Tobacco Have You Smoked in the Last Year: No Review of Systems Positive: Fever Positive: Shortness Of Breath, Cough Gastrointestinal: Other - positive - constipation, decreased appetite, bowel movement with blood Positive: Vomiting - with blood yesterday, Nausea. Negative: Diarrhea All Other Systems Reviewed And Are Negative: Yes Physical Exam - Summary Physical Exam Summary: Appearance: Well-appearing, Well-nourished, lying in bed comfortably Skin: Warm, dry, no obvious rash Eyes: sclera anicteric, no conjunctival pallor ENT: mucous membranes moist, pharynx appears normal Neck: Supple, nontender Respiratory: Decreased breath sounds and rhonchi on the left, no signs of respiratory distress Cardiovascular: Normal S1, S2. No murmurs. Normal distal pulses in tibial and radial bilaterally. Abdomen: Soft, nontender, normal active bowel sounds present Musculoskeletal: Normal, Strength/ROM Intact Neurological: A&Ox3, awake and alert, mentation is normal, speech is fluent and appropriate Psychiatric: Anxious appearing Triage Information Reviewed: Yes Vital Signs On Initial Exam: Initial Vitals Temp Pulse Resp BP Pulse Ox 97.1 F 86 16 109/67 90 08/12/19 01:49 08/12/19 01:49 08/12/19 01:49 08/12/19 01:49 08/12/19 01:49 Vital Signs Reviewed: Yes Diagnostics - Vital Signs Vital Signs Temp Pulse Resp BP Pulse Ox 08/12/19 06:01 89 92 08/12/19 05:59 88 123/80 92 08/12/19 05:29 125/83 08/12/19 05:01 89 91 08/12/19 04:59 89 119/80 91 08/12/19 04:29 86 120/78 92 08/12/19 04:01 87 90 08/12/19 03:59 90 124/80 90 08/12/19 03:29 88 148/89 90 08/12/19 03:27 18 08/12/19 03:06 86 93 08/12/19 02:43 87 74 08/12/19 01:49 97.1 F 86 16 109/67 90 - Laboratory Lab Results: Lab Results 08/12/19 08/12/19 08/12/19 Range/Units 02:56 02:56 02:56 WBC 9.8 (3.5-10.8) 10^3/uL RBC 4.95 (4.18-5.48) 10^6 /uL Hgb 13.4 L (14.0-18.0) g/dL Hct 41 L (42-52) % MCV 82 (80-94) fL MCH 27 (27-31) pg MCHC 33 (31-36) g/dL RDW 20 H (10-15) % Plt Count 348 (150-450) 10^3/uL MPV 7.2 L (7.4-10.4) fL Neut % (Auto) 87.6 % Lymph % (Auto) 8.0 % Moore % (Auto) 2.8 % Eos % (Auto) 0.9 % Baso % (Auto) 0.7 % Absolute Neuts (auto) 8.6 H (1.5-7.7) 10^3/ul Absolute Lymphs (auto) 0.8 L (1.0-4.8) 10^3/ul Absolute Monos (auto) 0.3 (0-0.8) 10^3/ul Absolute Eos (auto) 0.1 (0-0.6) 10^3/ul Absolute Basos (auto) 0.1 (0-0.2) 10^3/ul Absolute Nucleated RBC 0.0 10^3/ul Nucleated RBC % 0.0 Sodium 140 (135-145) mmol/L Potassium 3.0 L (3.5-5.0) mmol/L Chloride 104 (101-111) mmol/L Carbon Dioxide 29 (22-32) mmol/L Anion Gap 7 (2-11) mmol/L BUN 9 (6-24) mg/dL Creatinine 1.21 H (0.67-1.17) mg/dL Est GFR ( Amer) 74.3 (>60) Est GFR (Non-Af Amer) 61.4 (>60) BUN/Creatinine Ratio 7.4 L (8-20) Glucose 108 H (70-100) mg/dL Lactic Acid 2.4 H* (0.5-2.0) mmol/L Calcium 9.3 (8.6-10.3) mg/dL Total Bilirubin 0.90 (0.2-1.0) mg/dL AST 25 (13-39) U/L ALT 24 (7-52) U/L Alkaline Phosphatase 91 (34-104) U/L Troponin I 0.00 (<0.04) ng/mL C-Reactive Protein 5.82 (<8.01) mg/L Total Protein 7.1 (6.4-8.9) g/dL Albumin 3.6 (3.2-5.2) g/dL Globulin 3.5 (2-4) g/dL Albumin/Globulin Ratio 1.0 (1-3) Result Diagrams: 08/14/19 05:48 08/14/19 05:48 Lab Statement: Any lab studies that have been ordered have been reviewed, and results considered in the medical decision making process. Re-Evaluation - Re-Evaluation First Eval Re-Evaluation Time: 03:25 Comment: Aware of 2.4 lactic acid Complex Multi-Symp Course/Dx Course Of Treatment: Patient is a 58 y/o M w/ Hx of PNA who presents to [facility] with complaints of SOB and coughing. He reports three previous episodes of PNA and is concerned he has it again. Patient reports onset of a "wet" cough four days ago. He additionally endorses N/V, decreased appetite, and fever. Diarrhea is denied; he states that he had been constipated previously and then had a bowel movement with blood. He also claims that he had blood in his vomit yesterday. He denies tobacco, alcohol and substance usage. On physical exam, patient is noted to be anxious appearing. He has decreased breath sounds and rhonchi on the left. Bloodwork was obtained. Abnormal values include Hgb 13.4, Hct 41, RDW 20, MPV 7.2, absolute neuts 8.6, absolute lymphs 0.8, potassium 3, creatinine 1.21, BUN/creatinine 7.4, glucose 108, and lactic acid 2.4. Trop was negative. CXR showed LLL PNA. During ED course, patient received fluids, Zofran 8 mg IV, Ativan 1 mg IV, ceftriaxone sodium 1 gm in sodium chloride 50 mls @ 100 mls/hr IVPB, and Zithromax 500 mg in 250 mls @ 250 mls/hr IVPB. 0441 - Patients case was discussed with Dr. Rendon, Dr. Rendon to evaluate the patient for admission. 627 Dr. Rendon accepts the patient for admission. - Diagnoses Provider Diagnoses: PNA (pneumonia) - Physician Notifications Discussed Care Of Patient With: Kane Rendon Time Discussed With Above Provider: 04:41 Instructed by Provider To: Other - 0441 - Patients case was discussed with Dr. Rendon, Dr. Rendon to evaluate the patient for admission. 627 Dr. Rendon accepts the patient for admission. Discharge ED - Sign-Out/Discharge Documenting (check all that apply): Patient Departure - admit Patient Received Moderate/Deep Sedation with Procedure: No - Discharge Plan Condition: Improved Disposition: ADMITTED TO [facility] - Billing Disposition and Condition Condition: IMPROVED Disposition: Admitted to [facility] - Attestation Statements Document Initiated by Jaz: Yes Documenting Scribe: SHERRELL RILEY Provider For Whom Jaz is Documenting (Include Credential): YARITZA ALFORD MD Scribe Attestation: SHERRELL Medrano, scribed for YARITZA ALFORD MD on 08/17/19 at 0542. Scribe Documentation Reviewed: Yes Provider Attestation: The documentation as recorded by the SHERRELL to accurately reflects the service I personally performed and the decisions made by YARITZA sosa MD Status of Scribkarina Document: Viewed
[2019-08-12 06:49] LABS: Magnesium 1.8 mg/dL (1.9-2.7)
[2019-08-12] MEDS: KCL 20 MEQ/100 ML IVPREMIX* 20 MEQ/100 ML BAG IV SCH ×2 (07:43→14:59)
[2019-08-12] MEDS ORDERED: Magnesium Sulfate 2 GM IV* 2 GM/50 ML BAG IVPB ONE (08:52)
[2019-08-12] MEDS ORDERED: Ondansetron ODT TAB* 4 MG SL PRN (09:21)
[2019-08-12] MEDS ORDERED: Amoxicillin/Clavulanate TAB* 875 MG PO SCH (10:00)
[2019-08-12] MEDS ORDERED: Ketorolac INJ* 30 MG/ML 1 ML VIAL IV PUSH ONE (12:07)
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
[2019-08-12] MEDS: Acetaminophen TAB* 325 MG PO PRN (12:57)
[2019-08-12 13:33] LABS: Urine Appearance Turbid; Urine Bilirubin Negative (Negative); Urine Blood Negative (Negative); Urine Color Yellow; Urine Glucose 1+(50 mg/dL) (Negative); Urine Ketones Negative (Negative); Urine Nitrite Negative (Negative); Urine Protein Negative (Negative); Urine Specific Gravity 1.012 (1.010-1.030); Urine Urobilinogen Negative (Negative)
[2019-08-12] MEDS ORDERED: KCL 20 MEQ/100 ML IVPREMIX* 20 MEQ/100 ML BAG ONE (14:56)
[2019-08-12] MEDS ORDERED: oxyCODONE TAB* 5 MG TAB PO PRN (16:13)
--- NOTE | 2019-08-12 16:38 | PN ---
Subjective Date of Service: 08/12/19 Interval History: Pt states that "everything hurts", but mostly chest when breathing and his lower abdomen. Had been unable to keep anything down x 3 days, vomiting when he tries to sleep the vomitus is brown with pink Had a fever on 101.9 this AM Objective Active Medications: Acetaminophen (Tylenol Tab*) 650 mg PO Q4H PRN PRN Reason: FEVER/PAIN Last Admin: 08/12/19 12:57 Dose: 650 mg Piperacillin Sod/Tazobactam (Sod 3.375 gm/ Sodium Chloride) 100 mls @ 200 mls/ hr IVPB ONCE ONE Stop: 08/12/19 17:00 Sodium Chloride (Ns 0.9% 1000 Ml) 1,000 mls @ 100 mls/hr IV PER RATE BERT Melatonin (Melatonin) 3 mg PO BEDTIME BERT Miscellaneous (Ativan Pyxis Gallardo) 1 ea N/A .ATIVAN IV GALLARDO PRN PRN Reason: PYXIS GALLARDO Morphine Sulfate (Morphine Inj (Syringe)*) 2 mg IV Q4H PRN PRN Reason: severe pain Ondansetron HCl (Zofran Odt Tab*) 4 mg SL Q6H PRN PRN Reason: NAUSEA/VOMITING Last Admin: 08/12/19 15:09 Dose: 4 mg Pharmacy Consult (Zosyn Per Pharmacy*) 1 note FOLLOW UP .ZOSYN PER PHARMACY BERT Topiramate (Topamax(*)) 25 mg PO BEDTIME [facility] Vital Signs - 8 hr 08/12/19 08/12/19 08/12/19 08:45 11:05 15:15 Temperature 98.7 F 101.9 F 98.7 F Pulse Rate 77 83 81 Respiratory 30 28 26 Rate Blood Pressure 91/56 108/51 94/44 (mmHg) O2 Sat by Pulse 97 99 91 Oximetry Oxygen Devices in Use Now: Nasal Cannula Appearance: 58 yo m in nAD, AAOx3, poor historian Eyes: No Scleral Icterus, PERRLA Ears/Nose/Mouth/Throat: NL Teeth, Lips, Gums, Mucous Membranes Moist Neck: NL Appearance and Movements; NL JVP, Trachea Midline Respiratory: Symmetrical Chest Expansion and Respiratory Effort, - - rhonchi at LLL Cardiovascular: NL Sounds; No Murmurs; No JVD, RRR Abdominal: - - mild distention, soft, NT, BS hypoactive, L inguinal hernia nontender Lymphatic: No Cervical Adenopathy Extremities: No Edema, No Clubbing, Cyanosis Skin: No Rash or Ulcers, No Nodules or Sclerosis Neurological: Alert and Oriented x 3, NL Muscle Strength and Tone Result Diagrams: 08/12/19 02:56 08/12/19 02:56 Additional Lab and Data: Lab Results 08/12/19 08/12/19 08/12/19 Range/Units 02:56 02:56 02:56 WBC 9.8 (3.5-10.8) 10^3/uL RBC 4.95 (4.18-5.48) 10^6 /uL Hgb 13.4 L (14.0-18.0) g/dL Hct 41 L (42-52) % MCV 82 (80-94) fL MCH 27 (27-31) pg MCHC 33 (31-36) g/dL RDW 20 H (10-15) % Plt Count 348 (150-450) 10^3/uL MPV 7.2 L (7.4-10.4) fL Neut % (Auto) 87.6 % Lymph % (Auto) 8.0 % Cal[place]oun % (Auto) 2.8 % Eos % (Auto) 0.9 % Baso % (Auto) 0.7 % Absolute Neuts (auto) 8.6 H (1.5-7.7) 10^3/ul Absolute Lymphs (auto) 0.8 L (1.0-4.8) 10^3/ul Absolute Monos (auto) 0.3 (0-0.8) 10^3/ul Absolute Eos (auto) 0.1 (0-0.6) 10^3/ul Absolute Basos (auto) 0.1 (0-0.2) 10^3/ul Absolute Nucleated RBC 0.0 10^3/ul Nucleated RBC % 0.0 Sodium 140 (135-145) mmol/L Potassium 3.0 L (3.5-5.0) mmol/L Chloride 104 (101-111) mmol/L Carbon Dioxide 29 (22-32) mmol/L Anion Gap 7 (2-11) mmol/L BUN 9 (6-24) mg/dL Creatinine 1.21 H (0.67-1.17) mg/dL Est GFR ( Amer) 74.3 (>60) Est GFR (Non-Af Amer) 61.4 (>60) BUN/Creatinine Ratio 7.4 L (8-20) Glucose 108 H (70-100) mg/dL Lactic Acid 2.4 H* (0.5-2.0) mmol/L Calcium 9.3 (8.6-10.3) mg/dL Total Bilirubin 0.90 (0.2-1.0) mg/dL AST 25 (13-39) U/L ALT 24 (7-52) U/L Alkaline Phosphatase 91 (34-104) U/L Troponin I 0.00 (<0.04) ng/mL C-Reactive Protein 5.82 (<8.01) mg/L Total Protein 7.1 (6.4-8.9) g/dL Albumin 3.6 (3.2-5.2) g/dL Globulin 3.5 (2-4) g/dL Albumin/Globulin Ratio 1.0 (1-3) Microbiology and Other Data: Microbiology 08/12/19 12:07 Streptococcus pneumoniae Ag Screen - Final Urine Negative S. pneumo Antigen 08/12/19 12:07 Legionella Urinary Antigen - Final Urine Negative Legionella Antigen Assess/Plan/Problems-Billing Assessment: 58 yo m with h/o inguinal and hiatal hernia repair and gastric bypass present with N/V and SOB, likely aspiration - Patient Problems (1) Nausea & vomiting Comment: will get CT to eval for SBO, unfortunately pt would not tolerate PO contrast Place on NPO except sips of water, and PPI BID Check gastric occult blood (2) Aspiration pneumonia Comment: will start Zosyn, d/c Agumentin (3) DVT prophylaxis Comment: -SCDs Status and Disposition: inpatient
[2019-08-12] MEDS ORDERED: Piperacillin/Tazobac ADVAN(*) 3.375 GM in NS 0.9% 100 ML* 100 ML IVPB ONE (17:00)
[2019-08-12] MEDS ORDERED: Zosyn per Pharmacy* NOTE FOLLOW UP SCH (17:00)
[2019-08-12] MEDS: Pantoprazole IV* 40 MG IV SCH (17:03)
[2019-08-12] MEDS: NS 0.9% 1000 ML** 1,000 ML IV SCH ×2 (17:04→22:34)
[2019-08-12] MEDS: Morphine INJ* 2 MG/ML 1 ML SYRINGE (TWO MG - NEW SYRINGE VERSION) IV PRN ×2 (17:29→22:26)
[2019-08-12] MEDS: Topiramate TAB(*) 25 MG PO SCH (22:23)
[2019-08-12] MEDS: Melatonin 3 MG TAB PO SCH (22:23)
[2019-08-13] MEDS: ZOSYN 3.375 GM Q8H per EXTENDED INFUSION IVPB SCH ×8 (00:05→21:52)
[2019-08-13] MEDS: Morphine INJ* 2 MG/ML 1 ML SYRINGE (TWO MG - NEW SYRINGE VERSION) IV PRN ×3 (03:23→20:11)
[2019-08-13] MEDS ORDERED: cefTRIAXone(*) 1 GM in NS 0.9% 50 ML* 50 ML IVPB SCH (04:00)
[2019-08-13] MEDS ORDERED: Azithromycin 500 mg/250 ml NS 500 MG/250 ML BAG IVPB SCH (05:00)
[2019-08-13] MEDS: Pantoprazole IV* 40 MG IV SCH (05:35)
[2019-08-13 05:40] LABS: ABS Lymphocytes 0.5 10^3/ul (1.0-4.8); ABS Monocytes 0.4 10^3/ul (0-0.8); ABS Neutrophils 8.9 10^3/ul (1.5-7.7); Eosinophil % 0.1 %; Hematocrit 34 % (42-52); Hemoglobin 10.9 g/dL (14.0-18.0); Lymphocyte % 5.2 %; Mean Corpuscular HGB Conc 33 g/dL (31-36); Mean Corpuscular Hemoglobin 27 pg (27-31); Mean Corpuscular Volume 83 fL (80-94); Mean Platelet Volume 7.4 fL (7.4-10.4); Platelet Count 210 10^3/uL (150-450); Red Blood Count 4.03 10^6 /uL (4.18-5.48); Red Cell Distribution Width 20 % (10-15); White Blood Count 9.9 10^3/uL (3.5-10.8)
[2019-08-13 05:58] LABS: BUN/Creatinine Ratio 10.9 (8-20); Calcium 7.9 mg/dL (8.6-10.3); EGFR African American 75.7 (>60); EGFR Non-African American 62.6 (>60); Potassium 3.8 mmol/L (3.5-5.0)
[2019-08-13] MEDS ORDERED: Pantoprazole IV* 40 MG IV SCH (10:00)
--- NOTE | 2019-08-13 10:59 | PN ---
Subjective Date of Service: 08/13/19 Interval History: Pt feels much better, had been PO since CT last night and requests to eat. Agrees to NPO status with noted obstruction non CT Objective Active Medications: Acetaminophen (Tylenol Tab*) 650 mg PO Q4H PRN PRN Reason: FEVER/PAIN Last Admin: 08/12/19 12:57 Dose: 650 mg Sodium Chloride (Ns 0.9% 1000 Ml) 1,000 mls @ 100 mls/hr IV PER RATE [facility] Last Admin: 08/12/19 22:34 Dose: 100 mls/hr Piperacillin Sod/Tazobactam (Sod 3.375 gm/ Sodium Chloride) 100 mls @ 25 mls/ hr IVPB Q8H [facility] Last Admin: 08/13/19 05:37 Dose: 25 mls/hr Melatonin (Melatonin) 3 mg PO BEDTIME [facility] Last Admin: 08/12/19 22:23 Dose: 3 mg Miscellaneous (Ativan Pyxis Hubbard) 1 ea N/A .ATIVAN IV HUBBARD PRN PRN Reason: PYXIS HUBBARD Morphine Sulfate (Morphine Inj (Syringe))*) 2 mg IV Q4H PRN PRN Reason: PAIN - SEVERE Last Admin: 08/13/19 10:38 Dose: 2 mg Ondansetron HCl (Zofran Odt Tab*) 4 mg SL Q6H PRN PRN Reason: NAUSEA/VOMITING Last Admin: 08/12/19 15:09 Dose: 4 mg Pantoprazole Sodium (Protonix Iv*) 40 mg IV 0900 [facility] Pharmacy Consult (Zosyn Per Pharmacy*) 1 note FOLLOW UP .ZOSYN PER PHARMACY [facility] Topiramate (Topamax(*)) 25 mg PO BEDTIME [facility] Last Admin: 08/12/19 22:23 Dose: 25 mg Vital Signs - 8 hr 08/13/19 08/13/19 08/13/19 03:10 03:23 04:25 Temperature 99.3 F Pulse Rate 92 Respiratory 20 28 20 Rate Blood Pressure 99/51 (mmHg) O2 Sat by Pulse 95 Oximetry 08/13/19 08/13/19 07:28 10:38 Temperature 98.0 F Pulse Rate 85 Respiratory 18 18 Rate Blood Pressure 90/54 (mmHg) O2 Sat by Pulse 100 Oximetry Oxygen Devices in Use Now: Nasal Cannula Appearance: 58 yo M in nAD, AAOx3 Eyes: No Scleral Icterus, PERRLA Ears/Nose/Mouth/Throat: NL Teeth, Lips, Gums, Mucous Membranes Moist Neck: NL Appearance and Movements; NL JVP, Trachea Midline Respiratory: Symmetrical Chest Expansion and Respiratory Effort, - - coarse breath sounds b/l -much improved from prior Cardiovascular: NL Sounds; No Murmurs; No JVD Abdominal: NL Sounds; No Tenderness; No Distention, No Hepatosplenomegaly Lymphatic: No Cervical Adenopathy Extremities: No Edema, No Clubbing, Cyanosis Skin: No Rash or Ulcers, No Nodules or Sclerosis Neurological: Alert and Oriented x 3, NL Muscle Strength and Tone Result Diagrams: 08/13/19 05:16 08/13/19 05:16 Additional Lab and Data: Lab Results 08/12/19 08/12/19 08/12/19 Range/Units 02:56 02:56 02:56 WBC 9.8 (3.5-10.8) 10^3/uL RBC 4.95 (4.18-5.48) 10^6 /uL Hgb 13.4 L (14.0-18.0) g/dL Hct 41 L (42-52) % MCV 82 (80-94) fL MCH 27 (27-31) pg MCHC 33 (31-36) g/dL RDW 20 H (10-15) % Plt Count 348 (150-450) 10^3/uL MPV 7.2 L (7.4-10.4) fL Neut % (Auto) 87.6 % Lymph % (Auto) 8.0 % Emmons % (Auto) 2.8 % Eos % (Auto) 0.9 % Baso % (Auto) 0.7 % Absolute Neuts (auto) 8.6 H (1.5-7.7) 10^3/ul Absolute Lymphs (auto) 0.8 L (1.0-4.8) 10^3/ul Absolute Monos (auto) 0.3 (0-0.8) 10^3/ul Absolute Eos (auto) 0.1 (0-0.6) 10^3/ul Absolute Basos (auto) 0.1 (0-0.2) 10^3/ul Absolute Nucleated RBC 0.0 10^3/ul Nucleated RBC % 0.0 Sodium 140 (135-145) mmol/L Potassium 3.0 L (3.5-5.0) mmol/L Chloride 104 (101-111) mmol/L Carbon Dioxide 29 (22-32) mmol/L Anion Gap 7 (2-11) mmol/L BUN 9 (6-24) mg/dL Creatinine 1.21 H (0.67-1.17) mg/dL Est GFR ( Amer) 74.3 (>60) Est GFR (Non-Af Amer) 61.4 (>60) BUN/Creatinine Ratio 7.4 L (8-20) Glucose 108 H (70-100) mg/dL Lactic Acid 2.4 H* (0.5-2.0) mmol/L Calcium 9.3 (8.6-10.3) mg/dL Total Bilirubin 0.90 (0.2-1.0) mg/dL AST 25 (13-39) U/L ALT 24 (7-52) U/L Alkaline Phosphatase 91 (34-104) U/L Troponin I 0.00 (<0.04) ng/mL C-Reactive Protein 5.82 (<8.01) mg/L Total Protein 7.1 (6.4-8.9) g/dL Albumin 3.6 (3.2-5.2) g/dL Globulin 3.5 (2-4) g/dL Albumin/Globulin Ratio 1.0 (1-3) Microbiology and Other Data: Microbiology 08/12/19 12:07 Streptococcus pneumoniae Ag Screen - Final Urine Negative S. pneumo Antigen 08/12/19 12:07 Legionella Urinary Antigen - Final Urine Negative Legionella Antigen Assess/Plan/Problems-Billing Assessment: 58 yo m with h/o inguinal and hiatal hernia repair and gastric bypass present with N/V and SOB, likely aspiration - Patient Problems (1) Nausea & vomiting Comment: CT consistent with obstruction in the stomach cont [facility] EGD today (GI -Dr. Conley and surgery-Dr. Ventura-consulted) gastric occult blood neg (2) Aspiration pneumonia Comment: cont Zosyn, much improved clinically (3) CKD (chronic kidney disease) stage 2, GFR 60-89 ml/min Comment: creat at baseline (4) Anemia Comment: new, gastric heme-, will check stool occult May be also worse due to diluiton, no acute bleeding noted, cont to taranior (5) DVT prophylaxis Comment: -SCDs Status and Disposition: inpatient
[2019-08-13] MEDS ORDERED: fentaNYL* 50 MCG/ML 2 ML VIAL (100 MCG VIAL) ONE (14:26)
[2019-08-13] MEDS ORDERED: Midazolam* 1 MG/ML 10 ML VIAL (10 MG) ONE (14:27)
[2019-08-13] MEDS: Topiramate TAB(*) 25 MG PO SCH (20:11)
[2019-08-13] MEDS: Melatonin 3 MG TAB PO SCH (20:11)
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
[2019-08-13] MEDS: Acetaminophen TAB* 325 MG PO PRN (21:00)
--- NOTE | 2019-08-13 21:53 | PRO ---
DATE: 08/13/19 - ROOM #412 REFERRING PHYSICIAN: Dr. Kane Rendon.* PROCEDURE: Upper gastrointestinal endoscopy through to distal duodenum. INDICATION: This is a 58-year-old man who had a vertical banded gastroplasty in the ' with significant weight loss, comes in with recurring nausea and vomiting. He states this began 6 days ago. He takes Aleve every morning. He does not take any acid daron although it had been a plan in January when he was here before and had erosive GERD documented. See separate consult. He was admitted about 36 hours ago. ENDOSCOPIST: Dr. Conley. MEDICATIONS: Midazolam 5, fentanyl 50. FINDINGS: He is a substantially overweight middle-aged man, edentulous, in no overt distress. Breath sounds are diminished bilaterally. He was positioned left side down and moderate sedation administered and he tolerated the exam very well. EGD: Larynx - some purulent and clearish but pigmented secretion seen. There was no gross structural abnormality. Esophagus - easily entered, the mucosa is normal from 17 down to about 30 where then severe erosive GERD is noted. There is a network of severe erosions superficial to medium in depth. There is no mass or stricture. The EG junction is at 36 and then a moderate quite wide hiatal hernia. Stomach - the upper stomach, which consists of a pouch created by the VBG has couple of lentils in it but no significant retention. There is no ulcer. The central narrowing from the VBG is widely patent and there is no stricture there and no tightness or impediment to passing scope. Distal stomach - mucosa intact without any erosions or scarring. Duodenum - the pylorus, bulb and second to fourth portions appear normal. IMPRESSION: 1. Severe erosive gastroesophageal reflux disease. 2. [id number] hiatal hernia. 3. Vertical banded gastroplasty - no peptic lesion in the stomach and the minimal amount of retention is fully what one would expect. 4. Nausea and vomiting - a combination of factors, but especially a poor diet and noncompliance with the recommended acid reduction medication. Compliance is silva. [id number]/[facility] #: [id number] MTDD
[2019-08-13] MEDS ORDERED: Morphine INJ* 2 MG/ML 1 ML SYRINGE (TWO MG - NEW SYRINGE VERSION) IV ONE (23:08)
[2019-08-13] MEDS ORDERED: Albuterol/Ipratropium NEB.SOL* Albuterol 2.5 MG/Ipratropium 0.5 MG 3 ML INH ONE (23:08)
--- NOTE | 2019-08-13 23:09 | DS ---
CC: [facility]; Dr. Moya; Dr. Conley * DISCHARGE SUMMARY: DATE OF ADMISSION: 08/12/19 DATE OF ANTICIPATED DISCHARGE: 08/14/19 in the morning. PRIMARY CARE PROVIDER: None. DISCHARGE DIAGNOSES: 1. Sepsis due to aspiration pneumonia. 2. Severe gastroesophageal reflux disease. MEDICATIONS AT DISCHARGE: Include: 1. Augmentin 500 mg 1 tablet p.o. b.i.d. for a total of 6 days and then stop. 2. Zofran ODT 4 mg every 6 hours p.r.n. 3. Omeprazole 20 mg b.i.d. 4. Topiramate 25 mg at bedtime. 5. Potassium chloride 10 mEq daily. CONSULTATION DURING THE HOSPITAL STAY: Include Dr. Conley from GI. The patient had an EGD performed by Dr. Conley on 08/03/19 with the official report still pending, but shortly by verbal report from Dr. Conley, the patient was noted to have severe gastroesophageal reflux disease. LABORATORY DATA AND STUDIES PERFORMED DURING THE HOSPITAL STAY: Included: On , white blood cell count of 9.9, hemoglobin of 10.9, hematocrit of 34, and platelets of 210. Sodium of 140, potassium of 3.8, chloride 112, carbon dioxide 24, BUN 13, creatinine 1.19, lactic acid on examination of 2.4. CT of abdomen and pelvis obtained on 08/12/19, impression: "Multifocal pneumonia in bilateral lower lobes suggesting mechanical obstruction between the gastric compartments created by the prior sampling. No perforation. Mild hepatic steatosis 5 to 14% fraction. Bilateral inguinal hernia with no strangulation." HOSPITALIZATION COURSE: David Beck is a 58-year-old male who presented to the hospital complaining of nausea and vomiting whenever he tries to lay down, intractable, for approximately 3 days as well as shortness of breath and fever. The patient was diagnosed with aspiration pneumonia. He was placed on Zosyn and treated initially with oxygen, later on it was weaned. CT of abdomen and pelvis obtained on 08/12/19 showed possibility of obstruction. The patient has history of gastric bypass surgery performed by Dr. Abraham over 20 years ago and hiatal hernia repair a year and a half ago in [place]. Dr. Conley took patient to endoscopy suite for evaluation and noted for the patient to have some obstruction but severe gastroesophageal reflux disease. The patient was recommended to eat frequent small meals to avoid spicy, acidic and deep fried foods and to stay upright for approximately 2 hours prior to eating and definitely not go to bed earlier than 2 hours after dinner at night. He was also educated about having his head elevated with several pillows with the head of the bed approximately 30 degrees to alleviate his reflux disease. The severe reflux disease is due to the patient's postoperative anatomy and apart from behavioral adaptation and PPI twice a day, no further recommendations by the GI were made. The patient is going to be discharged home on Augmentin and omeprazole twice a day in addition to his current medications. He had problems with insurance but his social and human services assistant for consultation stated that his insurance was reinstated. Tonight, he is still slightly sedated from EGD and he has elected to go home tomorrow morning since he needs to drive himself. This discharge is dictated in anticipation of his discharge in the morning. For physical exam at the time of discharge, please see daily progress note. At discharge, the patient recommended to follow up with [facility] as well as with one of his gastroenterologists either Dr. Conley or Dr. Moya as the patient chooses. SECONDARY DIAGNOSES: Include: 1. History of Guillain-[place] syndrome 2. History of gastric bypass over 20 years ago. 3. History of hiatal and inguinal hernia repairs in 2018 in [place]. 4. History of chronic intermittent nausea since his gastric bypass surgery. 5. EGD performed in January 2019 showed grade C to D severe erosive esophagitis. Please note that this is a short summary of the patient's hospitalization. Please refer to further medical records for details. DISPOSITION AT DISCHARGE: Home. CONDITION ON DISCHARGE: Stable. TIME SPENT: Time spent on discharge approximately 40 minutes. [id number]/[facility] #: [id number] GABINO
[2019-08-14] MEDS ORDERED: guaiFENesin LIQ* 100 MG/5 ML UDC PO PRN (01:28)
[2019-08-14] MEDS: Morphine INJ* 2 MG/ML 1 ML SYRINGE (TWO MG - NEW SYRINGE VERSION) IV PRN (03:48)
[2019-08-14] MEDS: ZOSYN 3.375 GM Q8H per EXTENDED INFUSION IVPB SCH ×2 (05:53)
[2019-08-14 06:37] LABS: ABS Eosinophils 0.1 10^3/ul (0-0.6); ABS Lymphocytes 0.8 10^3/ul (1.0-4.8); ABS Monocytes 0.5 10^3/ul (0-0.8); ABS Neutrophils 8.8 10^3/ul (1.5-7.7); Eosinophil % 1.1 %; Hematocrit 32 % (42-52); Hemoglobin 10.9 g/dL (14.0-18.0); Lymphocyte % 7.4 %; Mean Corpuscular HGB Conc 34 g/dL (31-36); Mean Corpuscular Hemoglobin 28 pg (27-31); Mean Corpuscular Volume 83 fL (80-94); Mean Platelet Volume 7.8 fL (7.4-10.4); Platelet Count 190 10^3/uL (150-450); Red Blood Count 3.87 10^6 /uL (4.18-5.48); Red Cell Distribution Width 20 % (10-15); White Blood Count 10.2 10^3/uL (3.5-10.8)
[2019-08-14 06:45] LABS: BUN/Creatinine Ratio 14.6 (8-20); Calcium 7.9 mg/dL (8.6-10.3); EGFR African American 89.4 (>60); EGFR Non-African American 73.9 (>60); Potassium 3.3 mmol/L (3.5-5.0)
[2019-08-14 08:40] VITALS: BP 124/66
[2019-08-14] MEDS ORDERED: Pantoprazole IV* 40 MG IV SCH (09:00)
[2019-08-14] MEDS ORDERED: Benzocaine/Menthol LOZ* 1 LOZENGE PO PRN (09:36)
== END 2019-08-14 11:00 | disposition home or self-care (01) | DRG 871 ==
LOC: ED 01:48 → MED 06:29 → OBSVTOIN 11:03
PROVIDERS: ADMIT Internal Medicine; ATTEND Internal Medicine
PROC: 0DJ08ZZ Inspection of Upper Intestinal Tract, Via Natural or Artificial Opening Endoscopic (ICD-10-PCS; principal; 2019-08-13)
DX: A41.9 Sepsis, unspecified organism (principal); J69.0 Pneumonitis due to inhalation of food and vomit; K22.10 Ulcer of esophagus without bleeding; K21.9 Gastro-esophageal reflux disease without esophagitis; K76.0 Fatty (change of) liver, not elsewhere classified; K40.90 Unilateral inguinal hernia, without obstruction or gangrene, not specified as recurrent; E87.6 Hypokalemia; F31.9 Bipolar disorder, unspecified; N20.0 Calculus of kidney; N18.2 Chronic kidney disease, stage 2 (mild); D64.9 Anemia, unspecified; E66.01 Morbid (severe) obesity due to excess calories; K44.9 Diaphragmatic hernia without obstruction or gangrene; Z91.11 Patient's noncompliance with dietary regimen; Z98.84 Bariatric surgery status; Z88.8 Allergy status to other drugs, medicaments and biological substances; Z80.1 Family history of malignant neoplasm of trachea, bronchus and lung; Z80.0 Family history of malignant neoplasm of digestive organs; Z81.2 Family history of tobacco abuse and dependence; Z90.49 Acquired absence of other specified parts of digestive tract; Z68.30 Body mass index [BMI] 30.0-30.9, adult
CPT/HCPCS: 36415; 71046; 74176; 80048; 80053; 81003; 82140; 82271; 83605; 83735; 84484; 85025; 86140; 87040; 87899; 94640; 99156; 99285; A9270-GY; G0378; J0456; J0696; J1885; J2060; J2250; J2270; J2405; J2543; J3010; J3475; J3480

== ENCOUNTER 2019-09-03 14:21 | Emergency (ER) | payer MEDICAID ==
[2019-09-03] MEDS ORDERED: Ondansetron INJ* 2 MG/ML VIAL IV ONE (14:38)
[2019-09-03] MEDS ORDERED: NS 0.9% 1000 ML** 1,000 ML IV ONE (14:38)
--- NOTE | 2019-09-03 14:49 | ED ---
Abdominal Pain/Male - HPI Summary HPI Summary: The patient is a 58 y/o M presenting to [facility] with a chief complaint of diffuse abdominal pain secondary to nausea and vomiting since last night. He reports that he has been unable to keep anything down except for water and justa bigg. He also reports that he had diarrhea for the last 5 days, and his stool is solid but a very small amount, with last bowel movement this morning. He additionally c/o fever of 102.9F. Currently, his symptoms are rated 7/10 in severity. He notes is being treated for pneumonia now and has two more days of antibiotics. PMHx: GERD, kidney stones, Guillian [place], gastric stapling, 5 hernias, cholecystectomy. Nonsmoker, no EtOH, no substance use. Medications reviewed. Allergies noted. - History of Current Complaint Chief Complaint: EDNauseaVomitDiarrh Stated Complaint: NAUSEA / VOMITTING PER EMS Time Seen by Provider: 09/03/19 14:38 Hx Obtained From: Patient Onset/Duration: Sudden Onset, Lasting Hours - since last night, Still Present Timing: Lasting Hours Severity Initially: Mild Severity Currently: Moderate Pain Intensity: 7 Pain Scale Used: 0-10 Numeric Location: Diffuse Radiates: No Character: Burning Aggravating Factor(s): Other: - vomiting Alleviating Factor(s): Nothing Associated Signs And Symptoms: Positive: Fever - 102.9F, Nausea, Vomiting - Allergies/Home Medications Allergies/Adverse Reactions: Allergies Allergy/AdvReac Type Severity Reaction Status Date / Time metoclopramide [From Reglan] Allergy Hallucinati Verified 09/03/19 14:27 ons prochlorperazine Allergy See Comment Verified 09/03/19 14:27 [From Compazine] Home Medications: Home Medications Amoxicillin/Clavulanate TAB* [Augmentin TAB 250*] 125 mg PO BID 09/03/19 [ History Confirmed 09/03/19] Ondansetron ODT TAB* [Zofran 4 MG Odt TAB*] 4 mg PO Q8HR PRN 09/03/19 [History Confirmed 09/03/19] Pantoprazole TAB * [Protonix TAB*] 40 mg PO DAILY 09/03/19 [History Confirmed ] PMH/Surg Hx/FS Hx/Imm Hx Endocrine/Hematology History: Denies: Hx Diabetes Cardiovascular History: Denies: Hx Hypercholesterolemia, Hx Hypertension Respiratory History: Reports: Hx Pneumonia Denies: Hx Asthma, Hx Chronic Obstructive Pulmonary Disease (COPD) GI History: Reports: Hx Gall Bladder Disease, Other GI Disorders - gastric stapling History: Reports: Hx Kidney Stones Sensory History: Reports: Hx Contacts or Glasses Denies: Hx Deafness, Hx Hearing Aid Opthamlomology History: Reports: Hx Contacts or Glasses Neurological History: Reports: Other Neuro Impairments/Disorders - guillian [place] Denies: Hx Dementia - Surgical History Surgical History: Yes Surgery Procedure, Year, and Place: Umbilical and inguinal hernia repair 2016. Gastric stapling 1996. gallbladder 1999. 5 skin surgeries Infectious Disease History: No Infectious Disease History: Denies: Traveled Outside the [place] in Last 30 Days - Family History Known Family History: Positive: Other - lung cancer Family History: father with lung CA - Social History Alcohol Use: None Hx Substance Use: No Substance Use Type: Reports: None Hx Tobacco Use: No Smoking Status (MU): Never Smoked Tobacco Have You Smoked in the Last Year: No Review of Systems Positive: Fever - 102.9F Positive: Abdominal Pain - diffuse, Vomiting, Diarrhea - resolved, Nausea All Other Systems Reviewed And Are Negative: Yes Physical Exam - Summary Physical Exam Summary: VITAL SIGNS: Reviewed. GENERAL: Patient is a well-developed and nourished male who is lying comfortable in the stretcher. Patient is not in any acute respiratory distress. HEAD AND FACE: No signs of trauma. No ecchymosis, hematomas or skull depressions. No sinus tenderness. EYES: PERRLA, EOMI x 2, No injected conjunctiva, no nystagmus. EARS: Hearing grossly intact. Ear canals and tympanic membranes are within normal limits. MOUTH: Oropharynx within normal limits. NECK: Supple, trachea is midline, no adenopathy, no JVD, no carotid bruit, no c- spine tenderness, neck with full ROM. CHEST: Symmetric, no tenderness at palpation. LUNGS: Clear to auscultation bilaterally. No wheezing or crackles. CVS: Regular rate and rhythm, S1 and S2 present, no murmurs or gallops appreciated. ABDOMEN: Soft, mildly diffuse tenderness. No signs of distention. No rebound, no guarding, and no masses palpated. Bowel sounds are normal. EXTREMITIES: FROM in all major joints, no edema, no cyanosis or clubbing. NEURO: Alert and oriented x 3. No acute neurological deficits. Speech is normal and follows commands. SKIN: Dry and warm. Triage Information Reviewed: Yes Vital Signs On Initial Exam: Initial Vitals Temp Pulse Resp BP Pulse Ox 99 F 73 18 112/64 97 09/03/19 14:31 09/03/19 14:31 09/03/19 14:31 09/03/19 14:31 09/03/19 14:31 Vital Signs Reviewed: Yes Procedures - Sedation Patient Received Moderate/Deep Sedation with Procedure: No Diagnostics - Vital Signs Vital Signs Temp Pulse Resp BP Pulse Ox 09/03/19 14:31 99 F 73 18 112/64 97 - Laboratory Result Diagrams: 09/03/19 14:48 09/03/19 14:48 Lab Statement: Any lab studies that have been ordered have been reviewed, and results considered in the medical decision making process. - Radiology Abdominal X-Ray Radiology Interpretation Completed By: Radiologist Summary of Radiographic Findings: Impression: Nonspecific bowel gas pattern. ED physician has reviewed this report. - CT Abd/Pel CT CT Interpretation Completed By: Radiologist Summary of CT Findings: Impression: 1. Bibasilar airspace consolidation ( increased on the right from July). This is concerning for aspiration pneumonitis/pneumonia given the presence of gastric contents in the distal esophagus. The patient is status post gastric stapling. 2. Postoperative changes are related to a periumbilical and inguinal hernia repairs. There is unchanged mild stranding in the left inguinal region. 3. Diverticulosis with no secondary signs of inflammation. 4. The patient is status post cholecystectomy. ED physician has reviewed this report. - EKG 1458 Cardiac Rate: NL - 74 bpm EKG Rhythm: Sinus Rhythm Summary of EKG Findings: EKG at 1458 reveals NSR at [address] elevations. ED physician has reviewed this report. Re-Evaluation - Re-Evaluation First Eval Re-Evaluation Time: 18:30 Change: Unchanged Comment: We discussed results and plan for discharge home. Abdominal Pain Male Course/Dx - Course Assessment/Plan: Patient is a 58 y/o M with chief complaint of persistent nausea and vomiting causing diffuse abdominal pain since last night accompanied by fever of 102.9F. Blood work without a significant abnormality except for WBCs of 11, hemoglobin of 10.2, hematocrit of 30, platelets of 296. CMP within normal limits except for potassium level of 2.9, calcium of 7.8, magnesium of 1.7, AST of 12, CRP of 18, albumin of 2.6 which his likely the cause of the low calcium. Urinalysis is negative for UTI. Potassium and magnesium given in the ED. Abdomen x-ray: No acute pathology. Therefore, I decided to do an abdominal pelvic CT. ABDOMINOPELVIC CT impression: 1. Bibasilar airspace consolidation ( increased on the right from July). This is concerning for aspiration pneumonitis/pneumonia given the presence of gastric contents in the distal esophagus. The patient is status post gastric stapling. 2. Postoperative changes are related to a periumbilical and inguinal hernia repairs. There is unchanged mild stranding in the left inguinal region. 3. Diverticulosis with no secondary signs of inflammation. 4. The patient is status post cholecystectomy Patient reports that the symptoms of the pneumonia is getting better. The patient does have any cough. The patients presumptive coming to the ED is because they did an x-ray at the primary care physicians office, and they told him that he hasnt small bowel obstruction. He will continue taking his antibiotics for pneumonia. Therefore, since there is no small bowel obstruction the patient will be discharged home with follow-up with PCP. I discussed all the findings and test results with the patient. Patient was instructed to return to the emergency room immediately if any of the symptoms return worsens. Plan of care was discussed with the patient and understands and agrees. All questions were answered at patient satisfaction. There were no further complaints or concerns. Lung exam before discharge: CTA B/L. Good air exchange. No wheezing or crackles heard. CVS: S1 and S2 present. No murmurs appreciated. Patient is alert and oriented x 3. Patient is hemodynamically stable. Patient will be discharged home with follow up PCP in the next 2-3 days. - Diagnoses Provider Diagnoses: Pneumonia Discharge ED - Sign-Out/Discharge Documenting (check all that apply): Patient Departure - Patient will be discharged home. - Discharge Plan Condition: Stable Disposition: HOME Patient Education Materials: Pneumonia (ED) Referrals: [facility] [Outside] - 3 Days Additional Instructions: Follow up with your primary care provider in 2-3 days. Return to the emergency department for any new or worsening symptoms. - Billing Disposition and Condition Condition: STABLE Disposition: Home - Attestation Statements Document Initiated by Blankibkarina: Yes Documenting Scribe: Shu Vazquez Provider For Whom Jaz is Documenting (Include Credential): Dr. Kolby Escobar MD Scribe Attestation: I, Shu Vazquez, scribed for Dr. Kolby Escobar MD on 09/03/19 at 1841. Scribe Documentation Reviewed: Yes Provider Attestation: The documentation as recorded by the Shu to accurately reflects the service I personally performed and the decisions made by me, Dr. Kolby Escobar MD Status of Scribe Document: Ready
[2019-09-03 15:01] LABS: ABS Basophils 0.1 10^3/ul (0-0.2); ABS Monocytes 0.6 10^3/ul (0-0.8); ABS Neutrophils 9.3 10^3/ul (1.5-7.7); Eosinophil % 0.2 %; Hematocrit 30 % (42-52); Hemoglobin 10.2 g/dL (14.0-18.0); Mean Corpuscular HGB Conc 34 g/dL (31-36); Mean Corpuscular Hemoglobin 28 pg (27-31); Mean Corpuscular Volume 83 fL (80-94); Mean Platelet Volume 6.7 fL (7.4-10.4); Platelet Count 296 10^3/uL (150-450); Red Blood Count 3.68 10^6 /uL (4.18-5.48); Red Cell Distribution Width 18 % (10-15)
[2019-09-03 15:25] LABS: Albumin 2.6 g/dL (3.2-5.2); Albumin/Globulin Ratio 0.9 (1-3); BUN/Creatinine Ratio 5.9 (8-20); C Reactive Protein 18.58 mg/L (<8.01); Calcium 7.8 mg/dL (8.6-10.3); EGFR African American 111.6 (>60); EGFR Non-African American 92.3 (>60); Potassium 2.9 mmol/L (3.5-5.0); Total Bilirubin 0.5 mg/dL (0.2-1.0); Total Protein 5.6 g/dL (6.4-8.9)
[2019-09-03 15:51] LABS: Magnesium 1.7 mg/dL (1.9-2.7)
--- OUTSIDE RECORDS SUMMARY | 2019-09-03 16:19 | XMS REPORT | Summary of Care ---
:1960 Author Organization [facility] Address [address] [facility] [address] [address] Care Team Providers Name Role Phone None, Trent Woods Primary Care Provider Unavailable Reason for Visit Reason Comments GI Problem New pt. self-referred for follow-up to recent Tx at [facility] ER for vomiting & diarrhea. Encounter Details Date Type Department Care Team Description 08/27/2019 Office Visit Abena Parra Gastroesophageal reflux Gastroenterology/He Kristina Garcia NP disease with esophagitis patology 1 [facility] (Primary Dx) [address] [facility] [address] [address] [address] [place] [address] [phone] Allergies Active Allergy Reactions Severity Noted Date Comments Compazine COMMUNITY OUTREACH ADVOCATE Reaction 08/18/2019 Metoclopramide COMMUNITY OUTREACH ADVOCATE Reaction 08/18/2019 documented as of this encounter (statuses as of 08/27/2019) Medications Medication Sig Dispensed Refills Start Date End Date Status amoxicillin-clavulani Take 1 Tab 20 Tab 0 08/18/2019 Active c acid (AUGMENTIN) by mouth 875-125 MG Oral Tab TWICE DAILY. ondansetron (ZOFRAN) Take 1 Tab 10 Tab 0 08/18/2019 Active 4 MG Oral TABLET by mouth DISPERSIBLE EVERY EIGHT HOURS NEEDED (nausea/vom iting). pantoprazole Take 1 Tab 30 Tab 3 08/27/2019 Active (PROTONIX) 40 MG Oral by mouth Tab ECIndications: DAILY. Gastroesophageal reflux disease with esophagitis azithromycin Take 1 Tab 5 Tab 0 08/18/2019 Discontinued (ZITHROMAX) 250 MG by mouth 9 Oral Tab DAILY. Take 2 pills on the first day and 1 pill each day for 4 days pantoprazole Take 1 Tab 30 Tab 3 08/27/2019 Discontinued (PROTONIX) 40 MG Oral by mouth 9 (Reorder) Tab EC DAILY. documented as of this encounter (statuses as of 08/27/2019) Active Problems No known active problemsdocumented as of this encounter (statuses as of 2018) Social History Tobacco Use Types Packs/Day Years Used Date Never Smoker 0 Smokeless Tobacco: Never Used Sex Assigned at Date Recorded Not on file Job Start Date Occupation Industry Not on file Not on file Not on file Travel History Travel Start Travel End No recent travel history available. documented as of this encounter Last Filed Vital Signs Vital Sign Reading Time Taken Comments Blood Pressure 108/78 08/27/2019 7:46 AM EDT Pulse 72 08/27/2019 7:46 AM EDT Temperature 36.5 08/27/2019 7:46 AM EDT C (97.7 F) Respiratory Rate - - Oxygen Saturation - - Inhaled Oxygen Concentration - - Weight 85.3 kg (188 lb) 08/27/2019 7:46 AM EDT Height 174 cm (5' 8.5") 08/27/2019 7:46 AM EDT Body Mass Index 28.17 08/27/2019 7:46 AM EDT documented in this encounter Patient Instructions Patient InstructionsKristina Parra NP - 08/27/2019 7:40 AM EDT1. Start Pantoprazole once daily on an empty stomach preferably before dinnertime or at bedtime 2. Continue to avoid acidic, spicy and high fat foods 3. See information below 4. Follow up in 1 month Certain foods may worsen symptoms such as stomach pain, bloating, heartburn, or indigestion. Foods to limit or avoid: You may need to avoid acidic, spicy, or high-fat foods. Not all foods affect everyone the same way. You will need to learn which foods worsen your symptoms and limit those foods. The following are some foods that may worsen ulcer or gastritis symptoms: Beverages: Whole milk and chocolate milk Hot cocoa and cola Any beverage with caffeine Regular and decaffeinated coffee Peppermint and spearmint tea Green and black tea, with or without caffeine [place] and grapefruit juices Drinks that contain alcohol Spices and seasonings: Black and red pepper [place] powder Mustard seed and nutmeg Other foods: Dairy foods made from whole milk or cream Chocolate Spicy or strongly flavored cheeses, such as jalapeno or black pepper Highly seasoned, high-fat meats, such as sausage, salami, tolentino, ham, and cold cuts Hot chiles and peppers Tomato products, such as tomato paste, tomato sauce, or tomato juice Foods to include: Eat a variety of healthy foods from all the food groups. Eat fruits, vegetables, whole grains, and fat-free or low-fat dairy foods. Whole grains include whole-wheat breads, cereals, pasta, and brown rice. Choose lean meats, poultry (chicken and turkey), fish, beans, eggs, and nuts. A healthy meal plan is low in unhealthy fats, salt, and added sugar. Healthy fats include olive oil and canola oil. Ask your dietitian for more information about a healthy diet. Other helpful guidelines: Do not eat right before bedtime. Stop eating at least 2 hours before bedtime. Eat small, frequent meals. Your stomach may tolerate small, frequent meals better than large meals. 2016 [employer]. Information is for End User's use only and may not be sold, redistributed or otherwise used for commercial purposes. All illustrations and images included in CareNotes are the copyrighted property of [employer]. or [employer]. The above information is an family service aide only. It is not intended as medical advice for individual conditions or treatments. Talk to your doctor, nurse or pharmacist before following any medical regimen to see if it is safe and effective for you. documented in this encounter Progress Notes Kristina Parra NP - 08/27/2019 7:40 AM EDT PATIENT: David Beck : 1960 DATE OF SERVICE: 08/27/2019 REFERRING PRACTITIONER: Jaisno Canales PRIMARY CARE PROVIDER: None, Trent Woods CHIEF COMPLAINT: Chief Complaint Patient presents with GI Problem New pt. self-referred for follow-up to recent Tx at [facility] ER for vomiting & diarrhea. Subjective HISTORY OF PRESENT ILLNESS: David Beck is a 58-y.o. male who presents for a consultation. He reports general epigastric discomfort and nausea. Onset was problem is longstanding, this episode began several weeks ago. He has a past history of gastric bypass surgery. Symptoms have been intermittent. He also reports intermittent loose stools, 1-3 times daily, attributes to diet. Aggravating cause(s): none Alleviated by: none Associated signs and symptoms: none Patient denies anorexia, arthralgias, belching, bright red blood per rectum, chills, dysuria, fever,flatus, frequency, general epigastric discomfort, headache, hematochezia, hematuria, melena, myalgias, pneumaturia, sweats, vomiting, symptoms of obstruction, symptoms of anemia and weight loss. Previous visits for these symptoms: yes, last seen by emergency department at [place] 08/12/2019. Evaluation to date: 08/13/2019 EGD which was positive for reflux esophagitis. Treatment to date: Zofran prn The referring provider's recommended test(s) and treatment(s) to date have been reviewed. No past medical history on file. No past surgical history on file. No family history on file. Current Outpatient Medications Medication Sig amoxicillin-clavulanic acid (AUGMENTIN) 875-125 MG Oral Tab Take 1 Tab by mouth TWICE DAILY. ondansetron (ZOFRAN) 4 MG Oral TABLET DISPERSIBLE Take 1 Tab by mouth EVERY EIGHT HOURS NEEDED (nausea/vomiting). pantoprazole (PROTONIX) 40 MG Oral Tab EC Take 1 Tab by mouth DAILY. No current facility-administered medications for this visit. Allergies Allergen Reactions Compazine COMMUNITY OUTREACH ADVOCATE Reaction Reglan [Metoclopramide] COMMUNITY OUTREACH ADVOCATE Reaction Social History Socioeconomic History Marital status: Single Spouse name: Not on file Number of children: Not on file Years of education: Not on file Highest education level: Not on file Occupational History Not on file Social Needs Financial resource strain: Not on file Food insecurity: Worry: Not on file Inability: Not on file Transportation needs: Medical: Not on file Non-medical: Not on file Tobacco Use Smoking status: Never Smoker Smokeless tobacco: Never Used Substance and Sexual Activity Alcohol use: Not on file Drug use: Not on file Sexual activity: Not on file Lifestyle Physical activity: Days per week: Not on file Minutes per session: Not on file Stress: Not on file Relationships Social connections: Talks on phone: Not on file Gets together: Not on file Attends rastafari service: Not on file Active member of club or organization: Not on file Attends meetings of clubs or organizations: Not on file Relationship status: Not on file Intimate partner violence: Fear of current or ex partner: Not on file Emotionally abused: Not on file Physically abused: Not on file Forced sexual activity: Not on file Other Topics Concern Not on file Social History Narrative Not on file REVIEW OF SYSTEMS: All remaining review of systems was negative except for as noted in the history of present illness/subjective. Objective PHYSICAL EXAMINATION: VITALS: BP 108/78 | Pulse 72 | Temp 97.7 F (36.5 C) | Ht 5' 8.5" ( 1.74 m) | Wt 188 lb (85.3 kg) | BMI 28.17 kg/m Body mass index is 28.17 kg/m. GENERAL: alert, oriented, no acute distress. HEENT: No scleral icterus, MMM Psych: Affect normal Neck: no lymphadenopathy LUNGS: clear to auscultation bilaterally. HEART: regular rhythm, no murmurs, no gallops, no rubs. ABDOMEN: general exam: soft, non-tender, non-distended, without masses or organomegaly, normal active bowel sounds, Roberson's sign negative. Extrmities: no edema Skin: clear Neuro: gait normal, a&o x 3 RECTAL: exam deferred. IMPRESSION: ICD-9-CM ICD-10-CM 1. Gastroesophageal reflux disease with esophagitis 530.11 K21.0 pantoprazole ( PROTONIX) 40 MG Oral Tab EC Plan PLAN: Patient Instructions 1. Start Pantoprazole once daily on an empty stomach preferably before dinnertime or at bedtime 2. Continue to avoid acidic, spicy and high fat foods 3. See information below 4. Follow up in 1 month Certain foods may worsen symptoms such as stomach pain, bloating, heartburn, or indigestion. Foods to limit or avoid: You may need to avoid acidic, spicy, or high-fat foods. Not all foods affect everyone the same way. You will need to learn which foods worsen your symptoms and limit those foods. The following are some foods that may worsen ulcer or gastritis symptoms: Beverages: Whole milk and chocolate milk Hot cocoa and cola Any beverage with caffeine Regular and decaffeinated coffee Peppermint and spearmint tea Green and black tea, with or without caffeine [place] and grapefruit juices Drinks that contain alcohol Spices and seasonings: Black and red pepper [place] powder Mustard seed and nutmeg Other foods: Dairy foods made from whole milk or cream Chocolate Spicy or strongly flavored cheeses, such as jalapeno or black pepper Highly seasoned, high-fat meats, such as sausage, salami, tolentino, ham, and cold cuts Hot chiles and peppers Tomato products, such as tomato paste, tomato sauce, or tomato juice Foods to include: Eat a variety of healthy foods from all the food groups. Eat fruits, vegetables, whole grains, and fat-free or low-fat dairy foods. Whole grains include whole-wheat breads, cereals, pasta, and brown rice. Choose lean meats, poultry (chicken and turkey), fish, beans, eggs, and nuts. A healthy meal plan is low in unhealthy fats, salt, and added sugar. Healthy fats include olive oil and canola oil. Ask your dietitian for more information about a healthy diet. Other helpful guidelines: Do not eat right before bedtime. Stop eating at least 2 hours before bedtime. Eat small, frequent meals. Your stomach may tolerate small, frequent meals better than large meals. 2016 [employer]. Information is for End User's use only and may not be sold, redistributed or otherwise used for commercial purposes. All illustrations and images included in CareNotes are the copyrighted property of [employer], [employer]. or [employer]. The above information is an family service aide only. It is not intended as medical advice for individual conditions or treatments. Talk to your doctor, nurse or pharmacist before following any medical regimen to see if it is safe and effective for you. Author: Kristina Parra NP 08/27/2019 09:55 documented in this encounter Plan of Treatment Date Type Specialty Care Team Description 09/13/2019 Office Visit Family [facility] Ernestina Damon MD [address] [place] [address] [phone] 09/30/2019 Office Visit Gastroenterology Kristina Parra, [employer] [address] [address] [place] [address] [phone] Health Maintenance Due Date Last Done Comments DEPRESSION SCREENING 1971 HIV SCREENING 1974 HEPATITIS C SCREENING 1999 LIPID DISORDER SCREENING 03/24/2009 03/24/2004 COLONOSCOPY SCREENING 2009 ZOSTER IMMUNIZATION SERIES (1 of 2009 2) INFLUENZA VACCINE (#1) 2019 DIABETES SCREENING 08/18/2020 08/18/2019 HPV IMMUNIZATION SERIES Aged Out No longer eligible based on patient's age to complete this topic MENINGOCOCCAL VACCINE IMM Aged Out No longer eligible based on patient's age to complete this topic PNEUMOCOCCAL 0-64 YRS Aged Out No longer eligible based on patient's age to complete this topic documented as of this encounter Results Not on filedocumented in this encounter Visit Diagnoses Diagnosis Gastroesophageal reflux disease with esophagitis - Primary documented in this encounter Insurance Payer Benefit Plan / Subscriber ID Effective Dates Phone Address Type Group [place] xxxxxxxx 2019-Present [place] documented as of this encounter
--- OUTSIDE RECORDS SUMMARY | 2019-09-03 16:19 | XMS REPORT | Summary of Care ---
:1960 Author Organization [facility] Address [address] [facility] [place] [address] Care Team Providers Name Role Phone None, [place] Primary Care Provider Unavailable Reason for Visit Reason Comments Emesis x 5 days. Seen in ER [facility] Follow Up Pneumonia Encounter Details Date Type Department Care Team Description 09/03/2019 Office Visit [place] Smith Chavez MD Vomiting and diarrhea (Primary Dx); Practice [address] Pneumonia due to organism; [address] [place] [address] [place]ever, [place] [address] [phone] Allergies Active Allergy Reactions Severity Noted Date Comments Compazine SCIENCE TECHNICIAN Reaction 08/18/2019 Metoclopramide SCIENCE TECHNICIAN Reaction 08/18/2019 documented as of this encounter (statuses as of 09/03/2019) Medications Medication Sig Dispensed Refills Start Date End Date Status amoxicillin-clavulani Take 1 Tab 20 Tab 0 08/18/2019 Active c acid (AUGMENTIN) by mouth 875-125 MG Oral Tab TWICE DAILY. pantoprazole Take 1 Tab 30 Tab 3 08/27/2019 Active (PROTONIX) 40 MG Oral by mouth Tab ECIndications: DAILY. Gastroesophageal reflux disease with esophagitis acetaminophen Take 3 Tabs 3 Tab 0 09/03/2019 Active (TYLENOL) 325 MG Oral by mouth 9 TabIndications: NOW for 1 Fever, unspecified dose. fever cause ondansetron (ZOFRAN) Take 1 Tab 10 Tab 0 08/18/2019 Discontinued 4 MG Oral TABLET by mouth 9 (Therapy DISPERSIBLE EVERY EIGHT Completed) HOURS NEEDED (nausea/vom iting). Hospital, Clinic, or Other Ordered Dose Route Frequency Start Date End Date Status Facility Administered Medication normal saline IVIndications: IV CONTINUOUS 09/03/2019 Active Vomiting and diarrhea documented as of this encounter (statuses as of 09/03/2019) Active Problems No known active problemsdocumented as [...] Sign Reading Time Taken Comments Blood Pressure 118/82 09/03/2019 10:35 AM EDT Pulse 94 09/03/2019 10:35 AM EDT Temperature 39.1 09/03/2019 10:35 AM C (102.4 EDT F) Respiratory Rate - - Oxygen Saturation 96% 09/03/2019 10:35 AM EDT Inhaled Oxygen Concentration - - Weight 80.3 kg (177 lb) 09/03/2019 10:35 AM EDT Height 172.7 cm (5' 8") 09/03/2019 10:35 AM EDT Body Mass Index 26.91 09/03/2019 10:35 AM EDT documented in this encounter Progress Notes Smith Benedict MD - 09/03/2019 10:15 AM EDT PATIENT: David Beck : 1960 DATE OF SERVICE: 09/03/2019 CHIEF COMPLAINT: Chief Complaint Patient presents with Emesis x 5 days. Seen in [facility] Follow Up Pneumonia Subjective HISTORY OF PRESENT ILLNESS: David Beck is a 58-y.o. male. 58 y/o with recent ED visit and ongoing antibiotics for bilateral R>L pneumonia-presents today with fever, ongoing mild cough and a 2-day history of diarrhea followed by a 3-day history of intractable vomiting/spitting up. States unable to keep anything down--including several incidences of waking up with vomit on his night clothes. States he has had 4 separate abdominal surgeries including a hiatal hernia, recurrent inguinal hernias and a stomach stapling several years ago. He tried antinausea medication which help in the short term but not group home. History reviewed. No pertinent past medical history. History reviewed. No pertinent family history. Current Outpatient Medications Medication Sig acetaminophen (TYLENOL) 325 MG Oral Tab Take 3 Tabs by mouth NOW for 1 dose. amoxicillin-clavulanic acid (AUGMENTIN) 875-125 MG Oral Tab Take 1 Tab by mouth TWICE DAILY. pantoprazole (PROTONIX) 40 MG Oral Tab EC Take 1 Tab by mouth DAILY. Current Facility-Administered Medications Medication normal saline IV Allergies Allergen Reactions Compazine SCIENCE TECHNICIAN Reaction Reglan [Metoclopramide] SCIENCE TECHNICIAN Reaction Social History Socioeconomic History Marital status: [...] file Gets together: Not on file Attends gnosticist service: Not on file Active member of [...] Narrative Not on file REVIEW OF SYSTEMS: Review of Systems Constitutional: Positive for fever and malaise/fatigue. Negative for chills and weight loss. HENT: Negative for congestion, ear discharge, ear pain, sinus pain and sore throat. Eyes: Negative for double vision. Respiratory: Positive for cough, hemoptysis and shortness of breath. Gastrointestinal: Positive for abdominal pain, diarrhea, nausea and vomiting. Negative for blood in stool and melena (although patient notes his stool have been darker than usual lately.). Genitourinary: Negative for dysuria, frequency and urgency. Musculoskeletal: Positive for myalgias. Negative for falls and neck pain. Skin: Negative for itching and rash. Neurological: Positive for dizziness and weakness. Negative for tremors, loss of consciousness and headaches. Psychiatric/Behavioral: The patient does not have insomnia. Objective PHYSICAL EXAM: VITALS: BP 118/82 | Pulse 94 | Temp (!) 102.4 F (39.1 C) | Ht 5' 8" (1.727 m) | Wt 177 lb (80.3 kg) | SpO2 96% | BMI 26.91 kg/m Body mass index is 26.91 kg/m. Physical Exam Constitutional: General: He is in acute distress. Appearance: Normal appearance. He is ill-appearing. He is not toxic- appearing or diaphoretic. HENT: Head: Normocephalic and atraumatic. Right Ear: Tympanic membrane and ear canal normal. Left Ear: Tympanic membrane and ear canal normal. Nose: Nose normal. No congestion or rhinorrhea. Mouth/Throat: Mouth: Mucous membranes are dry. Pharynx: Oropharynx is clear. No oropharyngeal exudate or posterior oropharyngeal erythema. Eyes: General: Right eye: No discharge. Left eye: No discharge. Extraocular Movements: Extraocular movements intact. Pupils: Pupils are equal, round, and reactive to light. Neck: Musculoskeletal: No neck rigidity or muscular tenderness. Cardiovascular: Rate and Rhythm: Regular rhythm. Tachycardia present. Pulses: Normal pulses. Heart sounds: Normal heart sounds. No murmur. No friction rub. No gallop. Pulmonary: Effort: Pulmonary effort is normal. Breath sounds: Normal breath sounds. No wheezing, rhonchi or rales. Abdominal: General: Abdomen is flat. There is no distension. Palpations: There is no mass. Tenderness: There is tenderness. There is guarding. There is no rebound. Hernia: No hernia is present. Musculoskeletal: General: No swelling or tenderness. Lymphadenopathy: Cervical: No cervical adenopathy. Skin: General: Skin is warm and dry. Findings: No rash. Neurological: General: No focal deficit present. Mental Status: He is alert and oriented to person, place, and time. Psychiatric: Mood and Affect: Mood normal. Behavior: Behavior normal. Thought Content: Thought content normal. ASSESSMENT / IMPRESSION: ICD-9-CM ICD-10-CM 1. Vomiting and diarrhea 787.03 R11.10 CBC WITH DIFFERENTIAL 787.91 R19.7 BASIC METABOLIC PANEL XR CHEST 2 VIEW PA AND LATERAL (STANDARD) URINALYSIS (LAB) WITH REFLEX CULTURE normal saline IV BASIC METABOLIC PANEL CBC WITH DIFFERENTIAL CANCELED: XR ABDOMEN SERIES W PA CHEST (STANDARD) 2. Fever, unspecified fever cause 780.60 R50.9 CBC WITH DIFFERENTIAL XR CHEST 2 VIEW PA AND LATERAL (STANDARD) URINALYSIS (LAB) WITH REFLEX CULTURE CBC WITH DIFFERENTIAL acetaminophen (TYLENOL) 325 MG Oral Tab CANCELED: XR ABDOMEN SERIES W PA CHEST (STANDARD) 1. Pneumonia due to organism CXR reveals persistent R>L infiltrate--can't tell if this is residual but improving or residual and untreated. His pulmonary exam is otherwise unremarkable so I tend to lean towards a GI cause for his current illness symptoms but cannot rule out persistent pnuemonia. Patient is unable to tolerate PO fluids despite 2 Liters of rehydration and zofran. Will need to call ambulance to transfer where additional labs can be completed. 2. Vomiting and diarrhea Extensive history of abdominal surgery but AAS does not show A/F levels. Still unable to tolerate POso will transfer. - CBC WITH DIFFERENTIAL; Future - BASIC METABOLIC PANEL; Future - XR CHEST 2 VIEW PA AND LATERAL (STANDARD); Future - URINALYSIS (LAB) WITH REFLEX CULTURE; Future - normal saline IV - BASIC METABOLIC PANEL - CBC WITH DIFFERENTIAL 3. Fever, unspecified fever cause Given tylenol with reduction in temp but still febrile. - CBC WITH DIFFERENTIAL; Future - XR CHEST 2 VIEW PA AND LATERAL (STANDARD); Future - URINALYSIS (LAB) WITH REFLEX CULTURE; Future - CBC WITH DIFFERENTIAL - acetaminophen (TYLENOL) 325 MG Oral Tab; Take 3 Tabs by mouth NOW for 1 dose. Dispense: 3 Tab; Refill: 0 Plan As above. Author: Smith Benedict MD 09/03/2019 13:29 documented in this encounter Plan of Treatment Date Type Specialty Care Team Description 09/03/2019 Ancillary Procedure Radiology Vomiting and diarrhea; Fever, unspecified fever cause 09/03/2019 Ancillary Procedure Radiology Vomiting and diarrhea; Fever, unspecified fever cause 09/19/2019 Office Visit Pulmonary Keaton Gordon MD [address] [address] [phone] 09/30/2019 Office Visit Gastroenterology Kristina Parra, [facility] [address] [place] [address] [phone] Name Type Priority Associated Diagnoses Date/Time CBC WITH DIFFERENTIAL Lab Routine Vomiting and diarrhea 09/03/2019 12:05 PM EDT Fever, unspecified fever cause BASIC METABOLIC PANEL Lab Routine Vomiting and diarrhea 09/03/2019 12:05 PM EDT Name Type Priority Associated Diagnoses Order Schedule CBC WITH DIFFERENTIAL Lab Routine Vomiting and diarrhea Expected: 09/03/2019 Fever, unspecified fever (Approximate), Expires: cause 09/03/2020 BASIC METABOLIC PANEL Lab Routine Vomiting and diarrhea Expected: 2018 (Approximate), Expires: 09/03/2020 Health Maintenance Due Date Last Done Comments [...] topic documented as of this encounter Results XR CHEST 2 VIEW PA AND LATERAL (STANDARD) (09/03/2019 11:44 AM EDT) Specimen Impressions Performed At 1. Redemonstration of multifocal pneumonia, only minimally improved radiographically when compared to the prior exam. 2. Nonobstructive bowel gas pattern. No discrete abnormality. Urgency: Routine. This is a routine medical imaging report. Recommendation: No specific imaging recommendation. Signed by Michael Herrera on 09/03/2019 1:36 PM Narrative Performed At Procedure(s): XR ABDOMEN SUPINE AND ERECT, XR CHEST 2 VIEW PA AND LATERAL (STANDARD) Date of service: 09/03/2019 11:22 AM Provided clinical information: 58 years, Male, "58 y/o on Augmentin for pneumonia x 10 days presents with fever and 3 days diahrrea followed by 3 days of continuous nausea and vomiting. Please assess for obstruction signs." Procedure: Standard protocol. Comparison: Chest radiograph and CT abdomen/pelvis dated 08/18/2019 Observations: CHEST: PA radiograph of the chest was obtained. There remains multifocal alveolar and reticulonodular opacities in the right mid and lower lung and left lower lung, only minimally improved radiographically when compared to the prior exam, again consistent with multifocal pneumonia. There is no pulmonary vascular congestion. There is no pneumothorax or pleural effusion. The cardiomediastinal silhouette is stable. The included osseous structures are unchanged. ABDOMEN: AP supine and upright radiographs of the abdomen were obtained. Surgical clips are seen in the left upper abdomen. The bowel gas pattern is nonobstructive. Mild amount of right colonic stool. There are no findings in the abdomen to suggest organomegaly or significant mass effect. No abnormal calcifications are seen in the abdomen or pelvis. No evidence of pneumoperitoneum. Osseous structures are unremarkable. Procedure Note Interface, Rad Results - 09/03/2019 1:38 PM EDT Procedure(s): XR ABDOMEN SUPINE AND ERECT, XR CHEST 2 VIEW PA AND LATERAL (STANDARD) Date of service: 09/03/2019 11:22 AM Provided clinical information: 58 years, Male, "58 y/o on Augmentin for pneumonia x 10 days presents with fever and 3 days diahrrea followed by 3 days of continuous nausea and vomiting. Please assess for obstruction signs." Procedure: Standard protocol. Comparison: Chest radiograph and CT abdomen/pelvis dated 08/18/2019 Observations: CHEST: PA radiograph of the chest was obtained. There remains multifocal alveolar and reticulonodular opacities in the right mid and lower lung and left lower lung, only minimally improved radiographically when compared to the prior exam, again consistent with multifocal pneumonia. There is no pulmonary vascular congestion. There is no pneumothorax or pleural effusion. The cardiomediastinal silhouette is stable. The included osseous structures are unchanged. ABDOMEN: AP supine and upright radiographs of the abdomen were obtained. Surgical clips are seen in the left upper abdomen. The bowel gas pattern is nonobstructive. Mild amount of right colonic stool. There are no findings in the abdomen to suggest organomegaly or significant mass effect. No abnormal calcifications are seen in the abdomen or pelvis. No evidence of pneumoperitoneum. Osseous structures are unremarkable. IMPRESSION 1. Redemonstration of multifocal pneumonia, only minimally improved radiographically when compared to the prior exam. 2. Nonobstructive bowel gas pattern. No discrete abnormality. Urgency: Routine. This is a routine medical imaging report. Recommendation: No specific imaging recommendation. Signed by Michael Herrera on 09/03/2019 1:36 PM documented in this encounter Visit Diagnoses Diagnosis Vomiting and diarrhea - Primary Vomiting alone Pneumonia due to organism Pneumonia due to other specified organism Fever, unspecified fever cause documented in this encounter Insurance Payer Benefit Plan / Subscriber ID Effective Dates Phone Address Type Group [place] xxxxxxxx 2019-Present [place] documented as of this encounter
--- OUTSIDE RECORDS SUMMARY | 2019-09-03 16:19 | XMS REPORT | Summary of Care ---
:1960 Author Organization [facility] Address [address] [address] Care Team Providers Name Role Phone Kayli Her MD Primary Care Provider Reason for Visit Reason Comments Abdominal Pain Breathing Problem Encounter Details Date Type Department Care Team Description 08/18/2019 Emergency [facility] Emergency Department Nolan Alvarez DO Emergency [address] [place] [id number] [place] [address] Allergies Active Allergy Reactions Severity Noted Date Comments Compazine FREIGHT BOOKER Reaction 08/18/2019 Metoclopramide FREIGHT BOOKER Reaction 08/18/2019 documented as of this encounter (statuses as of 08/19/2019) Medications Medication Sig Dispensed Refills Start Date End Date Status amoxicillin-clavulanic Take 1 Tab by 20 Tab 0 08/18/2019 Active acid (AUGMENTIN) mouth TWICE 875-125 MG Oral Tab DAILY. azithromycin Take 1 Tab by 5 Tab 0 08/18/2019 Active (ZITHROMAX) 250 MG Oral mouth DAILY. Take Tab 2 pills on the first day and 1 pill each day for 4 days ondansetron (ZOFRAN) 4 Take 1 Tab by 10 Tab 0 08/18/2019 Active MG Oral TABLET mouth EVERY EIGHT DISPERSIBLE HOURS NEEDED (nausea/vomiting) . documented as of this encounter (statuses as of 08/19/2019) Active Problems No known active problemsdocumented as of this encounter (statuses as of 2018) Social History Tobacco Use Types Packs/Day Years Used Date Never Assessed Sex Assigned at Date Recorded Not on file Job Start Date Occupation Industry Not on file Not on file Not on file Travel History Travel Start Travel End No recent travel history available. documented as of this encounter Last Filed Vital Signs Vital Sign Reading Time Taken Comments Blood Pressure 145/83 08/18/2019 11:18 PM EDT Pulse 80 08/18/2019 11:18 PM EDT Temperature 36.1 08/18/2019 6:28 PM EDT C (96.9 F) Respiratory Rate 17 08/18/2019 11:18 PM EDT Oxygen Saturation 96% 08/18/2019 11:18 PM EDT Inhaled Oxygen Concentration - - Weight - - Height - - Body Mass Index - - documented in this encounter Discharge Instructions Nolan Desai, - 08/18/2019Please make sure to follow up with Gastroenterology for your GERD. Please schedule an appointment with ENT for your nose bleeds. Please see your primary care doctor within one week. Continue to take the two different antibiotics for your pneumonia. The Augmentin is one tap twice a day for 10 days. The azithromycin is 2 tabs on day one and 1 tab daily for 4 days. Should your symptoms worsen or persist, please return to the emergency department. AttachmentsThe following attachments cannot be sent through Care Everywhere.COMMUNITY-ACQUIRED PNEUMONIA (AFTERCARE(R) INSTRUCTIONS(ER/ED)) ( THAI)documented in this encounter Plan of Treatment Date Type Specialty Care Team Description 08/27/2019 Office Visit Gastroenterology Kristina Parra, MER [address] [place] [address] [phone] 09/13/2019 Office Visit Family Practice Ernestina Damon MD [address] [place] [address] [phone] Name Type Priority Associated Diagnoses Date/Time INPT/ED 12 LEAD EKG EKG STAT 08/18/2019 7:42 PM EDT Health Maintenance Due Date Last Done Comments DEPRESSION SCREENING 1971 HIV SCREENING 1974 HEPATITIS C SCREENING 1999 COLONOSCOPY SCREENING 2009 ZOSTER IMMUNIZATION SERIES (1 of 2) 2009 INFLUENZA VACCINE (#1) 2019 HPV IMMUNIZATION SERIES Aged Out No longer eligible based on patient's age to complete this topic MENINGOCOCCAL VACCINE IMM Aged Out No longer eligible based on patient's age to complete this topic PNEUMOCOCCAL 0-64 YRS Aged Out No longer eligible based on patient's age to complete this topic documented as of this encounter Procedures Procedure Name Priority Date/Time Associated Comments Diagnosis XR CHEST 2 VIEW PA AND STAT 08/18/2019 10:26 Results for this LATERAL (STANDARD) PM EDT procedure are in the results section. CT ABDOMEN PELVIS WITH STAT 08/18/2019 9:05 Results for this IV CONTRAST PM EDT procedure are in the results section. TROPONIN STAT 08/18/2019 7:48 Results for this PM EDT procedure are in the results section. MAGNESIUM LEVEL STAT 08/18/2019 7:48 Results for this PM EDT procedure are in the results section. LIPASE STAT 08/18/2019 7:48 Results for this PM EDT procedure are in the results section. COMPREHENSIVE METABOLIC STAT 08/18/2019 7:48 Results for this PANEL PM EDT procedure are in the results section. PROTHROMBIN TIME STAT 08/18/2019 7:48 Results for this PM EDT procedure are in the results section. CBC NO DIFFERENTIAL STAT 08/18/2019 7:48 Results for this PM EDT procedure are in the results section. PARTIAL THROMBOPLASTIN STAT 08/18/2019 7:48 Results for this TIME PM EDT procedure are in the results section. IN PT/ED 12 LEAD EKG STAT 08/18/2019 7:42 PM EDT documented in this encounter Results XR CHEST 2 VIEW PA AND LATERAL (STANDARD) (08/18/2019 10:26 PM EDT) Specimen Impressions Performed At There are multifocal airspace consolidations consistent with a multifocal pneumonia. Radiographic follow-up to resolution is requested. Signed by Jaison Canales MD on 08/18/2019 11:44 PM Narrative Performed At Procedure(s): XR CHEST 2 VIEW PA AND LATERAL (STANDARD) Date of service: 08/18/2019 10:02 PM History: 58 years, Male, "chest pain" Technique: PA and lateral views of the chest were acquired. Procedure Note Interface, Rad Results - 08/18/2019 11:46 PM EDT Procedure(s): XR CHEST 2 VIEW PA AND LATERAL (STANDARD) Date of service: 08/18/2019 10:02 PM History: 58 years, Male, "chest pain" Technique: PA and lateral views of the chest were acquired. IMPRESSION There are multifocal airspace consolidations consistent with a multifocal pneumonia. Radiographic follow-up to resolution is requested. Signed by Jaison Canales MD on 08/18/2019 11:[address] ABDOMEN PELVIS WITH IV CONTRAST (08/18/2019 9:05 PM EDT) Specimen Impressions Performed At Impression: CT findings are consistent with a multifocal pneumonia. Radiographic posttreatment follow-up to resolution is suggested. There is apparent circumferential thickening of the distal esophagus. Nonemergent endoscopy or an esophagram could be acquired for further assessment. Signed by Jaison Canales MD on 08/18/2019 9:54 PM Narrative Performed At Procedure(s): CT ABDOMEN PELVIS WITH IV CONTRAST Date of service: 08/18/2019 8:51 PM Provided clinical information: 58 years, Male, "hx of SBO, vomiting, abdominal pain" Comparison: All prior relevant studies. Technique: Axial computed tomography images of the abdomen and pelvis were obtained from the lung bases to the pubic symphysis. Coronal and sagittal reformatted images were obtained and reviewed. Contrast: Omnipaque was administered intravenously. Findings: Lung Bases: There are patchy bibasilar airspace consolidations superimposed by micronodules and interstitial infiltrates. soft tissues: The patient is post left inguinal hernia repair with plug. The patient is post ventral hernia repair with mesh. Bones: No acute osseous findings. Vessels: There is mild calcified plaque throughout the aorta and aorto femoral vessels. Liver: The liver is within normal limits. Biliary system: There is no significant intrahepatic or extrahepatic ductal dilatation. Spleen: The spleen is within normal limits. Pancreas: There is no pancreatic dilatation or a contour deforming mass. Adrenal glands: The adrenal glands are within normal limits. Genitourinary system: There is no hydronephrosis or obstructing nephrolithiasis. Bowel: There is no colonic obstruction, free intraperitoneal air or pneumatosis. The circumferential thickening of the distal esophagus with reflux of gastric contents into the lower esophagus. There are scattered diverticula throughout the rectosigmoid colon without CT findings of acute diverticulitis. The colon is fluid-filled representing incipient diarrhea. Pelvis: There is moderate prostatomegaly. Procedure Note Interface, Rad Results - 08/18/2019 9:56 PM EDT Procedure(s): CT ABDOMEN PELVIS WITH IV CONTRAST Date of service: 08/18/2019 8:51 PM Provided clinical information: 58 years, Male, "hx of SBO, vomiting, abdominal pain" Comparison: All prior relevant studies. Technique: Axial computed tomography images of the abdomen and pelvis were obtained from the lung bases to the pubic symphysis. Coronal and sagittal reformatted images were obtained and reviewed. Contrast: Omnipaque was administered intravenously. Findings: Lung Bases: There are patchy bibasilar airspace consolidations superimposed by micronodules and interstitial infiltrates. soft tissues: The patient is post left inguinal hernia repair with plug. The patient is post ventral hernia repair with mesh. Bones: No acute osseous findings. Vessels: There is mild calcified plaque throughout the aorta and aorto femoral vessels. Liver: The liver is within normal limits. Biliary system: There is no significant intrahepatic or extrahepatic ductal dilatation. Spleen: The spleen is within normal limits. Pancreas: There is no pancreatic dilatation or a contour deforming mass. Adrenal glands: The adrenal glands are within normal limits. Genitourinary system: There is no hydronephrosis or obstructing nephrolithiasis. Bowel: There is no colonic obstruction, free intraperitoneal air or pneumatosis. The circumferential thickening of the distal esophagus with reflux of gastric contents into the lower esophagus. There are scattered diverticula throughout the rectosigmoid colon without CT findings of acute diverticulitis. The colon is fluid-filled representing incipient diarrhea. Pelvis: There is moderate prostatomegaly. IMPRESSION Impression: CT findings are consistent with a multifocal pneumonia. Radiographic posttreatment follow-up to resolution is suggested. There is apparent circumferential thickening of the distal esophagus. Nonemergent endoscopy or an esophagram could be acquired for further assessment. Signed by Jaison Canales MD on 08/18/2019 9:54 PM LIPASE (08/18/2019 7:48 PM EDT) Lipase 181 23 - 300 U/L [facility] Specimen Blood Performing Organization Address [facility] Phone [facility] [address] [place] [address] PARTIAL THROMBOPLASTIN TIME (08/18/2019 7:48 PM EDT) PTT 30.5 22.8 - 34.7 SEC [facility] Specimen Blood Performing Organization Address [facility] Phone Number [facility] [address] [place] [address] [phone] PROTHROMBIN TIME (08/18/2019 7:48 PM EDT) INR 1.29 (H) 0.79 - 1.15 [facility] Comment: Ratio [facility] INR Therapeutic Range: 2.0 - 3.5 Protime 15.8 (H) 11.4 - 14.3 sec [facility] Specimen Blood Performing Organization Address [facility] Phone Number [facility] [address] [place] [address] CBC NO DIFFERENTIAL (08/18/2019 7:48 PM EDT) WBC Count 6.69Comment: 4.23 - 9.07 [facility] Methodology was K/uL [facility] changed 11/29/2018. Please note updated reference range and units. RBC Count 3.99 (L) 4.30 - 5.89 [facility] M/UL [facility] Hemoglobin 10.7 (L) 13.7 - 17.5 [facility] g/dL [facility] Hematocrit 33.0 (L) 40.1 - 51.0 % [facility] MCV 82.7 79.0 - 92.2 [facility] FL [facility] MCH 26.8 25.7 - 32.2 [facility] PG [facility] MCHC 32.4 32.3 - 36.5 [facility] g/dL [facility] Platelet Count 373 (H) 163 - 337 [facility] K/uL [facility] MPV 9.8 9.4 - 12.4 FL [facility] RDW 18.4 (H) 11.6 - 14.4 % [facility] Specimen Blood Performing Organization Address [facility] Phone Number [facility] [address] [place] [address] MAGNESIUM LEVEL (08/18/2019 7:48 PM EDT) Magnesium 2.0 1.6 - 2.3 MG/DL [facility] Specimen Blood Performing Organization Address [facility] Phone Number [facility] [address] [place] [address] COMPREHENSIVE METABOLIC PANEL (08/18/2019 7:48 PM EDT) Sodium 141 134 - 145 mmol/L [facility] Potassium 3.0 (L) 3.5 - 5.1 mmol/L [facility] Chloride 106 98 - 107 mmol/L [facility] CO2 23 22 - 30 mmol/L [facility] Calcium 8.8 8.3 - 10.1 mg/dl [facility] Albumin 3.2 (L) 3.5 - 5.0 g/dl [facility] BUN 12 9 - 20 mg/dl [facility] Creatinine 0.8 0.8 - 1.5 mg/dl [facility] Glucose 91 70 - 99 mg/dl [facility] Total Protein 7.0 6.3 - 8.2 g/dl [facility] Total Bilirubin 0.7 0.0 - 1.1 MG/DL [facility] AST 45 17 - 59 U/L [facility] ALT 60 21 - 72 U/L [facility] Alkaline 66 40 - 150 U/L [facility] eGFR >60 See Interpretation [facility] Comment: Below ml/min/1.73ml [facility] Estimated GFR Interpretation: Above 60ml/min/1.73m2 = Normal Renal Function 30-59 ml/min/1.73m2 = Stage 3 Chronic Kidney Disease 15-29 ml/min/1.73m2 = Stage 4 Chronic Kidney Disease Less than 15 ml/min/1.73m2 = Stage 5 Chronic Kidney Disease The GFR value is calculated using the Modification of Diet in Renal Disease ( MDRD) Study Equation which can be found at: https://www.kidney.org/content/uunt-fhqwg-kbrxlwmf BUN/Creatinine 15 6 - 22 RATIO [facility] Anion Gap 12 (H) 3 - 11 mmol/L [facility] A/G Ratio 0.8 0.8 - 2.0 ratio [facility] Specimen Blood Performing Organization Address City/State/Zipcode Phone Number [facility] [address] [facility] [address] [place] [address] TROPONIN (08/18/2019 7:48 PM EDT) Troponin <0.012 0.000 - 0.034 [facility] Comment: ng/ml [facility] Negative less than or equal to 0.034 ng/ml Indeterminate 0.0351 - 0.119 ng/ml (Suggest Repeat in 4 Hours) Critical (AMI Cutoff) greater than or equal to 0.120 ng/ml Specimen Blood Performing Organization Address City/State/Zipcode Phone Number [facility] [address] [place] [address] documented in this encounter Visit Diagnoses Diagnosis Pneumonia of both lungs due to infectious organism, unspecified part of lung - Primary Hypokalemia Hypopotassemia documented in this encounter Administered Medications Medication Order MAR Action Action Date Dose Rate Site acetaminophen (TYLENOL) tablet Given 08/18/2019 8:05 PM EDT 1,000 mg 1,000 mg 1,000 mg, Oral, X1, 1 dose, First dose on 08/18/19 at 2100 amoxicillin-clavulanic acid (AUGMENTIN) Given 08/18/2019 11:15 PM EDT 500 mg 500-125 mg 500 mg 500 mg, Oral, NOW, 1 dose, 08/18/19 at 2250 azithromycin (ZITHROMAX) tablet 500 mg Given 08/18/2019 11:15 PM EDT 500 mg 500 mg, Oral, NOW, 1 dose, 08/18/19 at 2250 iohexol (OMNIPAQUE) 350 MG/ML injectable Push 08/18/2019 9:10 PM EDT 95 mL solution 95 mL 95 mL, Intravenous, NOW, 1 dose, 08/18/19 at 2110 ondansetron (ZOFRAN ODT) soluble tablet 4 mg Given 08/18/2019 9:53 PM EDT 4 mg 4 mg, Oral, NOW, 1 dose, 08/18/19 at 2125 potassium chloride (K-DUR) controlled Given 08/18/2019 8:32 PM EDT 40 mEq release tablet 40 mEq 40 mEq, Oral, NOW, 1 dose, 08/18/19 at 2024 documented in this encounter Insurance Payer Benefit Plan / Subscriber ID Effective Dates Phone Address Type Group [place] xxxxxxxx 2019-Present [place] documented as of this encounter
[2019-09-03 16:30] LABS: Urine Appearance Clear; Urine Bilirubin Negative (Negative); Urine Blood Negative (Negative); Urine Color Yellow; Urine Glucose Negative (Negative); Urine Ketones Negative (Negative); Urine Nitrite Negative (Negative); Urine Protein Negative (Negative); Urine Specific Gravity 1.011 (1.010-1.030); Urine Urobilinogen Negative (Negative)
[2019-09-03] MEDS ORDERED: Iohexol 300* (CONTRAST) 10 ML SDV IV ONE (16:50)
[2019-09-03] MEDS: KCL 10 MEQ/50 ML IVPREMIX* 10 MEQ/50 ML BAG IV SCH ×2 (17:24→18:42)
[2019-09-03] MEDS ORDERED: Magnesium Oxide TAB* 400 MG PO ONE (18:25)
[2019-09-03] MEDS ORDERED: Potassium Chlor TAB* 20 MEQ TAB.ER PO ONE (18:39)
[2019-09-03 18:50] VITALS: BP 110/60
== END 2019-09-03 18:40 | disposition home or self-care (01) ==
LOC: ED 14:21
DX: J18.9 Pneumonia, unspecified organism (principal); K57.90 Diverticulosis of intestine, part unspecified, without perforation or abscess without bleeding; K21.9 Gastro-esophageal reflux disease without esophagitis; G61.0 Guillain-Barre syndrome; Z98.84 Bariatric surgery status; Z90.49 Acquired absence of other specified parts of digestive tract; Z87.442 Personal history of urinary calculi; Z79.899 Other long term (current) drug therapy; Z88.8 Allergy status to other drugs, medicaments and biological substances
CPT/HCPCS: 36415; 74019; 74177; 80053; 81003; 83605; 83690; 83735; 85025; 86140; 93005; 96360; 96361; 96374; 99283; A9270-GY; J3480; Q9967

== ENCOUNTER 2019-09-26 14:52 | Emergency (ER) | payer MEDICAID ==
--- OUTSIDE RECORDS SUMMARY | 2019-09-26 15:17 | XMS REPORT | Summary of Care ---
:1960 Author Organization [facility] Address [address] [facility] [place] [address] Care Team Providers Name Role Phone None, [place] Primary Care Provider Unavailable Reason for Referral MRI/CAT/PET Scan (Routine) Status Reason Specialty Diagnoses / Referred By Referred To Procedures Contact Contact Pending Review Diagnoses Aspiration pneumonia of both lungs due to gastric secretions, unspecified part of lung (HCC) Gastroesophageal reflux disease, esophagitis presence not specified Maria Antonia Florian MD Procedures NM GASTRIC EMPTYING STUDY [address] [place] [address] Outpatient Procedure (Routine) Status Reason Specialty Diagnoses / Referred By Referred To Procedures Contact Contact Pending GASTROENTEROLOGY / Diagnoses Aspiration pneumonia of both lungs due to gastric secretions, unspecified part of lung (HCC) Gastroesophageal reflux disease, esophagitis presence not specified Maria Antonia Florian, Review Gastroenterology MD [address] [place] [address] Reason for Visit Reason Comments GI Problem Pt. referred by Dr. Benedict for GERD, hypokalemia & aspiration pneumonia. Needs K+ check today (per Dr. Moore). Encounter Details Date Type Department Care Team Description 09/25/2019 Office Visit Maria Antonia Soares MD Gastroesophageal reflux disease, esophagitis presence not specified (Primary Dx); Gastroenterology/Hep [address] [facility] Aspiration pneumonia of both lungs due to gastric secretions, unspecified part of lung (HCC); [place] [address] Gastroesophageal reflux disease with esophagitis [address] [facility] [phone] [place] [address] [phone] Allergies Active Allergy Reactions Severity Noted Date Comments Compazine CLINICAL REGISTERED NURSE Reaction 08/18/2019 Metoclopramide CLINICAL REGISTERED NURSE Reaction 08/18/2019 documented as of this encounter (statuses as of 09/25/2019) Medications Medication Sig Dispensed Refills Start Date End Date Status potassium chloride Take 2 Tabs 120 Tab 0 09/18/2019 Active (K-TAB) 10 MEQ Oral by mouth Tab CR TWICE DAILY. pantoprazole Take 1 Tab 30 Tab 6 09/25/2019 Active (PROTONIX) 40 MG Oral by mouth Tab ECIndications: BEFORE Gastroesophageal BREAKFAST. reflux disease with esophagitis, Aspiration pneumonia of both lungs due to gastric secretions, unspecified part of lung ([facility]) potassium chloride Take 1 Tab 60 Tab 0 09/17/2019 Discontinued (K-DUR) 20 MEQ Oral by mouth 9 Tab CRIndications: TWICE Hypokalemia due to DAILY. excessive gastrointestinal loss of potassium pantoprazole Take 1 Tab 30 Tab 0 09/18/2019 Discontinued (PROTONIX) 40 MG Oral by mouth 9 (Reorder) Tab ECIndications: BEFORE Gastroesophageal BREAKFAST. reflux disease with esophagitis, Aspiration pneumonia of both lungs due to gastric secretions, unspecified part of lung (HCC) Hospital, Clinic, or Other Ordered Dose Route Frequency Start Date End Date Status Facility Administered Medication normal saline IVIndications: IV CONTINUOUS 09/03/2019 Active Vomiting and diarrhea documented as of this encounter (statuses as of 09/25/2019) Active Problems Problem Noted Date Aspiration pneumonia of both lungs due to gastric secretions 09/25/2019 documented as of this encounter (statuses as of 09/25/2019) Social History Tobacco Use Types Packs/Day Years [...] Sign Reading Time Taken Comments Blood Pressure 98/72 09/25/2019 1:34 PM EDT Pulse 78 09/25/2019 1:34 PM EDT Temperature 36.7 09/25/2019 1:34 PM EDT C (98.1 F) Respiratory Rate - - Oxygen Saturation - - Inhaled Oxygen Concentration - - Weight 80.3 kg (177 lb) 09/25/2019 1:34 PM EDT Height 174 cm (5' 8.5") 09/25/2019 1:34 PM EDT Body Mass Index 26.52 09/25/2019 1:34 PM EDT documented in this encounter Patient Instructions Patient InstructionsKiMaria Antonia landrum MD - 09/25/2019 1:45 PM EDT1. Schedule EGD 2. Schedule gastric emptying study 3. Bloodwork today Maria Antonia Florian MD documented in this encounter Progress Notes Maria Antonia Florian MD - 09/25/2019 1:45 PM EDT PATIENT: David Beck : 1960 DATE OF SERVICE: 09/25/2019 REFERRING PRACTITIONER: Smith Benedict PRIMARY CARE PROVIDER: None, [place] CHIEF COMPLAINT: Chief Complaint Patient presents with GI Problem Pt. referred by Dr. Benedict for GERD, hypokalemia & aspiration pneumonia. Needs K+ check today (per Dr. Moore). Subjective HISTORY OF PRESENT ILLNESS: David Beck is a 58-y.o. male who presents as a referral from Dr. Benedict for recurrent aspiration pneumonia. Patient has history of prior gastric stapling, and over the past year, has had multiple pneumonias, presumed secondary to aspiration. He recently moved back to the region from [place] where he lived for the past 16 years. He reports having extensive gastroenterology workup, including multiple EGDs, CT scans. He reports having difficulty eating solid foods and large amounts of liquid. Heoften wakes up in the middle of the night covered in gastric contents. This is despite the report that he usually eats dinner around 5 pm, and does not eat anything afterwards; he goes to bed at 10 or 11 pm. He reports having sensation of early satiety. He is currently at his lowest weight in many years (was previously morbidly obese with BMI>45). His weight is currently stable. He denies any bowel changes. He has persistent hypokalemia, which has been attributed to the regurgitation of gastric contents. He reports that these symptoms are worst at night. He denies dysphagia, fatigue, nausea, vomiting, melena, hematemesis, hematochezia, constipation, diarrhea, jaundice, fevers, chills, night sweats, weight loss, easy bruising, chest pain, shortness of breath, dysuria, hematuria , pyuria, joint pains, acholic stools, dark urine or systemic pruritis. Current Outpatient Medications Medication Sig pantoprazole (PROTONIX) 40 MG Oral Tab EC Take 1 Tab by mouth BEFORE BREAKFAST. potassium chloride (K-TAB) 10 MEQ Oral Tab CR Take 2 Tabs by mouth TWICE DAILY. Current Facility-Administered Medications Medication normal saline IV Allergies Allergen Reactions Compazine CLINICAL REGISTERED NURSE Reaction Reglan [Metoclopramide] CLINICAL REGISTERED NURSE Reaction REVIEW OF SYSTEMS: All remaining review of systems was negative except for as noted in the history of present illness/subjective. Objective PHYSICAL EXAMINATION: VITALS: BP 98/72 | Pulse 78 | Temp 98.1 F (36.7 C) | Ht 5' 8.5" ( 1.74 m) | Wt 177 lb (80.3 kg) | BMI 26.52 kg/m Body mass index is 26.52 kg/m. GENERAL: alert, oriented, no acute distress. [...] deferred. IMPRESSION: ICD-9-CM ICD-10-CM 1. Gastroesophageal reflux disease, esophagitis presence not specified 530.81 K21.9 COMPREHENSIVE METABOLIC PANEL EGD (SENA / NON SENA) NM GASTRIC EMPTYING STUDY VITAMIN B12 / FOLATE CBC NO DIFFERENTIAL 2. Aspiration pneumonia of both lungs due to gastric secretions, unspecified part of lung (HCC) 507.0 J69.0 EGD (SENA / NON SENA) NM GASTRIC EMPTYING STUDY VITAMIN B12 / FOLATE CBC NO DIFFERENTIAL Plan PLAN: 1. Repeat EGD 2. Gastric emptying study: consider small bowel follow through as well 3. Continue protonix 4. Check CBC, CMP, Vit b12 Follow up: Schedule follow-up here in 3 week(s). Author: Maria Antonia Florian MD 09/25/2019 14:02 documented in this encounter Plan of Treatment Date Type Specialty Care Team Description 09/26/2019 GI Procedure Gastroenterology Maria Antonia Florian MD [address] [place] [address] [phone] 10/08/2019 Office Visit Gastroenterology Maria Antonia Florian MD [address] [place] [address] [phone] Name Type Priority Associated Diagnoses Order Schedule COMPREHENSIVE METABOLIC Lab Routine Gastroesophageal reflux Ordered: PANEL disease, esophagitis 09/25/2019 presence not specified NM GASTRIC EMPTYING Imaging Routine Aspiration pneumonia of Expected: STUDY both lungs due to gastric 09/25/2019, secretions, unspecified Expires: part of lung (HCC) 09/24/2020 Gastroesophageal reflux disease, esophagitis presence not specified VITAMIN B12 / FOLATE Lab Routine Aspiration pneumonia of Ordered: both lungs due to gastric 09/25/2019 secretions, unspecified part of lung (HCC) Gastroesophageal reflux disease, esophagitis presence not specified CBC NO DIFFERENTIAL Lab Routine Aspiration pneumonia of Ordered: both lungs due to gastric 09/25/2019 secretions, unspecified part of lung (HCC) Gastroesophageal reflux disease, esophagitis presence not specified Name Type Priority Associated Diagnoses Order Schedule EGD (SENA / NON Referral Routine Aspiration pneumonia of Expected: 09/25, SENA) both lungs due to gastric Expires: 09/25/2020 secretions, unspecified part of lung (HCC) Gastroesophageal reflux disease, esophagitis presence not specified Health Maintenance Due Date Last Done Comments HIV SCREENING 1974 HEPATITIS C SCREENING 1999 LIPID DISORDER SCREENING 03/24/2009 03/24/2004 COLONOSCOPY SCREENING 2009 ZOSTER IMMUNIZATION SERIES (1 2009 of 2) DIABETES SCREENING 09/03/2020 09/03/2019, 08/18/2019 DEPRESSION SCREENING 09/17/2020 09/17/2019 INFLUENZA VACCINE (#1) 2020 Postponed from 07/28/2019 (Patient refused) HPV IMMUNIZATION SERIES Aged Out No longer [...] this encounter Visit Diagnoses Diagnosis Gastroesophageal reflux disease, esophagitis presence not specified - Primary Aspiration pneumonia of both lungs due to gastric secretions, unspecified part of lung (HCC) Gastroesophageal reflux disease with esophagitis documented in this encounter Insurance Payer Benefit Plan / Subscriber ID Effective Dates Phone Address Type Group [place] xxxxxxxx 2019-Present Medicaid [place] documented as of this encounter
--- OUTSIDE RECORDS SUMMARY | 2019-09-26 15:17 | XMS REPORT | Summary of Care ---
:1960 Author Organization [facility] Address [address] [facility] [place] [address] Care Team Providers Name Role Phone None, [place] Primary Care Provider Unavailable Reason for Referral Status Reason Specialty Diagnoses / Procedures Referred By Contact Referred To Contact Smith Benedict MD [address] [place] [address] Scheduling Instructions Reason for Consult:58 y/o with previous gastric stapling 20 years ago and hiatal hernia repair 18 months ago with recent hospitalization for aspiration pneumonia-- noted on EGD during hospitalization to have severe reflux. Would appreciate review and recommendations on treatment going forward or possible referral to GI Surgery. Thank you. Patient Background: David Beck is a 58-y.o. male Reason for Visit Reason Comments Follow Up pt presents for follow up with vomiting, still only happening at night, states burning when happens. Was [place] [facility] [place] 03 until the . Encounter Details Date Type Department Care Team Description 09/17/2019 Office Visit [facility] Smith Benedict, Gastroesophageal reflux disease with esophagitis (Primary Dx); Practice MD Hypokalemia due to excessive gastrointestinal loss of potassium; [address] [facility] Aspiration pneumonia of both lungs due to gastric secretions, unspecified part of lung (HCC) [place] [address] [phone] Allergies Active Allergy Reactions Severity Noted Date Comments Compazine OPTICIANRY TEACHER Reaction 08/18/2019 Metoclopramide OPTICIANRY TEACHER Reaction 08/18/2019 documented as of this encounter (statuses as of 09/17/2019) Medications Medication Sig Dispensed Refills Start Date End Date Status pantoprazole Take 1 Tab 30 Tab 3 09/17/2019 Active (PROTONIX) 40 MG Oral by mouth Tab ECIndications: DAILY. Gastroesophageal reflux disease with esophagitis, Aspiration pneumonia of both lungs due to gastric secretions, unspecified part of lung (HCC) potassium chloride Take 1 Tab 60 Tab 0 09/17/2019 Active (K-DUR) 20 MEQ Oral by mouth Tab CRIndications: TWICE Hypokalemia due to DAILY. excessive gastrointestinal loss of potassium amoxicillin-clavulani Take 1 Tab 20 Tab 0 08/18/2019 Discontinued c acid (AUGMENTIN) by mouth 9 875-125 MG Oral Tab TWICE DAILY. pantoprazole Take 1 Tab 30 Tab 3 08/27/2019 Discontinued (PROTONIX) 40 MG Oral by mouth 9 (Reorder) Tab ECIndications: DAILY. Gastroesophageal reflux disease with esophagitis Hospital, Clinic, or Other Ordered Dose Route Frequency Start Date End Date Status Facility Administered Medication normal saline IVIndications: IV CONTINUOUS 09/03/2019 Active Vomiting and diarrhea documented as of this encounter (statuses as of 09/17/2019) Active Problems No known active problemsdocumented as [...] Sign Reading Time Taken Comments Blood Pressure 102/62 09/17/2019 8:13 AM EDT Pulse 78 09/17/2019 8:13 AM EDT Temperature 36.9 09/17/2019 8:13 AM EDT C (98.4 F) Respiratory Rate - - Oxygen Saturation 97% 09/17/2019 8:13 AM EDT Inhaled Oxygen Concentration - - Weight 80.7 kg (178 lb) 09/17/2019 8:13 AM EDT Height 174 cm (5' 8.5") 09/17/2019 8:13 AM EDT Body Mass Index 26.67 09/17/2019 8:13 AM EDT documented in this encounter Patient Instructions Patient InstructionsRistedtSmith MD - 09/17/2019 8:00 AM EDTAdd potassium pills twice a day Take protonix at evening meal Change to more liquid diet and no eating after 6PM Sleep in upright as much as possible Will discuss with GI whether to redo scope or consult GI Surgery for possible definitive procedure. documented in this encounter Progress Notes Smith Benedict MD - 09/17/2019 8:00 AM EDT PATIENT: David Beck : 1960 DATE OF SERVICE: 09/17/2019 CHIEF COMPLAINT: Chief Complaint Patient presents with Follow Up pt presents for follow up with vomiting, still only happening at night, states burning when happens. Was admitted [place] [facility] [place] 03 until the . Subjective HISTORY OF PRESENT ILLNESS: David Beck is a 58-y.o. male. 58 y/o here on follow-up for GERD and pneumonia. Brought historical records for review that clearly indicate he has severe reflux and gastritis as his main concern. Has a history of aspiration pneumonia secondary to nightly aspiration of stomach contents. Has repeated low potassium as well secondary to gastric surgery. 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 States whenever he sleeps, he spits up. Often wakes with stomach contents on his face and pillow. Was previously thought to have Bipolar Disorder but never on meds. Previous doctor states no. Does have a family history of Bipolar disorder. Was previously on Thyroid medication for hypothyroid--6 months of treatment. No longer on meds. Past Medical History: Diagnosis Date Guillain Pappas syndrome (HCC) 1997 Hernia of abdominal cavity History reviewed. No pertinent family history. Current Outpatient Medications Medication Sig pantoprazole (PROTONIX) 40 MG Oral Tab EC Take 1 Tab by mouth DAILY. Current Facility-Administered Medications Medication normal saline IV Allergies Allergen Reactions Compazine OPTICIANRY TEACHER Reaction Reglan [Metoclopramide] OPTICIANRY TEACHER Reaction Social History Socioeconomic History Marital status: [...] file Gets together: Not on file Attends [employer] service: Not on file Active member of [...] file Social History Narrative Not on file Over the last 2 weeks, have you been feeling down, depressed, anxious, or hopeless?: 0 Over the past 2 weeks, have you felt little interest or pleasure in doing things ?: 0 REVIEW OF SYSTEMS: Review of Systems Constitutional: Negative for chills, fever, malaise/fatigue and weight loss. HENT: Negative for ear pain, hearing loss and sinus pain. Eyes: Negative for blurred vision and pain. Respiratory: Negative for cough, sputum production, shortness of breath and wheezing. Cardiovascular: Negative for chest pain and orthopnea. Gastrointestinal: Positive for vomiting. Negative for blood in stool, constipation, diarrhea and heartburn. Genitourinary: Negative for dysuria and urgency. Musculoskeletal: Negative for myalgias. Skin: Negative for itching and rash. Neurological: Positive for tingling. Negative for dizziness, tremors and headaches. Psychiatric/Behavioral: Negative for depression, substance abuse and suicidal ideas. The patient is not nervous/anxious. Objective PHYSICAL EXAM: VITALS: BP 102/62 (BP Location: Right arm, Patient Position: Sitting) | Pulse 78 | Temp 98.4 F (36.9 C) | Ht 5' 8.5" (1.74 m) | Wt 178 lb (80.7 kg ) | SpO2 97% | BMI 26.67 kg/m Body mass index is 26.67 kg/m. Physical Exam Vitals signs reviewed. Constitutional: General: He is not in acute distress. Appearance: Normal appearance. He is normal weight. He is not ill-appearing, toxic-appearing or diaphoretic. HENT: Head: Normocephalic and atraumatic. Right Ear: Tympanic membrane and ear canal normal. There is no impacted cerumen. Left Ear: Tympanic membrane and ear canal normal. There is no impacted cerumen. Nose: Nose normal. No congestion or rhinorrhea. Mouth/Throat: Mouth: Mucous membranes are moist. Pharynx: Oropharynx is clear. No oropharyngeal exudate or posterior oropharyngeal erythema. Eyes: General: Right eye: No discharge. Left eye: No discharge. Pupils: Pupils are equal, round, and reactive to light. Neck: Musculoskeletal: Normal range of motion. No neck rigidity or muscular tenderness. Vascular: No carotid bruit. Cardiovascular: Rate and Rhythm: Normal rate and regular rhythm. Pulses: Normal pulses. Heart sounds: Normal heart sounds. No murmur. No friction rub. No gallop. Pulmonary: Effort: Pulmonary effort is normal. Breath sounds: Normal breath sounds. No wheezing, rhonchi or rales. Abdominal: General: Abdomen is flat. Bowel sounds are normal. There is no distension. Palpations: Abdomen is soft. Tenderness: There is no tenderness. There is no guarding. Hernia: No hernia is present. Musculoskeletal: General: No swelling. Lymphadenopathy: Cervical: No cervical adenopathy. Skin: General: Skin is warm and dry. Neurological: General: No focal deficit present. Mental Status: He is alert and oriented to person, place, and time. Cranial Nerves: No cranial nerve deficit. Psychiatric: Mood and Affect: Mood normal. Behavior: Behavior normal. ASSESSMENT / IMPRESSION: 1. Gastroesophageal reflux disease with esophagitis Continue current medication and will consult GI. Pt counseled on high protein liquid-type diet to facilitate movement through stomach and reduce chance for reflux. No PO intake after 1800. Sleep with head of bed/chair up. - pantoprazole (PROTONIX) 40 MG Oral Tab EC; Take 1 Tab by mouth DAILY. Dispense: 30 Tab; Refill: 3 - CONSULT TO GASTROENTEROLOGY 2. Hypokalemia due to excessive gastrointestinal loss of potassium Persistent low K. Will add 20MEQ KDUR and reassess at next visit. - potassium chloride (K-DUR) 20 MEQ Oral Tab CR; Take 1 Tab by mouth TWICE DAILY. Dispense: 60 Tab;Refill: 0 3. Aspiration pneumonia of both lungs due to gastric secretions, unspecified part of lung (HCC) Resolved. - pantoprazole (PROTONIX) 40 MG Oral Tab EC; Take 1 Tab by mouth DAILY. Dispense: 30 Tab; Refill: 3 - CONSULT TO GASTROENTEROLOGY Plan As above. Author: Smith Benedict MD 09/17/2019 08:30 documented in this encounter Plan of Treatment Date Type Specialty Care Team Description 09/30/2019 Office Visit Gastroenterology Kristina Parra, [facility] [address] [place] [address] [phone] Name Type Priority Associated Diagnoses Order Schedule CONSULT TO Consult Routine Gastroesophageal reflux Ordered: GASTROENTEROLOGY disease with esophagitis 09/17/2019 Aspiration pneumonia of both lungs due to gastric secretions, unspecified part of lung (HCC) Health Maintenance Due Date Last Done Comments [...] Gastroesophageal reflux disease with esophagitis - Primary Hypokalemia due to excessive gastrointestinal loss of potassium Aspiration pneumonia of both lungs due to gastric secretions, unspecified part of lung (HCC) documented in this encounter Insurance Payer Benefit Plan / Subscriber ID Effective Dates Phone Address Type Group [place] xxxxxxxx 2019-Present Medicaid [place] documented as of this encounter
[2019-09-26] MEDS ORDERED: NS 0.9% 1000 ML** 1,000 ML IV ONE (16:51)
[2019-09-26 17:04] LABS: ABS Basophils 0.1 10^3/ul (0-0.2); ABS Eosinophils 0.2 10^3/ul (0-0.6); ABS Lymphocytes 1.4 10^3/ul (1.0-4.8); ABS Monocytes 0.5 10^3/ul (0-0.8); Eosinophil % 3.6 %; Hematocrit 34 % (42-52); Hemoglobin 11.3 g/dL (14.0-18.0); Lymphocyte % 21.8 %; Mean Corpuscular HGB Conc 33 g/dL (31-36); Mean Corpuscular Hemoglobin 28 pg (27-31); Mean Corpuscular Volume 85 fL (80-94); Platelet Count 275 10^3/uL (150-450); Red Blood Count 4.02 10^6 /uL (4.18-5.48); Red Cell Distribution Width 18 % (10-15); White Blood Count 6.2 10^3/uL (3.5-10.8)
--- NOTE | 2019-09-26 17:08 | ED ---
Complex/Multi-Sys Presentation - HPI Summary HPI Summary: This pt is a 58 y/o male presenting to [facility] c/o nausea and vomiting for the past 3 weeks. He notes he has hx of Guillain [place]omanie and PSHx of lap band (?vs stapling) surgery done by Dr. Parker in 1997 and hernia repairs x4-5. He states his last hernia repair was about 1.5 years ago. Pt notes he has had nausea and vomiting despite of what he eats. He notes he is not able to tolerate solid food and has been eating/drinking liquids (such as soup). Today he notes he had 3 episodes of emesis today. 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 He notes he has a "blockage in his stomach" and has a surgery scheduled in [place]. Pt had blood work done at [place] and pt was called today notifying him of his potassium level of 2.6. He was referred to the ED for further evaluation. Pt reports he takes potassium supplements, 4 pills a day. - History Of Current Complaint Chief Complaint: EDWeakness Time Seen by Provider: 09/26/19 16:51 Hx Obtained From: Patient Onset/Duration: Lasting Weeks, Still Present Timing: Weeks Severity Currently: Moderate Aggravating Factor(s): nothing Alleviating Factor(s): nothing Associated Signs And Symptoms: Positive: Weakness - generalized, Nausea, Vomiting. Negative: Fever - Allergies/Home Medications Allergies/Adverse Reactions: Allergies Allergy/AdvReac Type Severity Reaction Status Date / Time metoclopramide [From Reglan] Allergy Hallucinati Verified 09/03/19 14:27 ons prochlorperazine Allergy See Comment Verified 09/03/19 14:27 [From Compazine] Home Medications: Home Medications Potassium Chloride [K-Tab] 20 meq PO BID 09/26/19 [History Confirmed 09/26/19] PMH/Surg Hx/FS Hx/Imm Hx Endocrine/Hematology History: Denies: Hx Diabetes Cardiovascular History: Denies: Hx Hypercholesterolemia, Hx Hypertension Respiratory History: Reports: Hx Pneumonia Denies: Hx Asthma, Hx Chronic Obstructive Pulmonary Disease (COPD) GI History: Reports: Hx Gall Bladder Disease, Other GI Disorders - gastric stapling History: Reports: Hx Kidney Stones Denies: Hx Renal Disease Sensory History: Reports: Hx Contacts or Glasses Denies: Hx Deafness, Hx Hearing Aid Opthamlomology History: Reports: Hx Contacts or Glasses Neurological History: Reports: Other Neuro Impairments/Disorders - guillian Maz[place]ie Denies: Hx Dementia - Surgical History Surgery Procedure, Year, and Place: Umbilical and inguinal hernia repair 2016. Gastric stapling 1996. gallbladder 1999. 5 skin surgeries Infectious Disease History: No Infectious Disease History: Denies: Traveled Outside the [place] in Last 30 Days - Family History Known Family History: Positive: Other - lung cancer Family History: father with lung CA - Social History Alcohol Use: None Hx Substance Use: No Substance Use Type: Reports: None Hx Tobacco Use: No Smoking Status (MU): Never Smoked Tobacco Have You Smoked in the Last Year: No Review of Systems Negative: Fever, Chills ENT: Negative Cardiovascular: Negative Positive: Vomiting, Nausea Positive: Weakness - generalized All Other Systems Reviewed And Are Negative: Yes Physical Exam - Summary Physical Exam Summary: Constitutional: Well-developed, Well-nourished, Alert. (-) Distressed Skin: Warm, Dry HENT: Normocephalic; Atraumatic Eyes: Conjunctiva normal Neck: Musculoskeletal ROM normal neck. (-) JVD, (-) Stridor Cardio: Rhythm regular, rate normal, Heart sounds normal; Intact distal pulses; Radial pulses are 2+ and symmetric. (-) Murmur Pulmonary/Chest wall: Effort normal. (-) Respiratory distress, (-) Wheezes, (-) Rales Abd: Soft, (-) tenderness, protuberant, (-) Guarding, (-) Rebound, old scars. Musculoskeletal: (-) Edema Lymph: (-) Cervical adenopathy Neuro: Alert, Oriented x3 Psych: Mood and affect Normal Triage Information Reviewed: Yes Vital Signs On Initial Exam: Initial Vitals Temp Pulse Resp BP Pulse Ox 97.8 F 78 20 124/90 96 09/26/19 14:54 09/26/19 14:54 09/26/19 14:54 09/26/19 14:54 09/26/19 14:54 Vital Signs Reviewed: Yes Procedures - Sedation Patient Received Moderate/Deep Sedation with Procedure: No Diagnostics - Vital Signs Vital Signs Temp Pulse Resp BP Pulse Ox 09/26/19 14:54 97.8 F 78 20 124/90 96 - Laboratory Lab Results: Lab Results 09/26/19 Range/Units 16:59 WBC 6.2 (3.5-10.8) 10^3/uL RBC 4.02 L (4.18-5.48) 10^6 /uL Hgb 11.3 L (14.0-18.0) g/dL Hct 34 L (42-52) % MCV 85 (80-94) fL MCH 28 (27-31) pg MCHC 33 (31-36) g/dL RDW 18 H (10-15) % Plt Count 275 (150-450) 10^3/uL MPV 7.0 L (7.4-10.4) fL Neut % (Auto) 65.1 % Lymph % (Auto) 21.8 % [place] % (Auto) 8.7 % Eos % (Auto) 3.6 % Baso % (Auto) 0.8 % Absolute Neuts (auto) 4.0 (1.5-7.7) 10^3/ul Absolute Lymphs (auto) 1.4 (1.0-4.8) 10^3/ul Absolute Monos (auto) 0.5 (0-0.8) 10^3/ul Absolute Eos (auto) 0.2 (0-0.6) 10^3/ul Absolute Basos (auto) 0.1 (0-0.2) 10^3/ul Absolute Nucleated RBC 0.0 10^3/ul Nucleated RBC % 0.0 Result Diagrams: 09/26/19 16:59 09/26/19 16:59 Lab Statement: Any lab studies that have been ordered have been reviewed, and results considered in the medical decision making process. - EKG 16:59 Cardiac Rate: NL - at 69 bpm EKG Rhythm: Sinus Rhythm Summary of EKG Findings: EKG at 1659 shows sinus rhythm at a rate of 69 bpm. No ischemic changes. Re-Evaluation - Re-Evaluation First Eval Re-Evaluation Time: 17:38 Comment: Pt in agreement with discharge plan. 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 - K here 3.2, given 40 PO. Tolerating liquids. Follows w GI at [place]. Abd soft. He will follow up with surgery there. Case d/w surgery here given that he had his initial surgeries here, Kenrick Cunha in agreement w PO supplementation. Can f/u here or at [place], as per patient preference. - Diagnoses Provider Diagnoses: Hypokalemia - Physician Notifications Discussed Care Of Patient With: Dominic Choudhary Time Discussed With Above Provider: 17:29 Instructed by Provider To: Other - Discussed with Dr. Choudhary, surgeon, and went over patient's labs, his potassium is 3.[address] Choudhary agrees with PO supplements and following up with Dr. Salazar or Dr. Ventura as an outpatient. Discharge ED - Sign-Out/Discharge Documenting (check all that apply): Patient Departure - Discharge home - Discharge Plan Condition: Stable Disposition: HOME Patient Education Materials: Hypokalemia (ED) Referrals: Jalen Salazar MD [Medical Doctor] - Kian Ventura MD [Medical Doctor] - Additional Instructions: You were seen for low potassium, your potassium was 3.2 here. Please follow up with a surgeon at [place] or in our clinic here. Return for worsening pain, vomiting or if you are concerned - Billing Disposition and Condition Condition: STABLE Disposition: Home - Attestation Statements Document Initiated by Jaz: Yes Documenting Scribe: Katie Henry Provider For Whom Jaz is Documenting (Include Credential): Henrry Cochran MD Scribe Attestation: I, Katie Henry, scribed for Henrry Cochran MD on 09/27/19 at 1102. Scribe Documentation Reviewed: Yes Provider Attestation: The documentation as recorded by the Katie to accurately reflects the service I personally performed and the decisions made by me, Henrry Cochran MD Status of Scribe Document: Viewed
[2019-09-26 17:22] LABS: Albumin 2.9 g/dL (3.2-5.2); Albumin/Globulin Ratio 0.8 (1-3); BUN/Creatinine Ratio 9.4 (8-20); Calcium 8.7 mg/dL (8.6-10.3); EGFR African American 111.6 (>60); EGFR Non-African American 92.3 (>60); Globulin 3.6 g/dL (2-4); Magnesium 1.9 mg/dL (1.9-2.7); Potassium 3.2 mmol/L (3.5-5.0); Total Bilirubin 0.5 mg/dL (0.2-1.0); Total Protein 6.5 g/dL (6.4-8.9)
[2019-09-26] MEDS ORDERED: Potassium Chlor TAB* 20 MEQ TAB.ER PO ONE (17:34)
[2019-09-26 18:08] VITALS: BP 132/68
== END 2019-09-26 18:04 | disposition home or self-care (01) ==
LOC: ED 14:52
DX: E87.6 Hypokalemia (principal); Z98.84 Bariatric surgery status; Z88.8 Allergy status to other drugs, medicaments and biological substances; Z79.899 Other long term (current) drug therapy
CPT/HCPCS: 36415; 80053; 83735; 85025; 93005; 99282; A9270-GY

== ENCOUNTER 2019-11-10 08:25 | Emergency (ER) | payer OTHER ==
--- NOTE | 2019-11-10 08:43 | ED ---
Abdominal Pain/Male - HPI Summary HPI Summary: The pt is a 59 yr old male presenting to [facility] c/o abd pain beginning 3 days [employer]. He notes that he will be having surgery in November to repair an old gastric stapling procedure. He believes that something is stuck in his stomach . Last known bowel movement was 1 day [employer]. He rates his current pain severity due to the abd pain an 8/10. No aggravating or alleviating factors noted. He also reports fever, hematemesis, coughing with production, urgency, nausea, and vomiting, but denies any dysuria. - History of Current Complaint Chief Complaint: EDAbdPain Stated Complaint: VOMITING Time Seen by Provider: 11/10/19 08:37 Hx Obtained From: Patient Onset/Duration: Sudden Onset, Lasting Days, Still Present Timing: Constant Severity Initially: Severe Severity Currently: Severe Pain Intensity: 8 Pain Scale Used: 0-10 Numeric Location: Discrete At: LUQ, Discrete At: LLQ Aggravating Factor(s): Nothing Alleviating Factor(s): Nothing Associated Signs And Symptoms: Positive: Negative - dysuria, Fever, Cough - with production, Urinary Symptoms - urgency, Nausea, Vomiting - Allergies/Home Medications Allergies/Adverse Reactions: Allergies Allergy/AdvReac Type Severity Reaction Status Date / Time metoclopramide [From Reglan] Allergy Hallucinati Verified 09/03/19 14:27 ons prochlorperazine Allergy See Comment Verified 09/03/19 14:27 [From Compazine] Home Medications: Home Medications Ondansetron TAB* [Zofran 4 MG Tab*] 4 mg PO Q8H PRN 11/10/19 [History Confirmed 11/10/19] PMH/Surg Hx/FS Hx/Imm Hx Endocrine/Hematology History: Denies: Hx Diabetes Cardiovascular History: Denies: Hx Hypercholesterolemia, Hx Hypertension Respiratory History: Reports: Hx Pneumonia Denies: Hx Asthma, Hx Chronic Obstructive Pulmonary Disease (COPD) GI History: Reports: Hx Gall Bladder Disease, Other GI Disorders - gastric stapling History: Reports: Hx Kidney Stones Denies: Hx Renal Disease Sensory History: Reports: Hx Contacts or Glasses Denies: Hx Deafness, Hx Hearing Aid Opthamlomology History: Reports: Hx Contacts or Glasses Neurological History: Reports: Other Neuro Impairments/Disorders - guillian Irwin Denies: Hx Dementia - Surgical History Surgery Procedure, Year, and Place: Umbilical and inguinal hernia repair 2016. Gastric stapling 1996. gallbladder 1999. 5 skin surgeries Infectious Disease History: No Infectious Disease History: Denies: Traveled Outside the [place] in Last 30 Days - Family History Known Family History: Positive: Other - lung cancer Family History: father with lung CA - Social History Alcohol Use: None Hx Substance Use: No Substance Use Type: Reports: None Hx Tobacco Use: No Smoking Status (MU): Never Smoked Tobacco Have You Smoked in the Last Year: No Review of Systems Positive: Fever Positive: Cough - with production Positive: Vomiting, Nausea Positive: other - pos - urgency. Negative: dysuria All Other Systems Reviewed And Are Negative: Yes Physical Exam - Summary Physical Exam Summary: Constitutional: Well-developed, Well-nourished, Alert. (-) Distressed Skin: Warm, Dry HENT: Normocephalic; Atraumatic Eyes: Conjunctiva normal Neck: Musculoskeletal ROM normal neck. (-) JVD, (-) Stridor, (-) Tracheal deviation Cardio: Rhythm regular, rate normal, Heart sounds normal; Intact distal pulses; Radial pulses are 2+ and symmetric. (-) Murmur Pulmonary/Chest wall: Effort normal. (-) Respiratory distress, (-) Wheezes, (-) Rales Abd: Soft, Mild LLQ and LUQ tenderness, (-) Distension, (-) Guarding, (-) Rebound Musculoskeletal: (-) Edema Lymph: (-) Cervical adenopathy Neuro: Alert, Oriented x3 Psych: Mood and affect Normal Triage Information Reviewed: Yes Vital Signs On Initial Exam: Initial Vitals Temp Pulse Resp BP Pulse Ox 98.2 F 77 16 125/78 99 11/10/19 08:27 11/10/19 08:27 11/10/19 08:27 11/10/19 08:27 11/10/19 08:27 Vital Signs Reviewed: Yes Procedures - Sedation Patient Received Moderate/Deep Sedation with Procedure: No Diagnostics - Vital Signs Vital Signs Temp Pulse Resp BP Pulse Ox 11/10/19 08:27 98.2 F 77 16 125/78 99 - Laboratory Result Diagrams: 11/10/19 08:54 11/10/19 08:54 Lab Statement: Any lab studies that have been ordered have been reviewed, and results considered in the medical decision making process. - CT CT A/P CT Interpretation Completed By: Radiologist Summary of CT Findings: IMPRESSION: 1. NO OBSTRUCTION. 2. ATHEROSCLEROSIS. 3. DIVERTICULOSIS. ED Physician has reviewed this report. Abdominal Pain Male Course/Dx - Course Course Of Treatment: Patient is here with 3 days of left upper quadrant pain and vomiting. Patient has a known gastric obstruction following a bariatric surgery which he is getting repaired in November as an outpatient. Patient had blood per forearm with grossly unremarkable. Patient is given oral contrast and had no evidence of obstruction on CT scan. Patient tolerated the oral contrast without vomiting and tolerated by mouth fluids. Patient does not need emergent surgery at this time and is discharged without outpatient follow-up. - Diagnoses Provider Diagnoses: Epigastric abdominal pain, Vomiting Discharge ED - Sign-Out/Discharge Documenting (check all that apply): Patient Departure - discharge - Discharge Plan Condition: Stable Disposition: HOME Patient Education Materials: Acute Abdominal Pain (ED) Referrals: [facility] [address] [Outside] - 3 Days Additional Instructions: Please follow up with your surgeon on your appointment on Monday. Please return to the ED for any new or worsening symptoms. - Billing Disposition and Condition Condition: STABLE Disposition: Home - Attestation Statements Document Initiated by Jaz: Yes Documenting Scribe: Mahin Cotto Provider For Whom Jaz is Documenting (Include Credential): Vijay Herrera MD Scribe Attestation: Mahin Medrano, scribed for Vijay Herrera MD on 11/10/19 at 1430. Scribe Documentation Reviewed: Yes Provider Attestation: The documentation as recorded by the Mahin to accurately reflects the service I personally performed and the decisions made by , Vijay Herrera MD Status of Scribe Document: Viewed
[2019-11-10] MEDS ORDERED: NS 0.9% 1000 ML** 1,000 ML IV ONE (08:46)
[2019-11-10] MEDS ORDERED: Ondansetron INJ* 2 MG/ML VIAL IV ONE (08:46)
--- OUTSIDE RECORDS SUMMARY | 2019-11-10 08:50 | XMS REPORT | Summary of Care ---
:1960 Author Organization [facility] Address [address] [facility] [place] [address] Care Team Providers Name Role Phone None, [place] Primary Care Provider Unavailable Reason for Visit Reason Comments Sick had an endoscopy 09/26/2019, upcoming w/Dr. Florian 10/08, [place] [facility] Encounter Details Date Type Department Care Team Description 10/01/2019 Office Visit [facility] Smith Benedict, Vomiting, intractability of vomiting not specified, presence of nausea not specified, unspecified vomiting type (Primary Dx); Practice MD Hypokalemia due to excessive gastrointestinal loss of potassium; [address] Fever, [place] [address] [phone] Allergies Active Allergy Reactions Severity Noted Date Comments Compazine AUTOMOTIVE PAINT TECHNICIAN Reaction 08/18/2019 Metoclopramide AUTOMOTIVE PAINT TECHNICIAN Reaction 08/18/2019 documented as of this encounter (statuses as of 10/01/2019) Medications Medication Sig Dispensed Refills Start Date End Date Status potassium chloride Take 2 Tabs by 120 Tab 0 09/18/2019 Active (K-TAB) 10 MEQ Oral Tab mouth TWICE CR DAILY. pantoprazole (PROTONIX) Take 1 Tab by 30 Tab 6 09/25/2019 Active 40 MG Oral Tab mouth BEFORE ECIndications: BREAKFAST. Gastroesophageal reflux disease with esophagitis, Aspiration pneumonia of both lungs due to gastric secretions, unspecified part of lung (HCC) Hospital, Clinic, or Other Ordered Dose Route Frequency Start Date End Date Status Facility Administered Medication normal saline IVIndications: IV CONTINUOUS 09/03/2019 Active Vomiting and diarrhea documented as of this encounter (statuses as of 10/01/2019) Active Problems Problem Noted Date Aspiration pneumonia of both lungs due to gastric secretions 09/25/2019 documented as of this encounter (statuses as of 10/01/2019) Social History Tobacco Use Types Packs/Day Years Used Date Never Smoker 0 Smokeless Tobacco: Never Used Alcohol Use Drinks/Week oz/Week Comments Never Alcohol Habits Answer Date Recorded How often do you have a drink containing alcohol? Never 10/01/2019 How many drinks containing alcohol do you have on a typical Not asked day when you are drinking? How often do you have six or more drinks on one occasion? Not asked Physical Activity Answer Date Recorded On average, how many days per week do you engage in moderate to 7 days 2018 strenuous exercise (like walking fast, running, jogging, dancing, swimming, biking, or other activities that cause a light or heavy sweat)? On average, how many minutes do you engage in exercise at this 120 min 2018 level? Stress Answer Date Recorded Do you feel stress - tense, restless, nervous, or anxious, Not at all 2018 or unable to sleep at night because your mind is troubled all the time - these days? Financial Resource Strain Answer Date Recorded How hard is it for you to pay for the very basics like Not hard at all 2018 food, housing, medical care, and heating? Intimate Partner Violence Answer Date Recorded Within the last year, have you been afraid of your partner or No 10/01/2019 ex-partner? Within the last year, have you been humiliated or emotionally No 10/01/2019 abused in other ways by your partner or ex-partner? Within the last year, have you been kicked, hit, slapped, or No 10/01/2019 otherwise physically hurt by your partner or ex-partner? Within the last year, have you been raped or forced to have any No 10/01/2019 kind of sexual activity by your partner or ex-partner? Food Insecurity Answer Date Recorded Within the past 12 months, you worried that your food would Never true 2018 run out before you got money to buy more. Within the past 12 months, the food you bought just didn't Never true 2018 last and you didn't have money to get more. Transportation Needs Answer Date Recorded In the past 12 months, has lack of transportation kept you from No 10/01/2019 medical appointments or from getting medications? In the past 12 months, has lack of transportation kept you from No 10/01/2019 meetings, work, or getting things needed for daily living? Sex Assigned at Date Recorded Not on file Job Start Date Occupation Industry Not on file Not on file Not on file Travel History Travel Start Travel End No recent travel history available. documented as of this encounter Last Filed Vital Signs Vital Sign Reading Time Taken Comments Blood Pressure 126/86 10/01/2019 3:55 PM EST Pulse 70 10/01/2019 3:55 PM EST Temperature 38.3 10/01/2019 3:55 PM EST C (101 F) Respiratory Rate - - Oxygen Saturation 90% 10/01/2019 3:55 PM EST Inhaled Oxygen Concentration - - Weight 80.7 kg (178 lb) 10/01/2019 3:55 PM EST Height 172.7 cm (5' 8") 10/01/2019 3:55 PM EST Body Mass Index 27.06 10/01/2019 3:55 PM EST documented in this encounter Progress Notes Smith Benedict MD - 10/01/2019 4:00 PM EST PATIENT: David Beck : 1960 DATE OF SERVICE: 10/01/2019 CHIEF COMPLAINT: Chief Complaint Patient presents with Sick had an endoscopy 09/26/2019, upcoming w/Dr. Florian 10/08, [place] an [place] w[place] [facility] Subjective HISTORY OF PRESENT ILLNESS: David Beck is a 58-y.o. male. 58 y/o well known to me with history of bilateral aspiration pneumonia and upper GI obstruction symptoms. Recent EGD performed confirmed gastric abnormalities post surgical and low K+. Pt reports he continues to have vomiting with meals. Woke up with vomit in his bed last night. Had low grade temp today and earlier during this visit but has returned to normal. States he has had an increased cough butno other localizing reason for his temperature increase. 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 No pertinent family history. Current Outpatient Medications Medication Sig pantoprazole (PROTONIX) 40 MG Oral Tab EC Take 1 Tab by mouth BEFORE BREAKFAST. potassium chloride (K-TAB) 10 MEQ Oral Tab CR Take 2 Tabs by mouth TWICE DAILY. Current Facility-Administered Medications Medication normal saline IV Allergies Allergen Reactions Compazine [employer]OMOTIVE PAINT TECHNICIAN Reaction Reglan [Metoclopramide] AUTOMOTIVE PAINT TECHNICIAN Reaction Social History Socioeconomic History Marital status: Single Spouse name: Not on file Number of children: Not on file Years of education: Not on file Highest education level: Not on file Occupational History Not on file Social Needs Financial resource strain: Not hard at all Food insecurity: Worry: Never true Inability: Never true Transportation needs: Medical: No Non-medical: No Tobacco Use Smoking status: Never Smoker Smokeless tobacco: Never Used Substance and Sexual Activity Alcohol use: Never Frequency: Never Drug use: Not Currently Sexual activity: Yes Partners: Female Lifestyle Physical activity: Days per week: 7 days Minutes per session: 120 min Stress: Not at all Relationships Social connections: Talks on phone: Not on file Gets together: Not on file Attends adventist service: Not on file Active member of club or organization: Not on file Attends meetings of clubs or organizations: Not on file Relationship status: Not on file Intimate partner violence: Fear of current or ex partner: No Emotionally abused: No Physically abused: No Forced sexual activity: No Other Topics Concern Not on file Social History Narrative Not on file REVIEW OF SYSTEMS: Review of Systems Constitutional: Positive for chills, fever and malaise/fatigue. HENT: Negative for congestion, ear discharge, sinus pain, sore throat and tinnitus. Eyes: Negative for double vision. Respiratory: Positive for cough. Negative for hemoptysis, sputum production, shortness of breath andwheezing. Cardiovascular: Negative for chest pain. Gastrointestinal: Positive for abdominal pain, heartburn and vomiting. Negative for blood in stool, constipation, diarrhea and nausea. Genitourinary: Negative for dysuria, frequency and urgency. Skin: Negative for itching and rash. Neurological: Positive for dizziness and weakness. Negative for tremors, loss of consciousness and headaches. Psychiatric/Behavioral: Negative for depression, hallucinations and suicidal ideas. Objective PHYSICAL EXAM: VITALS: BP 126/86 (BP Location: Right arm, Patient Position: Sitting) | Pulse 70 | Temp 101 F(38.3 C) (Tympanic) | Ht 5' 8" (1.727 m) | Wt 178 lb ( 80.7 kg) | SpO2 90% | BMI 27.06 kg/m Body mass index is 27.06 kg/m. Physical Exam Vitals signs and nursing note reviewed. Constitutional: General: He is not in acute distress. Appearance: Normal appearance. He is normal weight. He is not ill-appearing, toxic-appearing or diaphoretic. HENT: Head: Normocephalic and atraumatic. Right Ear: Tympanic membrane normal. Left Ear: Tympanic membrane normal. Nose: Nose normal. Mouth/Throat: Mouth: Mucous membranes are moist. Pharynx: Oropharynx is clear. No oropharyngeal exudate or posterior oropharyngeal erythema. Eyes: General: No scleral icterus. Right eye: No discharge. Left eye: No discharge. Conjunctiva/sclera: Conjunctivae normal. Pupils: Pupils are equal, round, and reactive to light. Neck: Musculoskeletal: Normal range of motion. No neck rigidity or muscular tenderness. Cardiovascular: Rate and Rhythm: Normal rate and regular rhythm. Pulses: Normal pulses. Heart sounds: Normal heart sounds. No murmur. No friction rub. No gallop. Pulmonary: Effort: Pulmonary effort is normal. No respiratory distress. Breath sounds: No wheezing, rhonchi or rales. Abdominal: General: Abdomen is flat. Bowel sounds are normal. Palpations: Abdomen is soft. Tenderness: There is tenderness (epigastric and RUQ--same as baseline). There is no right CVA tenderness, left CVA tenderness, guarding or rebound. Musculoskeletal: General: No swelling. Right lower leg: No edema. Left lower leg: No edema. Lymphadenopathy: Cervical: No cervical adenopathy. Skin: General: Skin is warm and dry. Findings: No lesion or rash. Neurological: Mental Status: He is alert and oriented to person, place, and time. Psychiatric: Mood and Affect: Mood normal. Behavior: Behavior normal. ASSESSMENT / IMPRESSION: 1. Vomiting, intractability of vomiting not specified, presence of nausea not specified, unspecifiedvomiting type Baseline vomiting for which he is seeing GI for obstruction. Has an appointment with the surgeon this week and follow up with Dr. Florian on the . Main complaint with me today is fatigue and persistentvomiting. Will repeat his labs to be sure his K isnt too low and causing him some of the distress. - CBC NO DIFFERENTIAL; Future - BASIC METABOLIC PANEL; Future 2. Hypokalemia due to excessive gastrointestinal loss of potassium As above. 3. Fever, unspecified fever cause I did not find a cause and patient's temperature was normal without intervention on last check. Advised to go to Urgent care if it returns and persists/localizes. Otherwise, will follow up with labs once complete. Plan As above. Author: Smith Benedict MD 10/01/2019 16:16 documented in this encounter Plan of Treatment Date Type Specialty Care Team Description 10/02/2019 Lab Internal Medicine 10/08/2019 Office Visit Gastroenterology Maria Antonia Florian MD [address] [place] [address] [phone] Name Type Priority Associated Diagnoses Order Schedule CBC NO DIFFERENTIAL Lab Routine Vomiting, intractability of Expected: 10/01 vomiting not specified, (Approximate), presence of nausea not Expires: 10/01/2020 specified, unspecified vomiting type BASIC METABOLIC PANEL Lab Routine Vomiting, intractability of Expected: 03/2019 vomiting not specified, (Approximate), presence of nausea not Expires: 10/01/2020 specified, unspecified vomiting type Health Maintenance Due Date Last Done Comments HIV SCREENING 1974 HEPATITIS C SCREENING 1999 LIPID DISORDER SCREENING 03/24/2009 03/24/2004 COLONOSCOPY SCREENING 2009 ZOSTER IMMUNIZATION SERIES (1 2009 of 2) DEPRESSION SCREENING 09/17/2020 09/17/2019 INFLUENZA VACCINE (#1) 2020 Postponed from 07/28/2019 (Patient refused) DIABETES SCREENING 09/25/2020 09/25/2019, 09/03/2019, 08/18/2019 HPV IMMUNIZATION SERIES Aged Out No [...] filedocumented in this encounter Visit Diagnoses Diagnosis Vomiting, intractability of vomiting not specified, presence of nausea not specified, unspecified vomiting type - Primary Hypokalemia due to excessive gastrointestinal loss of potassium Fever, unspecified fever cause documented in this encounter Insurance Payer Benefit Plan / Subscriber ID Effective Dates Phone Address Type Group [place] xxxxxxxx 2019-Present [place] documented as of this encounter
--- OUTSIDE RECORDS SUMMARY | 2019-11-10 08:50 | XMS REPORT | Summary of Care ---
:1960 Author Organization [facility] Address [address] [facility] [place] [address] Care Team Providers Name Role Phone None, [place] Primary Care Provider Unavailable Reason for Visit Reason Comments Follow Up 2 week f/u, still not keeping anything down-mostly at night Encounter Details Date Type Department Care Team Description 10/08/2019 Office Visit Maria Antonia Soares MD Aspiration pneumonia Gastroenterology/Hepa [address] [place] [address] gastric secretions, [address] [phone] [place] [address] lung ([facility]) (Primary [phone] Dx) Allergies Active Allergy Reactions Severity Noted Date Comments Compazine HEEL PRICKER Reaction 08/18/2019 Metoclopramide HEEL PRICKER Reaction 08/18/2019 documented as of this encounter (statuses as of 10/08/2019) Medications Medication Sig Dispensed Refills Start Date [...] to gastric secretions, unspecified part of lung ([facility]) Hospital, Clinic, or Other Ordered Dose Route Frequency Start Date End Date Status Facility Administered Medication normal saline IVIndications: IV CONTINUOUS 09/03/2019 Active Vomiting and diarrhea documented as of this encounter (statuses as of 10/08/2019) Active Problems Problem Noted Date Aspiration pneumonia of both lungs due to gastric secretions 09/25/2019 documented as of this encounter (statuses as of 10/08/2019) Social History Tobacco Use Types Packs/Day Years [...] Sign Reading Time Taken Comments Blood Pressure 128/86 10/08/2019 1:02 PM EST Pulse 83 10/08/2019 1:02 PM EST Temperature 36.2 10/08/2019 1:02 PM EST C (97.1 F) Respiratory Rate - - Oxygen Saturation 98% 10/08/2019 1:02 PM EST Inhaled Oxygen Concentration - - Weight 79.1 kg (174 lb 4.8 oz) 10/08/2019 1:02 PM EST Height 174 cm (5' 8.5") 10/08/2019 1:02 PM EST Body Mass Index 26.12 10/08/2019 1:02 PM EST documented in this encounter Patient Instructions Patient InstructionsKiMaria Antonia landrum MD - 10/08/2019 1:15 PM EST1. Let me know how things go with your appointment with Dr. Salazar. We will determine next steps based on his recommendations. Maria Antonia Florian MD documented in this encounter Progress Notes Maria Antonia Florian MD - 10/08/2019 1:15 PM EST PATIENT: David Beck : 1960 DATE OF SERVICE: 10/08/2019 REFERRING PRACTITIONER: Maria Antonia Florian PRIMARY CARE PROVIDER: None, [place] CHIEF COMPLAINT: Regurgitation/aspiration pneumonia Subjective HISTORY OF PRESENT ILLNESS: David Beck is a 58-y.o. male who presents for follow up of recent EGD to determine cause of recurrent aspiration pneumonia. Patient has history of gastric banding, and at time of endoscopy, the stricture imposed by the band has resulted in stasis of solid food in the fundus of the stomach, whichrefluxes and causes aspiration. Patient's surgeon is no longer in practice , and it was recommended that he follow up with a bariatric surgeon. He elected to see Dr. Jalen Salazar, with whom he is scheduled this afternoon. 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 Current Outpatient Medications Medication Sig pantoprazole (PROTONIX) 40 MG Oral Tab EC Take 1 Tab by mouth BEFORE BREAKFAST. potassium chloride (K-TAB) 10 MEQ Oral Tab CR Take 2 Tabs by mouth TWICE DAILY. Current Facility-Administered Medications Medication normal saline IV Allergies Allergen Reactions Compazine HEEL PRICKER Reaction Reglan [Metoclopramide] HEEL PRICKER Reaction Social History Socioeconomic History Marital status: [...] file Gets together: Not on file Attends anglican service: Not on file Active member of [...] of present illness/subjective. Objective PHYSICAL EXAMINATION: VITALS: GENERAL: alert, oriented, no acute distress. HEENT: No scleral icterus, MMM Psych: Affect normal Neck: no lymphadenopathy LUNGS: clear to auscultation bilaterally. HEART: regular rhythm, no murmurs, no gallops, no rubs. ABDOMEN: general exam: soft, non-tender, non-distended, without masses or organomegaly, normal active bowel sounds, Roberson's sign negative. Extrmities: no edema Skin: clear Neuro: gait normal, a&o x 3 RECTAL: exam deferred. 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 Plan PLAN: Pending surgical opinion. Gastric emptying study ordered. Follow up: Schedule follow-up here as needed if symptoms worsen. Author: Maria Antonia Florian MD 10/08/2019 11:51 documented in this encounter Plan of Treatment Health Maintenance Due Date Last Done Comments HIV SCREENING 1974 HEPATITIS C SCREENING 1999 LIPID DISORDER SCREENING 03/24/2009 03/24/2004 COLONOSCOPY SCREENING 2009 ZOSTER IMMUNIZATION SERIES 2009 (1 of 2) DEPRESSION SCREENING 09/17/2020 09/17/2019 INFLUENZA VACCINE (#1) 2020 Postponed from 07/28/2019 (Patient refused) DIABETES SCREENING 10/02/2020 10/02/2019, 09/25/2019, 09/03/2019, Additional history exists HPV IMMUNIZATION SERIES Aged Out No longer eligible based on patient's age to complete this topic MENINGOCOCCAL VACCINE IMM Aged Out No longer eligible based on patient's age to complete this topic PNEUMOCOCCAL 0-64 YRS Aged Out No longer eligible based on patient's age to complete this topic documented as of this encounter Results Not on filedocumented in this encounter Visit Diagnoses Diagnosis Aspiration pneumonia of both lungs due to gastric secretions, unspecified part of lung (HCC) - Primary documented in this encounter Insurance Payer Benefit Plan / Subscriber ID Effective Dates Phone Address Type Group [place] xxxxxxxx 2019-Present [place] documented as of this encounter
--- OUTSIDE RECORDS SUMMARY | 2019-11-10 08:50 | XMS REPORT | Summary of Care ---
:1960 Author Organization [facility] Address [address] [facility] [place] [address] Care Team Providers Name Role Phone None, [place] Primary Care Provider Unavailable Reason for Visit Reason Comments Emesis would like zofran Encounter Details Date Type Department Care Team Description 10/23/2019 Office Visit Maggie Juarez, Vomiting, intractability Practice [facility] PICKER of vomiting not [address] [place], [place] [address] nausea not specified, unspecified vomiting [phone] type (Primary Dx) (Fax) Allergies Active Allergy Reactions Severity Noted Date Comments Compazine RIDING COACH Reaction 08/18/2019 Metoclopramide RIDING COACH Reaction 08/18/2019 documented as of this encounter (statuses as of 10/23/2019) Medications Medication Sig Dispensed Refills Start Date End Date Status potassium chloride Take 2 Tabs by 120 Tab 0 09/18/2019 Active (K-TAB) 10 MEQ Oral Tab mouth TWICE CR DAILY. pantoprazole (PROTONIX) Take 1 Tab by 30 Tab 6 10/16/2019 Active 40 MG Oral Tab mouth BEFORE ECIndications: BREAKFAST. Gastroesophageal reflux disease with esophagitis, Aspiration pneumonia of both lungs due to gastric secretions, unspecified part of lung (HCC) ondansetron (ZOFRAN) 4 MG Take 4 mg by 18 Tab 0 10/23/2019 Active Oral TabIndications: mouth EVERY Vomiting, intractability EIGHT HOURS of vomiting not NEEDED specified, presence of (nausea). nausea not specified, unspecified vomiting type Hospital, Clinic, or Other Ordered Dose Route Frequency Start Date End Date Status Facility Administered Medication normal saline IVIndications: IV CONTINUOUS 09/03/2019 Active Vomiting and diarrhea documented as of this encounter (statuses as of 10/23/2019) Active Problems Problem Noted Date Aspiration pneumonia of both lungs due to gastric secretions 09/25/2019 documented as of this encounter (statuses as of 10/23/2019) Social History Tobacco Use Types Packs/Day Years [...] Sign Reading Time Taken Comments Blood Pressure 118/58 10/23/2019 10:40 AM EST Pulse 86 10/23/2019 10:40 AM EST Temperature - - Respiratory Rate - - Oxygen Saturation 99% 10/23/2019 10:40 AM EST Inhaled Oxygen Concentration - - Weight 80.3 kg (177 lb) 10/23/2019 10:40 AM EST Height - - Body Mass Index 26.52 10/08/2019 1:02 PM EST documented in this encounter Patient Instructions Patient InstructionsMaggie Alvarenga FNP - 10/23/2019 10:40 AM ESTLight diet - liquids may be easier Zofran as directed 10 :48 AM EST documented in this encounter Progress Notes Maggie Alvarenga FNP - 10/23/2019 10:40 AM EST PATIENT: David Beck : 1960 DATE OF SERVICE: 10/23/2019 CHIEF COMPLAINT: Chief Complaint Patient presents with Emesis would like zofran Subjective HISTORY OF PRESENT ILLNESS: David Beck is a 58-y.o. male. Emesis Pertinent negatives include no chills and no fever. Pt called this AM to see if PCP thought Zofran would help him - was told he needed to be seen. Pt states he has used Zofran in the past with some success. 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 Current Outpatient Medications Medication Sig ondansetron (ZOFRAN) 4 MG Oral Tab Take 4 mg by mouth EVERY EIGHT HOURS NEEDED (nausea). pantoprazole (PROTONIX) 40 MG Oral Tab EC Take 1 Tab by mouth BEFORE BREAKFAST. potassium chloride (K-TAB) 10 MEQ Oral Tab CR Take 2 Tabs by mouth TWICE DAILY. Current Facility-Administered Medications Medication normal saline IV Allergies Allergen Reactions Compazine RIDING COACH Reaction Reglan [Metoclopramide] RIDING COACH Reaction Social History Socioeconomic History Marital status: [...] file Gets together: Not on file Attends islam service: Not on file Active member of [...] Review of Systems Constitutional: Negative for chills, fever and malaise/fatigue. Gastrointestinal: Positive for vomiting. Negative for nausea. Persistent vomiting Objective PHYSICAL EXAM: VITALS: BP 118/58 | Pulse 86 | Wt 177 lb (80.3 kg) | SpO2 99% | BMI 26.52 kg/m Body mass index is 26.52 kg/m. Physical Exam Constitutional: Appearance: Normal appearance. HENT: Head: Normocephalic and atraumatic. Skin: General: Skin is warm and dry. Capillary Refill: Capillary refill takes less than 2 seconds. Coloration: Skin is not pale. Neurological: Mental Status: He is alert and oriented to person, place, and time. Discussed medications - advised pt I Am not sure that Alejandro will help but he can try it ASSESSMENT / IMPRESSION: ICD-9-CM ICD-10-CM 1. Vomiting, intractability of vomiting not specified, presence of nausea not specified, unspecifiedvomiting type 787.03 R11.10 ondansetron (ZOFRAN) 4 MG Oral Tab Plan Light diet - liquids may be easier Zofran as directed Author: OSCAR Tang 10/23/2019 10:54 documented in this encounter Plan of Treatment Date Type Specialty Care Team Description 11/05/2019 Office Visit General Surgery Sonali Hurley MD [address] [place] [id number] [phone] Health Maintenance Due Date Last Done Comments HIV SCREENING 1974 HEPATITIS C SCREENING 1999 LIPID DISORDER SCREENING 03/24/2009 03/24/2004 Colonoscopy 2009 ZOSTER IMMUNIZATION SERIES 2009 (1 of [...] not specified, unspecified vomiting type - Primary documented in this encounter Insurance Payer Benefit Plan / Subscriber ID Effective Dates Phone Address Type Group [facility] xxxxxxxxxxx 2019-Present [place] documented as of this encounter"
[2019-11-10 09:03] LABS: ABS Basophils 0.1 10^3/ul (0-0.2); ABS Eosinophils 0.1 10^3/ul (0-0.6); ABS Monocytes 0.5 10^3/ul (0-0.8); ABS Neutrophils 6.6 10^3/ul (1.5-7.7); Eosinophil % 1.2 %; Hematocrit 36 % (42-52); Hemoglobin 12.1 g/dL (14.0-18.0); Mean Corpuscular HGB Conc 33 g/dL (31-36); Mean Corpuscular Hemoglobin 29 pg (27-31); Mean Corpuscular Volume 87 fL (80-94); Mean Platelet Volume 7.1 fL (7.4-10.4); Platelet Count 317 10^3/uL (150-450); Red Blood Count 4.17 10^6 /uL (4.18-5.48); Red Cell Distribution Width 16 % (10-15); White Blood Count 8.2 10^3/uL (3.5-10.8)
[2019-11-10 09:18] LABS: Albumin 3.1 g/dL (3.2-5.2); Albumin/Globulin Ratio 0.9 (1-3); BUN/Creatinine Ratio 6.7 (8-20); Calcium 8.9 mg/dL (8.6-10.3); EGFR African American 104.2 (>60); EGFR Non-African American 86.1 (>60); Globulin 3.4 g/dL (2-4); Total Bilirubin 0.7 mg/dL (0.2-1.0); Total Protein 6.5 g/dL (6.4-8.9)
[2019-11-10] MEDS ORDERED: Iohexol 300* (CONTRAST) 10 ML SDV IV ONE (10:06)
[2019-11-10 11:59] VITALS: BP 132/91
== END 2019-11-10 11:59 | disposition home or self-care (01) ==
LOC: ED 08:25
DX: R10.13 Epigastric pain (principal); R11.2 Nausea with vomiting, unspecified; R50.9 Fever, unspecified; I70.0 Atherosclerosis of aorta; K57.30 Diverticulosis of large intestine without perforation or abscess without bleeding; Z98.84 Bariatric surgery status; Z90.49 Acquired absence of other specified parts of digestive tract; Z88.8 Allergy status to other drugs, medicaments and biological substances
CPT/HCPCS: 36415; 74177; 80053; 83690; 85025; 96361; 96374; 99283; J2405; Q9967

== ENCOUNTER 2019-11-30 07:19 | Emergency (ER) | payer OTHER ==
[2019-11-30] MEDS ORDERED: NS 0.9% 1000 ML** 1,000 ML IV ONE (07:33)
--- NOTE | 2019-11-30 07:38 | ED ---
Influenza-Like Illness - HPI Summary HPI Summary: Pt. is a 59 y.o male who presents to the ER for productive cough, fever, dizzy , syncope. Pt. states he started with cough and fever yesterday. States oral temp at home was 101F. 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 Pt. notes he woke with a fever early this morning and took a shower. Pt. states he got out of the shower and was coughing a lot. Pt. states he was coughing and felt dizzy and woke up on the floor. Pt. denies prior chest pain or SOB. Pt. notes hx of gastric bypass and states he currently has a blockage in his pouch and is due to have sxs at [place] next week. Pt. states he has had aspiration pneumonia in the past secondary to pouch malfunction and is states sxs feel similar today. Sxs are moderate in severity. Otherwise negative past hx. No current modifying factors. - History of Current Complaint Chief Complaint: EDAbdPain Time Seen by Provider: 11/30/19 07:25 Hx Obtained From: Patient - Allergy/Home Medications Allergies/Adverse Reactions: Allergies Allergy/AdvReac Type Severity Reaction Status Date / Time metoclopramide [From Reglan] Allergy Hallucinati Verified 11/30/19 07:23 ons prochlorperazine Allergy See Comment Verified 11/30/19 07:23 [From Compazine] PMH/Surg Hx/FS Hx/Imm Hx Previously Healthy: Yes Endocrine/Hematology History: Denies: Hx Diabetes Cardiovascular History: Denies: Hx Hypercholesterolemia, Hx Hypertension Respiratory History: Reports: Hx Pneumonia Denies: Hx Asthma, Hx Chronic Obstructive Pulmonary Disease (COPD) GI History: Reports: Hx Gall Bladder Disease, Other GI Disorders - gastric stapling History: Reports: Hx Kidney Stones Denies: Hx Renal Disease Sensory History: Reports: Hx Contacts or Glasses Denies: Hx Deafness, Hx Hearing Aid Opthamlomology History: Reports: Hx Contacts or Glasses Neurological History: Reports: Other Neuro Impairments/Disorders - guillian [place] Denies: Hx Dementia - Surgical History Surgery Procedure, Year, and Place: Umbilical and inguinal hernia repair 2016. Gastric stapling 1996. gallbladder 1999. 5 skin surgeries Infectious Disease History: No Infectious Disease History: Denies: Traveled Outside the [place] in Last 30 Days - Family History Known Family History: Positive: Other - lung cancer, Non-Contributory Family History: father with lung CA - Social History Occupation: Disabled Lives: Alone Alcohol Use: None Hx Substance Use: No Substance Use Type: Reports: None Hx Tobacco Use: No Smoking Status (MU): Never Smoked Tobacco Have You Smoked in the Last Year: No Review of Systems Positive: Fever, Chills Eyes: Negative Positive: Sore Throat Cardiovascular: Negative Positive: Cough. Negative: Shortness Of Breath Positive: Nausea. Negative: Abdominal Pain, Vomiting, Diarrhea Genitourinary: Negative Skin: Negative Neurological: Negative All Other Systems Reviewed And Are Negative: Yes Physical Exam Triage Information Reviewed: Yes Vital Signs On Initial Exam: Initial Vitals Temp Pulse Resp BP Pulse Ox 98.3 F 94 19 107/81 94 11/30/19 07:20 11/30/19 07:20 11/30/19 07:20 11/30/19 07:20 11/30/19 07:20 Vital Signs Reviewed: Yes Appearance: Positive: Well-Appearing - Pt. sitting up in bed in NAD. Talkative. Skin: Positive: Warm, Dry Head/Face: Positive: Normal Head/Face Inspection Eyes: Positive: Normal, EOMI, TIMOTHY ENT: Positive: Pharynx normal, TMs normal. Negative: Tonsillar swelling, Tonsillar exudate Neck: Positive: Supple, Nontender. Negative: Nuchal Rigidity Respiratory/Lung Sounds: Positive: Clear to Auscultation, Breath Sounds Present Cardiovascular: Positive: Normal, RRR Abdomen Description: Positive: Nontender, Soft Neurological: Positive: Normal, Alert, Oriented to Person Place, Time, CN Intact II-III Psychiatric: Positive: Affect/Mood Appropriate Procedures - Sedation Patient Received Moderate/Deep Sedation with Procedure: No Diagnostics - Vital Signs Vital Signs Temp Pulse Resp BP Pulse Ox 11/30/19 07:20 98.3 F 94 19 107/81 94 - Laboratory Result Diagrams: 11/30/19 07:42 11/30/19 07:42 Lab Statement: Any lab studies that have been ordered have been reviewed, and results considered in the medical decision making process. Flu Symptom Course/Dx - Course Course Of Treatment: Pt. presenting with productive cough and syncopal episode after coughing. He is afebrile and nontoxic appearing. ECG done at 0811 shows a sinus rhythm of 77bpm, normal axis, no ST elevation or depression. Labs show leukocytosis of 13. Labs otherwise unremarkable. CXR per radiology: IMPRESSION : Airspace disease in the right lower lobe and possibly the left base suggestive. of right lower lobe pneumonia and possible left basilar pneumonia. Given pt.'s recent vomiting will treat for possible aspiration pneumonia with augmentin. Pt. tolerating PO fluids. Pt. ambulatory in ER without difficulty. Results discussed> pt. comfortable with dc home. To f.u with pcp on monday for recheck. Will return to er over weekend if sxs change or worsen. Pt. understands and agrees with plan. - Diagnoses Differential Diagnosis/HQI/PQRI: Positive: Bronchitis, Influenza, Pneumonia Provider Diagnoses: Pneumonia Discharge ED - Sign-Out/Discharge Documenting (check all that apply): Patient Departure - Discharge Plan Condition: Improved Disposition: HOME Prescriptions: Amoxicillin/Clavulanate TAB* [Augmentin TAB 875*] 875 mg PO BID 10 Days #20 tab Patient Education Materials: Bacterial Pneumonia (ED) Referrals: Maria Antonia Florian MD [Primary Care Provider] - Additional Instructions: Schedule a follow up appointment with your PCP for Monday Take antibiotic as directed Increase fluids and rest Tylenol or Motrin for fever and pain as directed Return to ER if symptoms change or worsen - Billing Disposition and Condition Condition: IMPROVED Disposition: Home - Attestation Statements Provider Attestation: I was available for consult. This patient was seen by the ADIEL. The patient was not presented to, seen by, or examined by me. Vijay Herrera MD
[2019-11-30 07:55] LABS: ABS Basophils 0.1 10^3/ul (0-0.2); ABS Lymphocytes 0.5 10^3/ul (1.0-4.8); ABS Monocytes 0.6 10^3/ul (0-0.8); ABS Neutrophils 12.4 10^3/ul (1.5-7.7); Eosinophil % 0.1 %; Hematocrit 35 % (42-52); Hemoglobin 11.9 g/dL (14.0-18.0); Lymphocyte % 3.6 %; Mean Corpuscular HGB Conc 34 g/dL (31-36); Mean Corpuscular Hemoglobin 30 pg (27-31); Mean Corpuscular Volume 87 fL (80-94); Mean Platelet Volume 7.2 fL (7.4-10.4); Nucleated Red Blood Cells % 0.1; Platelet Count 292 10^3/uL (150-450); Red Blood Count 4.05 10^6 /uL (4.18-5.48); Red Cell Distribution Width 15 % (10-15); White Blood Count 13.6 10^3/uL (3.5-10.8)
[2019-11-30 08:17] LABS: Albumin 3.2 g/dL (3.2-5.2); Albumin/Globulin Ratio 0.9 (1-3); BUN/Creatinine Ratio 7.8 (8-20); Calcium 8.9 mg/dL (8.6-10.3); EGFR African American 77.7 (>60); EGFR Non-African American 64.2 (>60); Globulin 3.4 g/dL (2-4); Magnesium 1.9 mg/dL (1.9-2.7); Potassium 3.5 mmol/L (3.5-5.0); Total Bilirubin 0.6 mg/dL (0.2-1.0); Total Protein 6.6 g/dL (6.4-8.9); Troponin I 0.01 ng/mL (<0.03)
--- OUTSIDE RECORDS SUMMARY | 2019-11-30 08:22 | XMS REPORT | Summary of Care ---
:1960 Author Organization [facility] Address [address] [place] [address] Care Team Providers Name Role Phone None, [place] Primary Care Provider Unavailable Reason for Visit Reason Comments Hematemesis Fever Auth/Cert Status Reason Specialty Diagnoses / Procedures Referred By Contact Referred To Contact Encounter Details Date Type Department Care Team Description 11/11/2019 - Hospital Encounter [facility] 7 Toney Ken MD [address] [address] Inpatient 11/14/2019 1 Sonali Schultz MD [address] [address] [address] [address] Allergies Active Allergy Reactions Severity Noted Date Comments Compazine ROAD OILER Reaction 08/18/[address] OILER Reaction 08/18/2019 documented as of this encounter (statuses as of 11/15/2019) Medications Medication Sig Dispensed Refills Start Date [...] (ZOFRAN) 4 MG Take 4 mg by 30 Tab 0 11/04/2019 Active Oral TabIndications: mouth EVERY Vomiting, intractability EIGHT HOURS of vomiting not NEEDED specified, presence of (nausea). nausea not specified, unspecified vomiting type, Hx of laparoscopic gastric banding ondansetron (ZOFRAN) 4 MG Take 1 Tab by 60 Tab 0 11/14/2019 Active Oral TABLET DISPERSIBLE mouth EVERY SIX HOURS NEEDED (nausea). Hospital, Clinic, or Other Ordered Dose Route Frequency Start Date End Date Status Facility Administered Medication normal saline IVIndications: IV CONTINUOUS 09/03/2019 Active Vomiting and diarrhea documented as of this encounter (statuses as of 11/15/2019) Active Problems Problem Noted Date Aspiration pneumonia of both lungs due to gastric secretions 09/25/2019 documented as of this encounter (statuses as of 11/15/2019) Social History Tobacco Use Types Packs/Day Years [...] Sign Reading Time Taken Comments Blood Pressure 113/68 11/14/2019 9:30 AM EST Pulse 59 11/14/2019 9:30 AM EST Temperature 36.9 11/14/2019 9:30 AM EST C (98.5 F) Respiratory Rate 20 11/14/2019 9:30 AM EST Oxygen Saturation 96% 11/14/2019 9:30 AM EST Inhaled Oxygen Concentration - - Weight 82.2 kg (181 lb 4 oz) 11/13/2019 6:00 AM EST Height 172.7 cm (5' 8") 11/11/2019 1:53 PM EST Body Mass Index 27.56 11/11/2019 1:53 PM EST documented in this encounter Discharge Summaries Julienne Brennan MD - 11/14/2019 10:02 AM EST [facility] [address]. [id number] Discharge Summary Patient ID: David Beck [id number] 59-y.o. 1960 Admission date: 11/11/2019 Discharge date: 11/14/2019 Admitting Physician: Sonali Hurley MD Indication for Admission: Pneumonia [J18.9] Principal Diagnosis: Aspiration pneumonia of both lungs due to gastric secretions (HCC) Other medical problems managed in the hospital: Principal Problem: Aspiration pneumonia of both lungs due to gastric secretions (HCC) Discharged Condition: Stable, good Hospital Course: David Beck is a 59-y.o. male admitted on 11/11/2019 With persistent nausea and emesis as well as occasional hematemesis. He has a hx of VBG done 20 years ago at OSH in [place]. There was some concern that he also had pneumonia. On arrival, patient was made NPO, given antiemetics and started on IV abx, given IV hydration. An EGD was performed which showed small amount of food in stomach with narrowing 4-5 cm beyond GE jxn, likely from lap band. A UGI study was also done, which showed similar narrowing of the stomach c /w his prior surgery and contrast passage to duodenum. The patient had resolution of nausea and abdominal pain. He was advanced to a soft diet and was able to tolerate this without issue. He was appropriate for discharge to home, tolerating diet, pain controlled, ambulating and voiding, on 11/14/2019. He will go with additional Zofran PRN. He will follow up in clinic at the beginning ofJanuary to discuss surgical options for reversal of his VBG. Detailed discharge instructions were provided and the patient verbalized understanding. Consults: CONSULT TO GENERAL SURGERY Treatments: Analgesia Antibiotics VTE prophylaxis IV hydration Procedures: Xr Upper Gi Series W/kub Result Date: 11/13/2019 Procedure(s): XR UPPER GI SERIES W/KUB Date of service: 11/13/2019 8:20 AM Provided clinical information: 59 years, Male, "history of gastric stapling surgery at [facility] in 1997. Reflux, vomiting, mid upper abdominal pain and weight loss for approximately 3 months. Procedure and materials: Limited single contrast upper GI series was performed with Omnipaque 300 Radiation exposure: 1 minute of fluoroscopy. DAP: 2138.45 microGy/m2 Comparison studies: CT abdomen and pelvis performed November 11, 2019 Observations: [employer] Equipment [employer] view of the abdomen demonstrates a nonobstructive bowel gas pattern.Visualized lung bases are unremarkable. Surgical aftab are seen in the left upper quadrant of the abdomen. No surgical aftab are seen in the region of the mid or lower abdomen. There are no pathologic intra-abdominal calcifications identified. There is no acute osseous abnormality. The patient wasplaced in the upright position on the fluoroscopic table. The patient ingested Omnipaque 300 under direct fluoroscopic visualization. The esophagus is normal in appearance. Expected postsurgical diminished gastric volume is noted. No extravasation of contrast outside the stomach is identified. There is no gastric outlet obstruction. However, there is stenosis at the distal aspect of the postsurgical region of the stomach. Contrast was seen to pass into the duodenum. The ligament of Treitz is normally positioned. It should be noted that the patient was under the impression that have undergone a Jonathan-en-Y bypass , but the CT is not consistent with Jonathan-en-Y bypass, and appears, instead, to demonstrate a vertical banded gastroplasty. 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 Correlation with surgical history from [facility] maybe helpful. Stenosis at the distal aspect of the postsurgical stomach. Contrast passes into the duodenum. Statuspost gastric stapling (1997) with expected postsurgical diminished gastric volume. No extraluminal extravasation was identified. Correlate with surgical history from [facility] in [facility] discussed above. Dr. Taylor Sosa MD, MFA, was present and available throughout the exam. I, Dr. Taylor Sosa, have read the preliminary report and I, Dr. Taylor Sosa, agree with the findings. Taylor Sosa MD, MFA has reviewed the images and preliminary report. Signed by Taylor Sosa MD, MFA on 11/13/2019 11:[address] Abdomen Pelvis With Iv Contrast Result Date: 11/11/2019 Procedure(s): CT ABDOMEN PELVIS WITH IV CONTRAST Date of service: 11/11/2019 10: 15 AM Provided clinical information: 59 years, Male, "Gastric stapling 20 years ago, now presenting with recurrent nauseaand vomiting postprandially, upper GI series and scans from [place] demonstrates partial or complete obstruction of the gastric outlet from the former gastric stapling, presenting with worsening nausea and vomiting and abdomina pain" Procedure and materials: Multiple helically acquired axial CT images were obtained through the abdomen and pelvis. Sagittal and coronal reformatted images were created shayy separate workstation. Contrast: 100 mL intravenous Omnipaque 350 was administered. Comparison studies: 08/18/2019. Observations: Lung bases: There are subtle questionable infiltrates in the bilaterallung bases versus hypoventilatory change. There is fluid in the esophagus which appears mildly distended. Atelectasis in the bilateral lung bases. Liver, biliary system, pancreas, spleen , and adrenal glands: Liver is unremarkable. Gallbladder is surgically absent. No intrahepatic or extrahepatic biliary ductal dilation. Pancreas is unremarkable. Spleen is unremarkable. Adrenal glands are unremarkable. Kidneys: No stone. No solid mass, hydronephrosis, or hydroureter. Bladder: Unremarkable. Bowel: The patient is status post gastric surgery, apparently a type of gastric stapling. Evaluation of the stomach and bowel is limited due to the lack of oral contrast. Stomach wall is thickened proximal to the region of the aftab. The region distal to the stapling appears unremarkable. No obstruction. Residual oral contrast is seen in the colon, likely from known recent prior CT scan at another facility. Normal appendix. Aorta: No abdominal aortic aneurysm. Lymph nodes: No significant mesenteric, retroperitoneal, or pelvic lymphadenopathy. Pelvis: No pelvic mass. Bones and soft tissues: No suspicious lesions. Multilevel degenerative changes noted in the spine. Soft tissues are unremarkable. Additional findings: Small fat-containing umbilical hernia. Linear calcification in a horizontal orientation in the lower abdomen fascia, probably chronic sequela from prior surgery at this location. Similarcalcifications are seen in the upper abdomen fascia. Small bilateral fat- containing inguinal hernias. The left hernia demonstrates surrounding stranding , likely indicating inflammatory change. 1. Thickening of the postsurgical stomach wall. Direct observation with EGD may be of benefit. 2. Possible bilateral early infiltrates in the lung bases versus hypoventilatory change. 3. Inflammatory change about the left fat- containing inguinal hernia. Correlate for focal tenderness. Signed by Taylor Sosa MD, MFA on 11/11/2019 11:[address] ABDOMEN PELVIS WITH IV CONTRAST XR CHEST 2 VIEW PA AND LATERAL (STANDARD) XR UPPER GI SERIES W/KUB Operations: ENDOSCOPY UPPER GI Complications: None Medications: Current Discharge Medication List START taking these medications ondansetron 4 MG Tbdp Commonly known as: ZOFRAN Dose: 4 mg Quantity: 60 Tab Refills: 0 Take 1 Tab by mouth EVERY SIX HOURS NEEDED (nausea). CONTINUE these medications which have NOT CHANGED ondansetron 4 MG Tabs Commonly known as: ZOFRAN Dose: 4 mg Quantity: 30 Tab Refills: 0 Take 4 mg by mouth EVERY EIGHT HOURS NEEDED (nausea). pantoprazole 40 MG Tbec Commonly known as: PROTONIX Dose: 40 mg Quantity: 30 Tab Refills: 6 Take 1 Tab by mouth BEFORE BREAKFAST. potassium chloride 10 MEQ Tbcr Commonly known as: K-TAB Dose: 20 mEq Quantity: 120 Tab Refills: 0 Take 2 Tabs by mouth TWICE DAILY. Where to Get Your Medications These medications were sent to [facility] [address] [facility] [address] [id number] ondansetron 4 MG Tbdp Oxygen or Positive Pressure Devices: None Patient Instructions: Activity/Restrictions: activity as tolerated Skin/Wound Care: none Discharge Diet: diet as tolerated, soft diet. Be sure to chew your food very well before swallowing Special Instructions: You may take Zofran as needed to help with nausea. This was sent to the [facility] pharmacy If you have worsening abdominal pain, nausea, vomiting, difficulty tolerating food or liquids, fevers or chills, please call the clinic or come to the ER. Please call the bariatric clinic with any questions or concerns Please follow up in the clinic with Dr. Hurley on 12/10/19 for post hospital visit Total duration of time spent: 30 minutes. Provider Signature: Julienne Brennan MD Attending: Sonali Hurley MD Date and Time: 11/14/2019 10:02 documented in this encounter Discharge Instructions Rachele Bailey RN - 11/14/2019Provider's Instructions Reason for Admission or Diagnosis:Aspiration pneumonia of both lungs due to gastric secretions (HCC) Activity/Restrictions: activity as tolerated Skin/Wound Care: none Discharge Diet: diet as tolerated, soft diet. Be sure to chew your food very well before swallowing Special Instructions: You may take Zofran as needed to help with nausea. This was sent to the [facility] pharmacy If you have worsening abdominal pain, nausea, vomiting, difficulty tolerating food or liquids, fevers or chills, please call the clinic or come to the ER. Please call the bariatric clinic with any questions or concerns Please follow up in the clinic with Dr. Hurley on 12/10/19 for post hospital visit Discharge Provider: Julienne Brennan MD Attending: Sonali Hurley MD Time: 09:51 Nurse's Instructions Problems to report to your Physician: Excessive pain or discomfort Fever > 100.5 degrees Difficulty breathing Increase or smell in wound drainage *Please Return Patient Satisfaction Survey* documented in this encounter Progress Notes Julienne Brennan MD - 11/14/2019 7:38 AM EST [facility] [address] [place] [id number] General Surgery Progress Note Date of Service: 11/14/2019 Patient: David Marcos #: [id number] Attending: SONALI HURLEY MD ,MD Subjective: No acute events overnight. Abdominal pain and nausea has improved since admission. Tolerating diet. Passing flatus, afebrile. Physical: Objective: Blood pressure 112/61, pulse 69, temperature 98.6 F (37 C), temperature source Temporal, resp. rate 20, height 5' 8" (1.727 m), weight 181 lb 4 oz (82.2 kg), SpO2 95 %. I/O: Date 11/13/19 07 - 11/14/19 0659 11/14/19 0700 - 11/15/19 0659 Shift 3815-4728 8416-1833 2672-9734 24 Hour Total 6035-4873 0436-8229 9906-0436 24 Hour Total INTAKE P.O. 240 600 840 I.V.(mL/kg/hr) 85.3(0.13) 85.3(0.04) Shift Total(mL/kg) 240(2.92) 685.3(8.34) 925.3(11.25) OUTPUT Urine(mL/kg/hr) 600(0.91) 1350(2.05) 2200(3.34) 4150(2.1) Shift Total(mL/kg) 600(7.3) 1350(16.42) 2200(26.76) 4150(50.48) Weight (kg) 82.21 82.21 82.21 82.21 82.21 82.21 82.21 82.21 General: alert, no distress, oriented times 3 Lungs: unlabored respirations on room air Abd: Soft, mild epigastric tenderness, no rebound or guarding Data: Recent Labs 11/11/19 0936 11/12/19 0334 11/13/19 0522 WBC 14.50* 6.28 3.74* HGB 12.3* 10.5* 10.9* HCT 37.4* 32.5* 33.9* PLAT 284 220 260 Recent Labs 11/11/19 0936 11/12/19 0333 11/13/19 0522 NA 137 136 137 K 3.5 3.3* 3.8 CL 101 103 104 CO2 26 29 28 GLUCOSE 85 70 80 BUN 5* 6* 4* CREATININE 0.9 0.9 0.9 CALCIUM 9.0 8.2* 8.5 EGFR >60 >60 >60 Magnesium Date Value Ref Range Status 11/13/2019 2.1 1.6 - 2.3 MG/DL Final Assessment/Plan: David Beck is a 59-year-old man ~20 years s/p vertical band gastrectomy 4 to 5 months of persistent nausea and vomiting with reports of mild hematemesis over the last few days prior to presentation. PPD 2 s/p EGD. - Continue Protonix and Carafate - Continue antiemetics - Analgesia PRN - Daily banana bags - IVF - mechanical soft diet - DVT ppx -Upper GI series yesterday shows narrowed stomach with VBG configuation, with contrast passage to duodenum. Problems: DVT Prophylaxis: heparin and venodynes GI Prophylaxis: protonix and carafate Nutrition: mechanical soft diet Perez remains in place for the following reason(s): No perez present Author: Julienne Brennan MDElectronically signed by Sonali Hurley MD at 2018 11:38 AM Smith rGubbs MD - 11/13/2019 7:11 AM EST [facility] [address] [place] [id number] General Surgery Progress Note Date of Service: 11/13/2019 Patient: David Marcos #: [id number] Attending: SONALI HURLEY MD ,MD Subjective: No acute events overnight. Went for EGD yesterday. Staple line from prior VBG appears intact. Abdominal pain and nausea has improved since admission. He tolerated some jello yesterday without issue. Denies further hemoptysis. Passing flatus, afebrile. Physical: Objective: Blood pressure 132/83, pulse 69, temperature 97.8 F (36.6 C) , temperature source Temporal, resp. rate 20, height 5' 8" (1.727 m), weight 181 lb 4 oz (82.2 kg), SpO2 97 %. I/O: Date 11/12/19 07 - 11/13/19 0659 11/13/19 07 - 11/14/19 0659 Shift 7088-8382 0994-5917 8045-1713 24 Hour Total 9953-4041 0058-1560 1029-4038 24 Hour Total INTAKE P.O. 600 360 960 I.V.(mL/kg/hr) 600(0.92) 600(0.3) Shift Total(mL/kg) 1200(14.71) 360(4.38) 1560(18.97) OUTPUT Urine(mL/kg/hr) 650(1) 575(0.88) 2675(4.07) 3900(1.98) Shift Total(mL/kg) 650(7.97) 575(7.05) 2675(32.54) 3900(47.44) Weight (kg) 81.56 81.56 82.21 82.21 82.21 82.21 82.21 82.21 General: alert, no distress, oriented times 3 Lungs: unlabored respirations on room air Abd: Soft, mild epigastric tenderness, no rebound or guarding Data: Recent Labs 11/11/19 0936 11/12/19 0334 11/13/19 0522 WBC 14.50* 6.28 3.74* HGB 12.3* 10.5* 10.9* HCT 37.4* 32.5* 33.9* PLAT 284 220 260 Recent Labs 11/11/19 0936 11/12/19 0333 11/13/19 0522 NA 137 136 137 K 3.5 3.3* 3.8 CL 101 103 104 CO2 26 29 28 GLUCOSE 85 70 80 BUN 5* 6* 4* CREATININE 0.9 0.9 0.9 CALCIUM 9.0 8.2* 8.5 EGFR >60 >60 >60 Magnesium Date Value Ref Range Status 11/13/2019 2.1 1.6 - 2.3 MG/DL Final Assessment/Plan: David Beck is a 59-year-old man ~20 years s/p vertical band gastrectomy 4 to 5 months of persistent nausea and vomiting with reports of mild hematemesis over the last few days prior to presentation. PPD 1 s/p EGD. - Continue Protonix and Carafate - Continue antiemetics - Analgesia PRN - Daily banana bags - IVF - cont Robinson stage 2 diet - DVT ppx -Upper GI series today Problems: DVT Prophylaxis: heparin and venodynes GI Prophylaxis: protonix and carafate Nutrition: robinson stage 2 diet Perez remains in place for the following reason(s): No perez present Author: Julienne Brennan MDElectronically signed by Sonali Hurley MD at 2018 11:38 AM Smith Grubbs MD - 11/12/2019 7:19 AM EST [facility] [address] [id number] General Surgery Progress Note Date of Service: 11/12/2019 Patient: David Marcos #: [id number] Attending: SONALI HURLEY MD ,MD Subjective: No acute events overnight. Feels mostly unchanged from yesterday. Reports continued abdominal and nausea, no emesis. No bowel movement. States he has not eaten in two days. Physical: Objective: Blood pressure 119/73, pulse 52, temperature 96.8 F (36 C), temperature source Temporal, resp. rate 18, height 5' 8" (1.727 m), weight 179 lb 12.8 oz (81.6 kg), SpO2 95 %. I/O: Date 11/11/19 07 - 11/12/19 0659 11/12/19 07 - 11/13/19 0659 Shift 8225-0425 2670-8069 0540-7433 24 Hour Total 4899-6902 0330-7409 3636-7148 24 Hour Total INTAKE I.V.(mL/kg/hr) 1000(1.53) 994.5(1.52) 1994.5(1.02) Shift Total(mL/kg) 1000(12.26) 994.5(12.19) 1993.5(24.46) OUTPUT Urine(mL/kg/hr) 350(0.54) 350(0.18) Shift Total(mL/kg) 350(4.29) 350(4.29) Weight (kg) 81.56 81.56 81.56 81.56 81.56 81.56 81.56 81.56 General: alert, no distress, oriented times 3 Lungs: unlabored respirations on room air Abd: Soft, mild epigastric tenderness, no rebound or guarding Data: Recent Labs 11/11/19 0936 11/12/19 0334 WBC 14.50* 6.28 HGB 12.3* 10.5* HCT 37.4* 32.5* PLAT 284 220 Recent Labs 11/11/19 0936 11/12/19 0333 NA 137 136 K 3.5 3.3* CL 101 103 CO2 26 29 GLUCOSE 85 70 BUN 5* 6* CREATININE 0.9 0.9 CALCIUM 9.0 8.2* EGFR >60 >60 Magnesium Date Value Ref Range Status 11/12/2019 2.2 1.6 - 2.3 MG/DL Final Assessment/Plan: David Beck is a 59-year-old man ~20 years s/p vertical band gastrectomy 4 to 5 months of persistent nausea and vomiting with reports of mild hematemesis over the last few days prior to presentation. We will plan for EGD later today. - Continue Protonix and Carafate - Continue antiemetics - Analgesia PRN - Daily banana bags - IVF - NPO, sips with meds - DVT ppx Problems: DVT Prophylaxis: heparin and venodynes GI Prophylaxis: protonix and carafate Nutrition: NPO and sips Perez remains in place for the following reason(s): No perez present Author: Smith Rod MD Associated attestation - Sonali Hurley MD - 11/12/2019 1:19 PM ESTSurgery Attending Physician Note 11/12/2019 13:19 I personally saw and examined the above-named patient Feeling better s/p IV fluid hydration and IV antiemetics Afebrile, VSS Incisions clean, dry and intact Labs: unremarkable Imaging: CT reviewed Plan: Plan for upper endoscopy this afternoon The patient understood that the risks included, but were not limited to: injury to parts of the digestive tract including the mouth, lips, teeth, tongue, oropharynx, hypopharynx, esophagus, stomach, and small intestine. We discussed the possibility of a missed or unrecognized perforation and subsequent sequelae. The patient also understood that there is a small risk of bleeding related to the upper endoscopy, as well as the possibility of missing an abnormal finding during the procedure. Informed voluntary consent had been obtained previously in the clinic and was reviewed in detail again today. The patient elected to proceed with the aforementioned procedure. Sonali Hurley MD documented in this encounter Plan of Treatment Date Type Specialty Care Team Description 12/03/2019 Office Visit General Surgery Sonali Hurley MD [address] [id number] [phone] Health Maintenance Due Date Last Done Comments DTaP/Tdap/Td Vaccines (1 - 1970 Tdap) HIV SCREENING 1974 HEPATITIS C SCREENING 1999 LIPID DISORDER SCREENING 03/24/2009 03/24/2004 Colonoscopy 2009 ZOSTER IMMUNIZATION SERIES 2009 (1 of 2) DEPRESSION SCREENING 09/17/2020 09/17/2019 INFLUENZA VACCINE (#1) 2020 Postponed from 07/28/2019 (Patient refused) DIABETES SCREENING 11/13/2020 11/13/2019, 11/12/2019, 11/11/2019, Additional history exists HEPATITIS A IMMUNIZATION Aged Out No longer eligible SERIES based on patient's age to complete this topic HPV IMMUNIZATION SERIES Aged Out No longer eligible based on patient's age to complete this topic MENINGOCOCCAL VACCINE IMM Aged Out No longer eligible based on patient's age to complete this topic PNEUMOCOCCAL 0-64 YRS Aged Out No longer eligible based on patient's age to complete this topic documented as of this encounter Procedures Procedure Name Priority Date/Time Associated Comments Diagnosis XR UPPER GI SERIES KANWAL 11/13/2019 9:13 Results for this W/KUB AM EST procedure are in the results section. MAGNESIUM LEVEL Routine 11/13/2019 5:22 Results for this AM EST procedure are in the results section. BASIC METABOLIC PANEL Routine 11/13/2019 5:22 Results for this AM EST procedure are in the results section. CBC NO DIFFERENTIAL Routine 11/13/2019 5:22 Results for this AM EST procedure are in the results section. XR RPH IMAGESTREAM Routine 11/12/2019 4:47 Results for this PM EST procedure are in the results section. ENDOSCOPY UPPER GI Planned Trip to 11/12/2019 4:43 OR PM EST CBC NO DIFFERENTIAL STAT 11/12/2019 3:34 Results for this AM EST procedure are in the results section. TYPE AND SCREEN Routine 11/12/2019 3:33 Results for this AM EST procedure are in the results section. MAGNESIUM LEVEL STAT 11/12/2019 3:33 Results for this AM EST procedure are in the results section. BASIC METABOLIC PANEL STAT 11/12/2019 3:33 Results for this AM EST procedure are in the results section. SIGN PERMIT 11/11/2019 12:00 PM EST XR CHEST 2 VIEW PA STAT 11/11/2019 10:34 Results for this AND LATERAL AM EST procedure are in (STANDARD) the results section. CT ABDOMEN PELVIS STAT 11/11/2019 10:30 Results for this WITH IV CONTRAST AM EST procedure are in the results section. IN PT/ED 12 LEAD EKG STAT 11/11/2019 10:08 Precordial pain Results for this AM EST procedure are in the results section. RAINBOW DRAW RED TOP STAT 11/11/2019 9:46 AM EST RAINBOW LAB HOLD STAT 11/11/2019 9:46 Results for this TUBES AM EST procedure are in the results section. PATIENT TYPE Routine 11/11/2019 9:46 CONFIRMATION AM EST RAINBOW DRAW LIGHT STAT 11/11/2019 9:46 BLUE TOP AM EST CBC WITH DIFFERENTIAL STAT 11/11/2019 9:36 Results for this AM EST procedure are in the results section. LIPASE STAT 11/11/2019 9:36 Results for this AM EST procedure are in the results section. COMPREHENSIVE STAT 11/11/2019 9:36 Results for this METABOLIC PANEL AM EST procedure are in the results section. documented in this encounter Results XR UPPER GI SERIES W/KUB (11/13/2019 9:13 AM EST) Specimen Impressions Performed At Stenosis at the distal aspect of the postsurgical stomach. Contrast passes into the duodenum. Status post gastric stapling (1997) with expected postsurgical diminished gastric volume. No extraluminal extravasation was identified. Correlate with surgical history from [facility] in [place], [place] as discussed above. Dr. Taylor Sosa MD, MFA, was present and available throughout the exam. I, Dr. Taylor Sosa, have read the preliminary report and I, Dr. Taylor Sosa, agree with the findings. Taylor Sosa MD, PRANAYA has reviewed the images and preliminary report. Signed by Taylor Sosa MD, MFA on 11/13/2019 11:24 AM Narrative Performed At Procedure(s): XR UPPER GI SERIES W/KUB Date of service: 11/13/2019 8:20 AM Provided clinical information: 59 years, Male, "history of gastric stapling surgery at [facility] in 1997. Reflux, vomiting, mid upper abdominal pain and weight loss for approximately 3 months. Procedure and materials: Limited single contrast upper GI series was performed with Omnipaque 300 Radiation exposure: 1 minute of fluoroscopy. 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 Visualized lung bases are unremarkable. Surgical aftab are seen in the left upper quadrant of the abdomen. No surgical aftab are seen in the region of the mid or lower abdomen. There are no pathologic intra-abdominal calcifications identified. There is no acute osseous abnormality. The patient was placed in the upright position on the fluoroscopic table. The patient ingested Omnipaque 300 under direct fluoroscopic visualization. The esophagus is normal in appearance. Expected postsurgical diminished gastric volume is noted. No extravasation of contrast outside the stomach is identified. There is no gastric outlet obstruction. However, there is stenosis at the distal aspect of the postsurgical region of the stomach. Contrast was seen to pass into the duodenum. The ligament of Treitz is normally positioned. It should be noted that the patient was under the impression that have undergone a Jonathan-en-Y bypass, but the CT is not consistent with Jonathan-en-Y bypass, and appears, instead, to demonstrate a vertical banded gastroplasty. 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 Correlation with surgical history from [facility] maybe helpful. Procedure Note Interface, Rad Results - 11/13/2019 11:26 AM EST Procedure(s): XR UPPER GI SERIES W/KUB Date of service: 11/13/2019 8:20 AM Provided clinical information: 59 years, Male, "history of gastric stapling surgery at [facility] in 1997. Reflux, vomiting, mid upper abdominal pain and weight loss for approximately 3 months. Procedure and materials: Limited single contrast upper GI series was performed with Omnipaque 300 Radiation exposure: 1 minute of fluoroscopy. 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 Visualized lung bases are unremarkable. Surgical aftab are seen in the left upper quadrant of the abdomen. No surgical aftab are seen in the region of the mid or lower abdomen. There are no pathologic intra-abdominal calcifications identified. There is no acute osseous abnormality. The patient was placed in the upright position on the fluoroscopic table. The patient ingested Omnipaque 300 under direct fluoroscopic visualization. The esophagus is normal in appearance. Expected postsurgical diminished gastric volume is noted. No extravasation of contrast outside the stomach is identified. There is no gastric outlet obstruction. However, there is stenosis at the distal aspect of the postsurgical region of the stomach. Contrast was seen to pass into the duodenum. The ligament of Treitz is normally positioned. It should be noted that the patient was under the impression that have undergone a Jonathan-en-Y bypass, but the CT is not consistent with Jonathan-en-Y bypass, and appears, instead, to demonstrate a vertical banded gastroplasty. 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 Correlation with surgical history from [facility] maybe helpful. IMPRESSION Stenosis at the distal aspect of the postsurgical stomach. Contrast passes into the duodenum. Status post gastric stapling (1997) with expected postsurgical diminished gastric volume. No extraluminal extravasation was identified. Correlate with surgical history from [facility] in [place], [place] as discussed above. Dr. Taylor Sosa MD, PRANAYA, was present and available throughout the exam. I, Dr. Taylor Sosa, have read the preliminary report and I, Dr. Taylor Sosa, agree with the findings. Taylor Sosa MD, CAMRYN has reviewed the images and preliminary report. Signed by Taylor Sosa MD, CAMRYN on 11/13/2019 11:24 AM MAGNESIUM LEVEL (11/13/2019 5:22 AM EST) Magnesium 2.1 1.6 - 2.3 MG/DL [facility] Specimen Blood - Blood specimen (specimen) Performing Organization Address City/State/Zipcode Phone Number [facility] [address] [place] [address] CBC NO DIFFERENTIAL (11/13/2019 5:22 AM EST) WBC Count 3.74 (L)Comment: 4.23 - 9.07 [facility] Methodology was K/uL [facility] changed 11/29/2018. Please note updated reference range and units. RBC Count 3.78 (L) 4.30 - 5.89 [facility] M/UL [facility] Hemoglobin 10.9 (L) 13.7 - 17.5 [facility] g/dL [facility] Hematocrit 33.9 (L) 40.1 - 51.0 % [facility] MCV 89.7 79.0 - 92.2 [facility] FL [facility] MCH 28.8 25.7 - 32.2 [facility] PG [facility] MCHC 32.2 (L) 32.3 - 36.5 [facility] g/dL [facility] Platelet Count 260 163 - 337 [facility] K/uL [facility] MPV 9.6 9.4 - 12.4 FL [facility] RDW 15.2 (H) 11.6 - 14.4 % [facility] Specimen Blood - Blood specimen (specimen) Performing Organization Address City/State/Zipcode Phone Number [facility] [address] [place] [address] [phone] BASIC METABOLIC PANEL (11/13/2019 5:22 AM EST) Glucose 80 70 - 99 mg/dl [facility] BUN 4 (L) 9 - 20 mg/dl [facility] Creatinine 0.9 0.8 - 1.5 mg/dl [facility] Sodium 137 134 - 145 mmol/L [facility] Potassium 3.8 3.5 - 5.1 mmol/L [facility] Chloride 104 98 - 107 mmol/L [facility] CO2 28 22 - 30 mmol/L [facility] Calcium 8.5 8.3 - 10.1 mg/dl [facility] eGFR >60 See Interpretation [facility] Comment: Below ml/min/1.73ml GROUP Estimated GFR Interpretation: Sq LABORATORY Above 60ml/min/1.73m2 = Normal Renal Function 30-59 ml/min/1.73m2 = Stage 3 Chronic Kidney Disease 15-29 ml/min/1.73m2 = Stage 4 Chronic Kidney Disease Less than 15 ml/min/1.73m2 = Stage 5 Chronic Kidney Disease The GFR value is calculated using the Modification of Diet in Renal Disease ( MDRD) Study Equation which can be found at: https://www.kidney.org/content/qetk-zzmpn-ykpvgfcv BUN/Creatinine 4 (L) 6 - 22 RATIO [facility] Ratio [facility] Anion Gap 5 3 - 11 mmol/L [facility] Specimen Blood - Blood specimen (specimen) Performing Organization Address City/State/Zipcode Phone Number [facility] [address] [place] [address] [phone] XR [facility] IMAGESTREAM (11/12/2019 4:47 PM EST) Specimen Narrative Performed At [facility] OR Imagestream. If no PACS link is available, no images were [facility] POCT taken and saved to PACS. Performing Organization Address City/[facility] Phone Number [facility] [address] [place] [address] CBC NO DIFFERENTIAL (11/12/2019 3:34 AM EST) WBC Count 6.28Comment: 4.23 - 9.07 [facility] Methodology was K/uL [facility] changed 11/29/2018. Please note updated reference range and units. RBC Count 3.66 (L) 4.30 - 5.89 [facility] M/UL [facility] Hemoglobin 10.5 (L) 13.7 - 17.5 [facility] g/dL [facility] Hematocrit 32.5 (L) 40.1 - 51.0 % [facility] MCV 88.8 79.0 - 92.2 [facility] FL [facility] MCH 28.7 25.7 - 32.2 [facility] PG [facility] MCHC 32.3 32.3 - 36.5 [facility] g/dL [facility] Platelet Count 220 163 - 337 [facility] K/uL [facility] MPV 9.3 (L) 9.4 - 12.4 FL [facility] RDW 15.6 (H) 11.6 - 14.4 % [facility] Specimen Blood - Blood specimen (specimen) Performing Organization Address [facility] Phone Number [facility] [address] [place] [address] [phone] MAGNESIUM LEVEL (11/12/2019 3:33 AM EST) Magnesium 2.2 1.6 - 2.3 MG/DL [facility] Specimen Blood - Blood specimen (specimen) Performing Organization Address [facility] Phone Number [facility] [address] [place] [address] TYPE AND SCREEN (11/12/2019 3:33 AM EST) ABO/RH Type B NEG [facility] Antibody Screen Interp NEG [facility] Specimen Blood Performing Organization Address [facility] Phone [place] [address] BASIC METABOLIC PANEL (11/12/2019 3:33 AM EST) Glucose 70 70 - 99 mg/dl [facility] BUN 6 (L) 9 - 20 mg/dl [facility] Creatinine 0.9 0.8 - 1.5 mg/dl [facility] Sodium 136 134 - 145 mmol/L [facility] Potassium 3.3 (L) 3.5 - 5.1 mmol/L [facility] Chloride 103 98 - 107 mmol/L [facility] CO2 29 22 - 30 mmol/L [facility] Calcium 8.2 (L) 8.3 - 10.1 mg/dl [facility] eGFR >60 See Interpretation [facility] Comment: Below ml/min/1.73ml GROUP Estimated GFR Interpretation: LABORATORY Above 60ml/min/1.73m2 = Normal Renal Function 30-59 ml/min/1.73m2 = Stage 3 Chronic Kidney Disease 15-29 ml/min/1.73m2 = Stage 4 Chronic Kidney Disease Less than 15 ml/min/1.73m2 = Stage 5 Chronic Kidney Disease The GFR value is calculated using the Modification of Diet in Renal Disease ( MDRD) Study Equation which can be found at: https://www.kidney.org/content/ajoi-mkhmd-mevlgnwn BUN/Creatinine 7 6 - 22 RATIO [facility] Ratio [facility] Anion Gap 4 3 - 11 mmol/L [facility] Specimen Blood - Blood specimen (specimen) Performing Organization Address City/State/Zipcode Phone Number [facility] [address] [place] [address] XR CHEST 2 VIEW PA AND LATERAL (STANDARD) (11/11/2019 10:34 AM EST) Specimen Impressions Performed At Possible early infiltrates at the bilateral lung bases versus hypoventilatory change. Signed by Taylor Sosa MD, MFA on 11/11/2019 11:03 AM Narrative Performed At Procedure(s): XR CHEST 2 VIEW PA AND LATERAL (STANDARD) Date of service: 11/11/2019 10:26 AM Provided clinical information: 59 years, Male, "Mild substernal chest pressure" Procedure and materials: 2 images of the chest were obtained. Comparison studies: CT also performed the same date. Devices: None. There are subtle opacities over the bilateral lung bases posteriorly. No appreciable pneumothorax. No effusion. The pulmonary vasculature is within normal limits. No interstitial abnormality. Cardiomediastinal silhouette is within normal limits. Bones demonstrate no acute findings. Procedure Note Interface, Rad Results - 11/11/2019 11:05 AM EST Procedure(s): XR CHEST 2 VIEW PA AND LATERAL (STANDARD) Date of service: 11/11/2019 10:26 AM Provided clinical information: 59 years, Male, "Mild substernal chest pressure" Procedure and materials: 2 images of the chest were obtained. Comparison studies: CT also performed the same date. Devices: None. There are subtle opacities over the bilateral lung bases posteriorly. No appreciable pneumothorax. No effusion. The pulmonary vasculature is within normal limits. No interstitial abnormality. Cardiomediastinal silhouette is within normal limits. Bones demonstrate no acute findings. IMPRESSION Possible early infiltrates at the bilateral lung bases versus hypoventilatory change. Signed by Taylor Sosa MD, MFA on 11/11/2019 11:[address] ABDOMEN PELVIS WITH IV CONTRAST (11/11/2019 10:30 AM EST) Specimen Impressions Performed At 1. Thickening of the postsurgical stomach wall. Direct observation with EGD may be of benefit. 2. Possible bilateral early infiltrates in the lung bases versus hypoventilatory change. 3. Inflammatory change about the left fat-containing inguinal hernia. Correlate for focal tenderness. Signed by Taylor Sosa MD, MFA on 11/11/2019 11:02 AM Narrative Performed At Procedure(s): CT ABDOMEN PELVIS WITH IV CONTRAST Date of service: 11/11/2019 10:15 AM Provided clinical information: 59 years, Male, "Gastric stapling 20 years ago, now presenting with recurrent nausea and vomiting postprandially, upper GI series and scans from [place] demonstrates partial or complete obstruction of the gastric outlet from the former gastric stapling, presenting with worsening nausea and vomiting and abdomina pain" Procedure and materials: Multiple helically acquired axial CT images were obtained through the abdomen and pelvis. Sagittal and coronal reformatted images were created on a separate workstation. Contrast: 100 mL intravenous Omnipaque 350 was administered. Comparison studies: 08/18/2019. Observations: Lung bases: There are subtle questionable infiltrates in the bilateral lung bases versus hypoventilatory change. There is fluid in the esophagus which appears mildly distended. Atelectasis in the bilateral lung bases. Liver, biliary system, pancreas, spleen, and adrenal glands: Liver is unremarkable. Gallbladder is surgically absent. No intrahepatic or extrahepatic biliary ductal dilation. Pancreas is unremarkable. Spleen is unremarkable. Adrenal glands are unremarkable. Kidneys: No stone. No solid mass, hydronephrosis, or hydroureter. Bladder: Unremarkable. Bowel: The patient is status post gastric surgery, apparently a type of gastric stapling. Evaluation of the stomach and bowel is limited due to the lack of oral contrast. Stomach wall is thickened proximal to the region of the aftab. The region distal to the stapling appears unremarkable. No obstruction. Residual oral contrast is seen in the colon, likely from known recent prior CT scan at another facility. Normal appendix. Aorta: No abdominal aortic aneurysm. Lymph nodes: No significant mesenteric, retroperitoneal, or pelvic lymphadenopathy. Pelvis: No pelvic mass. Bones and soft tissues: No suspicious lesions. Multilevel degenerative changes noted in the spine. Soft tissues are unremarkable. Additional findings: Small fat-containing umbilical hernia. Linear calcification in a horizontal orientation in the lower abdomen fascia, probably chronic sequela from prior surgery at this location. Similar calcifications are seen in the upper abdomen fascia. Small bilateral fat-containing inguinal hernias. The left hernia demonstrates surrounding stranding, likely indicating inflammatory change. Procedure Note Interface, Rad Results - 11/11/2019 11:04 AM EST Procedure(s): CT ABDOMEN PELVIS WITH IV CONTRAST Date of service: 11/11/2019 10:15 AM Provided clinical information: 59 years, Male, "Gastric stapling 20 years ago, now presenting with recurrent nausea and vomiting postprandially, upper GI series and scans from [place] demonstrates partial or complete obstruction of the gastric outlet from the former gastric stapling, presenting with worsening nausea and vomiting and abdomina pain" Procedure and materials: Multiple helically acquired axial CT images were obtained through the abdomen and pelvis. Sagittal and coronal reformatted images were created on a separate workstation. Contrast: 100 mL intravenous Omnipaque 350 was administered. Comparison studies: 08/18/2019. Observations: Lung bases: There are subtle questionable infiltrates in the bilateral lung bases versus hypoventilatory change. There is fluid in the esophagus which appears mildly distended. Atelectasis in the bilateral lung bases. Liver, biliary system, pancreas, spleen, and adrenal glands: Liver is unremarkable. Gallbladder is surgically absent. No intrahepatic or extrahepatic biliary ductal dilation. Pancreas is unremarkable. Spleen is unremarkable. Adrenal glands are unremarkable. Kidneys: No stone. No solid mass, hydronephrosis, or hydroureter. Bladder: Unremarkable. Bowel: The patient is status post gastric surgery, apparently a type of gastric stapling. Evaluation of the stomach and bowel is limited due to the lack of oral contrast. Stomach wall is thickened proximal to the region of the aftab. The region distal to the stapling appears unremarkable. No obstruction. Residual oral contrast is seen in the colon, likely from known recent prior CT scan at another facility. Normal appendix. Aorta: No abdominal aortic aneurysm. Lymph nodes: No significant mesenteric, retroperitoneal, or pelvic lymphadenopathy. Pelvis: No pelvic mass. Bones and soft tissues: No suspicious lesions. Multilevel degenerative changes noted in the spine. Soft tissues are unremarkable. Additional findings: Small fat-containing umbilical hernia. Linear calcification in a horizontal orientation in the lower abdomen fascia, probably chronic sequela from prior surgery at this location. Similar calcifications are seen in the upper abdomen fascia. Small bilateral fat-containing inguinal hernias. The left hernia demonstrates surrounding stranding, likely indicating inflammatory change. IMPRESSION 1. Thickening of the postsurgical stomach wall. Direct observation with EGD may be of benefit. 2. Possible bilateral early infiltrates in the lung bases versus hypoventilatory change. 3. Inflammatory change about the left fat-containing inguinal hernia. Correlate for focal tenderness. Signed by Taylor Sosa MD, MFA on 11/11/2019 11:02 AM IN PT/ED 12 LEAD EKG (11/11/2019 10:08 AM EST) Ventricular Rate 68 BPM CARDIOLOGY DEPARTMENT Atrial rate 68 BPM CARDIOLOGY DEPARTMENT P-R Interval 170 ms CARDIOLOGY DEPARTMENT QRS Duration 78 ms CARDIOLOGY DEPARTMENT Q-T Interval 380 ms CARDIOLOGY DEPARTMENT QTC Calculation 404 ms CARDIOLOGY (Bezet) DEPARTMENT P White 38 degrees CARDIOLOGY DEPARTMENT R White -13 degrees CARDIOLOGY DEPARTMENT T White 4 degrees CARDIOLOGY DEPARTMENT Diagnosis Line Normal sinus rhythm CARDIOLOGY Low voltage QRS, consider pulmonary disease, pericardial effusion, or normal variant DEPARTMENT Nonspecific ST abnormality Abnormal ECG When compared with ECG of 18-AUG-2019 19:42, No significant change was found Confirmed by SNEHA MUÑOZ ([id number]) ([id number]) on 11/11/2019 8:37:14 PM Specimen Narrative Performed At Performing Organization Address [facility] Phone Number CARDIOLOGY DEPARTMENT PATIENT TYPE CONFIRMATION (11/11/2019 9:46 AM EST) Specimen Blood - Blood specimen (specimen) Performing Organization Address City/[facility]/Zipcode Phone Number [facility] [place] [address] RAINBOW DRAW PINK TOP (11/11/2019 9:46 AM EST) Specimen Blood - Blood specimen (specimen) Performing Organization Address [facility]/Zipcode Phone Number [address] [employer] [facility] [address] [place] [address] [phone] RAINBOW DRAW LIGHT BLUE TOP (11/11/2019 9:46 AM EST) Specimen Blood - Blood specimen (specimen) Performing Organization Address [facility] Phone Number [employer] [facility] [address] [place] [address] LIPASE (11/11/2019 9:36 AM EST) Lipase 52 23 - 300 U/L [facility] Specimen Blood - Blood specimen (specimen) Performing Organization Address [facility] Phone Number [facility] [address] [place] [address] [phone] COMPREHENSIVE METABOLIC PANEL (11/11/2019 9:36 AM EST) Sodium 137 134 - 145 mmol/L [facility] Potassium 3.5 3.5 - 5.1 mmol/L [facility] Chloride 101 98 - 107 mmol/L [facility] CO2 26 22 - 30 mmol/L [facility] Calcium 9.0 8.3 - 10.1 mg/dl [facility] Albumin 3.1 (L) 3.5 - 5.0 g/dl [facility] BUN 5 (L) 9 - 20 mg/dl [facility] Creatinine 0.9 0.8 - 1.5 mg/dl [facility] Glucose 85 70 - 99 mg/dl [facility] Total Protein 6.8 6.3 - 8.2 g/dl [facility] Total Bilirubin 0.7 0.0 - 1.1 MG/DL [facility] AST 22 17 - 59 U/L [facility] ALT 20 (L) 21 - 72 U/L [facility] Alkaline 103 40 - 150 U/L [facility]ORY eGFR >60 See Interpretation [facility] Comment: Below ml/min/1.73ml GROUP Estimated GFR Interpretation: Sq LABORATORY Above 60ml/min/1.73m2 = Normal Renal Function 30-59 ml/min/1.73m2 = Stage 3 Chronic Kidney Disease 15-29 ml/min/1.73m2 = Stage 4 Chronic Kidney Disease Less than 15 ml/min/1.73m2 = Stage 5 Chronic Kidney Disease The GFR value is calculated using the Modification of Diet in Renal Disease ( MDRD) Study Equation which can be found at: https://www.kidney.org/content/bibx-bsmuc-ujxmhkvz BUN/Creatinine 6 6 - 22 RATIO [facility]ORY Anion Gap 10 3 - 11 mmol/L [facility] A/G Ratio 0.8 0.8 - 2.0 ratio [facility] Specimen Blood - Blood specimen (specimen) Performing Organization Address City/State/Zipcode Phone Number [facility] [address] [facility] [place] [address] [phone] CBC WITH DIFFERENTIAL (11/11/2019 9:36 AM EST) WBC Count 14.50 (H) 4.23 - 9.07 K/uL [facility] RBC Count 4.24 (L) 4.30 - 5.89 M/UL [facility] Hemoglobin 12.3 (L) 13.7 - 17.5 g/dL [facility] Hematocrit 37.4 (L) 40.1 - 51.0 % [facility] MCV 88.2 79.0 - 92.2 FL [facility] MCH 29.0 25.7 - 32.2 PG [facility] MCHC 32.9 32.3 - 36.5 g/dL [facility] Platelet Count 284 163 - 337 K/uL [facility] MPV 8.9 (L) 9.4 - 12.4 FL [facility] RDW 15.7 (H) 11.6 - 14.4 % [facility] Neutrophil % 88.0 (H) 34.0 - 67.9 % [facility] Lymphocyte % 5.2 (L) 21.8 - 53.1 % [facility] Monocyte % 5.9 5.3 - 12.2 % [facility] Eosinophil % 0.1 (L) 0.8 - 7.0 % [facility] Basophil % 0.2 0.2 - 1.2 % [facility] nRBC % 0.0 0.0 - 0.2 % [facility] Neutrophil # 12.76 (H) 1.78 - 5.38 K/UL [facility] Lymphocyte # 0.76 (L) 1.32 - 3.57 K/UL [facility] Monocyte # 0.86 (H) 0.30 - 0.82 K/UL [facility] Eosinophil # 0.01 (L) 0.04 - 0.54 K/UL [facility] Basophil # 0.03 0.01 - 0.08 K/UL [facility] Immature Gran % 0.6 (H) 0.0 - 0.4 % [facility] Immature Gran # 0.08 (H) 0.00 - 0.03 K/uL [facility] NRBC # 0.00 0.00 - 0.12 K/uL [facility] Specimen Blood - Blood specimen (specimen) Performing Organization Address City/State/Zipcode Phone Number [facility] [address] [place] Sid [phone] documented in this encounter Visit Diagnoses Diagnosis Gastric outlet obstruction Acquired hypertrophic pyloric stenosis Precordial pain Aspiration pneumonia of both lungs due to gastric secretions, unspecified part of lung (HCC) documented in this encounter Administered Medications Medication Order MAR Action Action Date Dose Rate Site banana bag IV mixture New Bag 11/13/2019 9:00 AM EST 125 mL/hr Intravenous, at 125 mL/hr, DAILY, 5 doses, First dose on Mon11/11/19 at 1245, Last dose on Mon11/15/19 at 0900, Banana bag to be hung daily. Further maintenance IV's must be ordered separately., New Bag 11/12/2019 9:18 AM EST 125 mL/hr New Bag 11/11/2019 2:13 PM EST 125 mL/hr FentaNYL (PF) (SUBLIMAZE) injection (PF) 50 Given 11/12/2019 6:02 PM EST 50 mcg mcg 50 mcg, Intravenous Push, PRU Q5MIN PRN, 4 doses, Starting Mon11/12/19 at 1731, Until Mon11/12/19 at 1910, Moderate Pain (pain scale 4-6) - IV - 1st line - if immediate effect required or patient cannot tolerate PO, Severe Pain (pain scale 7-10) - IV - 1st line - if immediate effect required or patient cannot tolerate PO, 4 Recovery heparin injection 5000 Given 11/14/2019 5:05 AM 5,000 Units Abdominal Tissue UNIT/ML EST 5,000 Units, Subcutaneous, Q8H (Heparin), 15 doses, First dose on Mon11/11/19 at 1400, Last dose on Mon11/16/19 at 0600 Given 11/13/2019 10:34 PM EST 5,000 Units Abdominal Tissue Given 11/13/2019 2:00 PM EST 5,000 Units Abdominal Tissue iohexol (OMNIPAQUE) 300 MG/ML injectable Given 11/13/2019 9:06 AM EST 100 mL solution 125 mL 125 mL, Oral, NOW, 1 dose, 11/13/19 at 0910 iohexol (OMNIPAQUE) 350 MG/ML injectable Push 11/11/2019 10:20 AM EST 100 mL solution 100 mL 100 mL, Intravenous, NOW, 1 dose, Mon11/11/19 at 1020 lactated ringers IV New Bag 11/14/2019 8:41 AM EST 150 mL/hr Intravenous, at 150 mL/hr, CONTINUOUS, Starting Mon11/11/19 at 1340, Until Helga 11/14/19 at 1557 New Bag 11/14/2019 2:25 AM EST 150 mL/hr New Bag 11/13/2019 8:14 PM EST 150 mL/hr loperamide (IMODIUM) oral liquid 15 mL Given 11/13/2019 2:34 PM EST 15 mL 15 mL (2 mg), Oral, X1 PRN, 1 dose, Starting Mon11/13/19 at 1343, Until Mon11/13/19 at 1434, diarrhea morphine (PF) syringe 2 mg Given 11/11/2019 9:45 AM EST 2 mg 2 mg, Intravenous Push, NOW, 1 dose, Mon11/11/19 at 0930 morphine (PF) syringe 2 mg Given 11/12/2019 11:42 AM EST 2 mg 2 mg, Intravenous Push, Q2 HRS PRN, Starting Mon11/11/19 at 1239, Until Helga 11/14/19 at 1557, Severe Pain (pain scale 7-10) - IV - 1st line - if immediate effect required or patient cannot tolerate PO Given 11/12/2019 7:59 AM EST 2 mg Given 11/12/2019 3:23 AM EST 2 mg normal saline bolus 1,000 mL New Bag 11/11/2019 9:38 AM EST 1,000 mL 1,000 mL, Intravenous, BOLUS, 1 dose, Mon11/11/19 at 1030 ondansetron (ZOFRAN) injection 4 mg Given 11/11/2019 9:45 AM EST 4 mg 4 mg, Intravenous Push, NOW, 1 dose, Mon11/11/19 at 0930 ondansetron (ZOFRAN) injection 4 mg Given 11/14/2019 12:34 PM EST 4 mg 4 mg, Intravenous Push, Q6 HRS, First dose on Mon11/11/19 at 1345, Until Discontinued Given 11/14/2019 1:56 AM EST 4 mg Given 11/13/2019 8:21 PM EST 4 mg pantoprazole (PROTONIX) injection 40 mg Given 11/14/2019 10:18 AM EST 40 mg 40 mg, Intravenous Push, BID, First dose on Mon11/11/19 at 1245, Until Discontinued, DO NOT USE BACTERIOSTATIC SALINE FROM STOREROOM!!!! INSTRUCTIONS: Reconstitute the Protonix vial with 10 mL Sodium Chloride prefilled syringe for an approximate final concentration of 4 mg/ml. Mix prior to administration. There is a 2 hour stability once mixed. Administer over a period of 2 minutes. Administer thru a dedicated line or a Y site. Please flush before and after administration. , Given 11/13/2019 8:24 PM EST 40 mg Given 11/13/2019 9:17 AM EST 40 mg piperacillin-TAZOBACTAM (ZOSYN) (4 Hour) IV New Bag 11/14/2019 5:05 AM EST 4.5 g mixture 4.5 g 4.5 g, Intravenous, Q8 HRS, 44 doses, First dose on Mon11/11/19 at 2100, Last dose on Mon11/26/19 at 0500 New Bag 11/13/2019 8:15 PM EST 4.5 g New Bag 11/13/2019 12:56 PM EST 4.5 g piperacillin-TAZOBACTAM (ZOSYN) IV premix New Bag 11/11/2019 1:20 PM EST 4.5 g 4.5 g 4.5 g, Intravenous, NOW, 1 dose, Mon11/11/19 at 1300 potassium bicarb-citric acid (EFFER-K) Given 11/13/2019 9:17 AM EST 20 mEq effervescent tablet (for oral solution) 20 mEq 20 mEq, Oral, X1, 1 dose, First dose on Mon11/13/19 at 0730, Dissolve in 3-4 ounces of cold juice before administration. It is suggested that it be taken with food and sipped slowly over a 5-10 minute period., potassium chloride IV premix 10 mEq/ 100 New Bag 11/12/2019 11:45 AM EST 10 mEq mL (PERIPHERAL) 10 mEq 10 mEq, Intravenous, Q1 HR, 4 doses, First dose on Mon11/12/19 at 0730, Last dose on Mon11/12/19 at 1030, Administration of potassium infusion requires the use of an IV pump. May be administered via a PERIPHERAL line or CENTRAL line. Administer each 10 mEq over 1 hour., New Bag 11/12/2019 10:15 AM EST 10 mEq New Bag 11/12/2019 9:03 AM EST 10 mEq sucralfate (CARAFATE) oral suspension Given 11/14/2019 10:18 AM EST 1,000 mg 1,000 mg 1,000 mg, Oral, Q6 HRS, First dose on 11/11/19 at 1345, Until Discontinued, Agitate suspension well prior to administration of each dose. If receiving tube feeding, stop infusion, flush tube with sterile water (30 mL for a PEG tube; 60 mL for an OG or NG tube), administer sucralfate and flush tube with sterile water (30 mL for a PEG tube; 60 mL for an OG or NG tube) before restarting tube feeding., Given 11/14/2019 1:57 AM EST 1,000 mg Given 11/13/2019 8:21 PM EST 1,000 mg documented in this encounter Insurance Payer Benefit Plan / Subscriber ID Effective Dates Phone Address Type Group [facility] xxxxxxxxxxx 2019-Present [facility] documented as of this encounter
--- OUTSIDE RECORDS SUMMARY | 2019-11-30 08:22 | XMS REPORT | Summary of Care ---
:1960 Author Organization [facility] Address [address] [facility] [place] [id number] Care Team Providers Name Role Phone None, [place] Primary Care Provider Unavailable Reason for Visit Reason Comments New Patient gastric pouch not emptying Encounter Details Date Type Department Care Team Description 11/05/2019 Office Visit Sonali Craven MD Gastric outflow obstruction (Primary Dx); Surgery 1 JAIDA STRAUSS Hx of bariatric surgery; 1 [facility] [place] [id number] Nausea and vomiting, intractability of vomiting not specified, unspecified vomiting type [place] [id number] Allergies Active Allergy Reactions Severity Noted Date Comments Compazine CONTINUOUS DRYOUT OPERATOR HELPER Reaction 08/18/2019 Metoclopramide CONTINUOUS DRYOUT OPERATOR HELPER Reaction 08/18/2019 documented as of this encounter (statuses as of 11/13/2019) Medications Medication Sig Dispensed Refills Start Date End Date Status potassium chloride Take 2 Tabs by 120 Tab 0 09/18/2019 Suspended (K-TAB) 10 MEQ Oral mouth TWICE Tab CR DAILY. Additional information pantoprazole (PROTONIX) 40 MG Take 1 Tab by mouth 30 Tab 6 10/16/2019 Suspended Oral Tab ECIndications: BEFORE BREAKFAST. Gastroesophageal reflux disease with esophagitis, Aspiration pneumonia of both lungs due to gastric secretions, unspecified part of lung (HCC) Additional information ondansetron (ZOFRAN) 4 MG Oral Take 4 mg by mouth 30 Tab 0 11/04/2019 Suspended TabIndications: Vomiting, EVERY EIGHT HOURS intractability of vomiting not NEEDED (nausea). specified, presence of nausea not specified, unspecified vomiting type, Hx of laparoscopic gastric banding Additional information Hospital, Clinic, or Other Ordered Dose Route Frequency Start Date End Date Status Facility Administered Medication normal saline IVIndications: IV CONTINUOUS 09/03/2019 Active Vomiting and diarrhea documented as of this encounter (statuses as of 11/13/2019) Active Problems Problem Noted Date Aspiration pneumonia of both lungs due to gastric secretions 09/25/2019 documented as of this encounter (statuses as of 11/13/2019) Social History Tobacco Use Types Packs/Day Years [...] Sign Reading Time Taken Comments Blood Pressure 118/70 11/05/2019 3:28 PM EST Pulse 76 11/05/2019 3:28 PM EST Temperature 36.8 11/05/2019 3:28 PM EST C (98.2 F) Respiratory Rate - - Oxygen Saturation 99% 11/05/2019 3:28 PM EST Inhaled Oxygen Concentration - - Weight 82.8 kg (182 lb 9.6 oz) 11/05/2019 3:28 PM EST Height 172.7 cm (5' 8") 11/05/2019 3:28 PM EST Body Mass Index 27.76 11/05/2019 3:28 PM EST documented in this encounter Progress Notes Sonali Hurley MD - 11/05/2019 3:30 PM EST [facility] GENERAL SURGERY OFFICE VISIT NOTE PATIENT: David Beck : 1960 DATE OF SERVICE: 11/05/2019 REFERRING PRACTITIONER: Maria Antonia Florian PRIMARY CARE PROVIDER: None, [place] CHIEF COMPLAINT: Dysphagia HISTORY OF PRESENT ILLNESS: David Beck is a 59-y.o. male who is here today for evaluation of dysphagia symptoms He has a history of Vertical Banded Gastroplasty performed at [facility] several years ago in open fashion He reports having symptoms of dysphagia, nausea, and emesis He is unable to keep down most solids He did lose a fair amount of weight after the initial VBG surgery He's had an upper GI study and EGD performed at [facility], but is unsure of those results Patient Active Problem List Diagnosis Aspiration pneumonia of both lungs due to gastric secretions (HCC) Past Medical History: Diagnosis Date GERD (gastroesophageal reflux disease) Guillain Pappas syndrome (HCC) 1997 Hernia of abdominal cavity Legionnaire's disease (HCC) Past Surgical History: Procedure Laterality Date GALLBLADDER INCISION REPAIR INITIAL INGUINAL HERNIA, Left 2000, 2006 and 2017 (double) No current facility-administered medications for this visit. No current outpatient medications on file. Facility-Administered Medications Ordered in Other Visits Medication banana bag IV mixture heparin injection 5000 UNIT/ML lactated ringers IV morphine (PF) syringe 2 mg ondansetron (ZOFRAN) injection 4 mg pantoprazole (PROTONIX) injection 40 mg piperacillin-TAZOBACTAM (ZOSYN) (4 Hour) IV mixture 4.5 g sucralfate (CARAFATE) oral suspension 1,000 mg Allergies Allergen Reactions Compazine CONTINUOUS DRYOUT OPERATOR HELPER Reaction Reglan [Metoclopramide] CONTINUOUS DRYOUT OPERATOR HELPER Reaction Social History Socioeconomic History Marital status: Single Spouse name: Not on file Number of children: Not on file Years of education: Not on file Highest education level: Not on file Occupational History Not on file Social Needs Financial resource strain: Not hard at all Food insecurity Worry: Never true Inability: Never true Transportation needs Medical: No Non-medical: No Tobacco Use Smoking status: Never Smoker Smokeless tobacco: Never Used Substance and Sexual Activity Alcohol use: Never Frequency: Never Drug use: Not Currently Sexual activity: Yes Partners: Female Lifestyle Physical activity Days per week: 7 days Minutes per session: 120 min Stress: Not at all Relationships Social connections Talks on phone: Not on file Gets together: Not on file Attends advent service: Not on file Active member of club or organization: Not on file Attends meetings of clubs or organizations: Not on file Relationship status: Not on file Intimate partner violence Fear of current or ex partner: No Emotionally abused: No Physically abused: No Forced sexual activity: No Other Topics Concern Not on file Social History Narrative Not on file No family history on file. REVIEW OF SYSTEMS: CONSTITUTIONAL: negative for fevers or chills. EYES: negative for double vision EARS, NOSE, MOUTH, THROAT and FACE: negative for nasal congestion or sore throat. RESPIRATORY: negative for shortness of breath. CARDIOVASCULAR: negative for chest pressure/discomfort. GASTROINTESTINAL: negative for hematemesis or blood per rectum + for nausea and dry heaving GENITOURINARY: No urinary tract infection. INTEGUMENT: negative for rash HEMATOLOGIC/LYMPHATIC: negative for easy bruising and bleeding. MUSCULOSKELETAL: negative for muscle weakness. NEUROLOGICAL: negative for seizures. BEHAVIORAL/PSYCH: No suicidal or homicidal ideation. PHYSICAL EXAM: BP 118/70 | Pulse 76 | Temp 98.2 F (36.8 C) | Ht 5' 8" (1.727 m) | Wt 182 lb 9.6 oz (82.8 kg) | SpO2 99% | BMI 27.76 kg/m GENERAL: Well-developed, well-nourished. In no acute distress HEENT: Normocephalic, atraumatic. Extraocular movements intact. NECK: Supple, no jugular venous distention, no lymphadenopathy LUNGS: bilateral breath sounds present, no wheezes noted CARDIOVASCULAR: regular rate and rhythm, no murmurs, rubs or gallops. ABDOMEN: Soft, non-tender, non-distended. No masses. No organomegaly. FLANK TENDERNESS: absent RECTAL: Deferred SKIN: no rash or abnormalities. EXTREMITIES: no focal neurologic deficits PSYCHIATRIC: No active psychoses or hallucinations LABS: pending IMAGING: none IMPRESSION: ICD-9-CM ICD-10-CM 1. Gastric outflow obstruction 537.0 K31.1 2. Hx of bariatric surgery V45.86 Z98.84 3. Nausea and vomiting, intractability of vomiting not specified, unspecified vomiting type 787.01 R11.2 ASSESSMENT & PLAN: David Beck is a 59-y.o. male with history of vertical banded gastroplasty who presents with dysphagia, nausea, and emesis. Patient likely has stenosis at the level of the band. Will perform upperendoscopy to better evaluate this area. Patient will likely need revisional bariatric surgery. Patient to follow up with me after upper endoscopy performed. The patient understood that the risks included, but were not limited to: injury to parts of the digestive tract including the mouth, lips, teeth, tongue , oropharynx, hypopharynx, esophagus, stomach, and small intestine. [...] elected to proceed with the aforementioned procedure. I personally saw and examined the patient during this office visit. I have personally obtained or reviewed the patient's history, and I performed the physical exam. I have also reviewed relevant results of laboratory tests, imaging studies, pathology results, and procedures relevant to the care of thepatient. I have reviewed parts of the medical record relevant to this patient 's care (such as notes of the primary care physician or other consultants). Author: Sonali Hurley MDElectronically signed by Sonali Hurley MD at 2018 12:08 AM ESTdocumented in this encounter Plan of Treatment Date Type Specialty Care Team Description 11/15/2019 Appointment Radiology 11/29/2019 Hospital Encounter [facility] Sonali Hurley, Short Procedure MD 1 [address] [id number] 11/29/2019 Surgery [facility] Sonali Hurley, ENDOSCOPY UPPER GI MD 1 [address] [id number] 11/29/2019 GI Procedure Gastroenterology Sonali Hurley MD [address] [id number] 12/10/2019 Office Visit General Surgery Sonali Hurley MD [address] [id number] Name Type Priority Associated Diagnoses Order Schedule XR UPPER GI SERIES Imaging Routine Gastric outflow Expected: 11/05/2019, W/KUB obstruction Expires: 11/04/2020 Health Maintenance Due Date Last Done Comments DTaP/Tdap/Td Vaccines (1 - 1970 Tdap) HIV SCREENING 1974 HEPATITIS C SCREENING 1999 LIPID DISORDER SCREENING 03/24/2009 03/24/2004 Colonoscopy 2009 ZOSTER IMMUNIZATION SERIES 2009 (1 of 2) DEPRESSION SCREENING 09/17/2020 09/17/2019 INFLUENZA VACCINE (#1) 2020 Postponed from 07/28/2019 (Patient refused) DIABETES SCREENING 11/11/2020 11/11/2019, 10/02/2019, 09/25/2019, Additional history exists HEPATITIS A IMMUNIZATION Aged [...] filedocumented in this encounter Visit Diagnoses Diagnosis Gastric outflow obstruction Acquired hypertrophic pyloric stenosis Hx of bariatric surgery Bariatric surgery status Nausea and vomiting, intractability of vomiting not specified, unspecified vomiting type documented in this encounter Insurance Payer Benefit Plan / Subscriber ID Effective Dates Phone Address Type Group [facility] xxxxxxxxxxx 2019-Present Willam documented as of this encounter
[2019-11-30] MEDS ORDERED: Ondansetron INJ* 2 MG/ML VIAL IV ONE (08:26)
[2019-11-30 08:30] LABS: TSH (Thyroid Stimulating Horm) 0.87 mcIU/mL (0.34-5.60)
[2019-11-30 09:06] LABS: Influenza A Molecular NEGATIVE (Negative); Influenza B Molecular NEGATIVE (Negative)
[2019-11-30] MEDS ORDERED: Amoxicillin/Clavulanate TAB* 875 MG PO ONE (09:14)
[2019-11-30 09:38] VITALS: BP 145/102
== END 2019-11-30 09:38 | disposition home or self-care (01) ==
LOC: ED 07:19
DX: J18.9 Pneumonia, unspecified organism (principal); Z88.8 Allergy status to other drugs, medicaments and biological substances
CPT/HCPCS: 36415; 71046; 80053; 83605; 83735; 84443; 84484; 85025; 93005; 96361; 96374; 99283; A9270-GY; J2405

== ENCOUNTER 2020-10-06 09:00 | Inpatient (IN) ==
[2020-10-06] MEDS ORDERED: NS 0.9% 1000 ml BAG 1,000 ML IV ONE ×2 (09:12→10:28)
[2020-10-06 09:47] LABS: ABS Eosinophils 0.1 10^3/ul (0-0.6); ABS Lymphocytes 1.3 10^3/ul (1.0-4.8); ABS Monocytes 0.5 10^3/ul (0-0.8); ABS Neutrophils 2.8 10^3/ul (1.5-7.7); Eosinophil % 2.8 %; Hematocrit 41 % (42-52); Hemoglobin 13.6 g/dL (14.0-18.0); Mean Corpuscular HGB Conc 33 g/dL (31-36); Mean Corpuscular Hemoglobin 25 pg (27-31); Mean Corpuscular Volume 75 fL (80-94); Mean Platelet Volume 8.3 fL (7.4-10.4); Platelet Count 243 10^3/uL (150-450); Red Blood Count 5.44 10^6 /uL (4.18-5.48); Red Cell Distribution Width 18 % (10-15); White Blood Count 4.7 10^3/uL (3.5-10.8)
[2020-10-06 10:09] LABS: Albumin 3.4 g/dL (3.2-5.2); Albumin/Globulin Ratio 0.9 (1-3); BUN/Creatinine Ratio 11.4 (8-20); Calcium 8.5 mg/dL (8.6-10.3); EGFR African American 79.3 (>60); EGFR Non-African American 65.5 (>60); Globulin 3.6 g/dL (2-4); Magnesium 1.9 mg/dL (1.9-2.7); Potassium 3.8 mmol/L (3.5-5.0); Total Bilirubin 0.4 mg/dL (0.2-1.0)
[2020-10-06 10:10] LABS: Troponin I 0.01 ng/mL (<0.03)
[2020-10-06 10:22] LABS: TSH Ultra Thyroid Stim Horm 3.04 mcIU/mL (0.34-5.60)
[2020-10-06 11:22] LABS: Urine Appearance Clear; Urine Bilirubin Negative (Negative); Urine Blood Negative (Negative); Urine Color Straw; Urine Glucose 3+(>=500 mg/dL) (Negative); Urine Ketones Trace (Negative); Urine Nitrite Negative (Negative); Urine Protein Negative (Negative); Urine Specific Gravity 1.032 (1.010-1.030); Urine Urobilinogen Negative (Negative)
[2020-10-06] MEDS ORDERED: Lactated Ringers 1000 ml BAG 1,000 ML IV SCH (12:00)
[2020-10-06] MEDS ORDERED: Dextrose 50% Syringe 50 ml 25 GM/50 ML SYRINGE IV PUSH PRN (13:29)
[2020-10-06] MEDS: Heparin 5000 UNITS/ML 1 mL VIAL SUBCUT SCH ×2 (13:51→22:34)
[2020-10-06] MEDS ORDERED: Insulin GLARGINE 100 un/ml 10 ml VIAL SUBCUT SCH (14:00)
[2020-10-06] MEDS ORDERED: D5W 1000 ml BAG 1,000 ML IV SCH (18:00)
[2020-10-07] MEDS: Heparin 5000 UNITS/ML 1 mL VIAL SUBCUT SCH (05:58)
[2020-10-07] MEDS ORDERED: Dextrose 50% Syringe 50 ml 25 GM/50 ML SYRINGE IV PUSH PRN (07:31)
[2020-10-07] MEDS: Enoxaparin 40 MG/0.4 ML SYR SUBCUT SCH (09:04)
[2020-10-07] MEDS: Insulin GLARGINE 100 un/ml 10 ml VIAL SUBCUT SCH (09:05)
[2020-10-07 10:27] LABS: % Iron Saturation 14 % (15-55); Iron 48 ug/dL (50-212); Total Iron Binding Capacity 353 mcg/dL (250-450); Transferrin 252 mg/dL (203-362); Unsaturated Iron Binding < 338 ug/dL
[2020-10-07 10:46] LABS: Ferritin 16.2 ng/mL (24-336)
[2020-10-07 11:11] LABS: BUN/Creatinine Ratio 11.4 (8-20); Calcium 8.4 mg/dL (8.6-10.3); EGFR African American 106.9 (>60); EGFR Non-African American 88.3 (>60); Potassium 4.4 mmol/L (3.5-5.0)
[2020-10-07] MEDS ORDERED: Iron Sucrose 200 MG in NS 0.9% 100 ml BAG 100 ML IVPB ONE (11:30)
[2020-10-08 06:00] LABS: BUN/Creatinine Ratio 10.5 (8-20); Calcium 8.4 mg/dL (8.6-10.3); EGFR African American 109.8 (>60); EGFR Non-African American 90.7 (>60); Potassium 3.4 mmol/L (3.5-5.0)
[2020-10-08] MEDS: Insulin GLARGINE 100 un/ml 10 ml VIAL SUBCUT SCH (08:09)
[2020-10-08] MEDS: Enoxaparin 40 MG/0.4 ML SYR SUBCUT SCH (08:09)
[2020-10-08] MEDS ORDERED: Potassium Chlor 20 meq TAB.ER PO ONE (08:20)
[2020-10-08] MEDS ORDERED: Iron Sucrose 200 MG in NS 0.9% 100 ml BAG 100 ML IVPB ONE (09:00)
[2020-10-08 11:34] VITALS: BP 116/63
== END 2020-10-08 14:30 | disposition home or self-care (01) | DRG 420 ==
LOC: ED 09:00 → MEDTELE 11:24
PROVIDERS: ADMIT Internal Medicine; ATTEND Internal Medicine

== ENCOUNTER 2021-07-10 18:13 | Inpatient (IN) ==
[2021-07-10 19:16] LABS: ABS Basophils 0.1 10^3/ul (0-0.2); ABS Lymphocytes 1.5 10^3/ul (1.0-4.8); ABS Neutrophils 10.4 10^3/ul (1.5-7.7); Eosinophil % 0.4 %; Hematocrit 41 % (42-52); Hemoglobin 13.9 g/dL (14.0-18.0); Lymphocyte % 11.4 %; Mean Corpuscular HGB Conc 34 g/dL (31-36); Mean Corpuscular Hemoglobin 28 pg (27-31); Mean Corpuscular Volume 83 fL (80-94); Mean Platelet Volume 7.5 fL (7.4-10.4); Platelet Count 347 10^3/uL (150-450); Red Blood Count 4.93 10^6 /uL (4.18-5.48); Red Cell Distribution Width 16 % (10-15); White Blood Count 12.9 10^3/uL (3.5-10.8)
[2021-07-10 19:33] LABS: Albumin 3.3 g/dL (3.2-5.2); Albumin/Globulin Ratio 0.8 (1-3); Calcium 9.1 mg/dL (8.6-10.3); EGFR Non-African American 70.3 (>60); Globulin 4.3 g/dL (2-4); Potassium 4.1 mmol/L (3.5-5.0); Total Bilirubin 0.5 mg/dL (0.2-1.0); Total Protein 7.6 g/dL (6.4-8.9)
[2021-07-10] MEDS ORDERED: Lactated Ringers 1000 ml BAG 1,000 ML IV ONE (20:52)
[2021-07-10] MEDS ORDERED: Vancomycin 1,000 MG in NS 0.9% 250 ml 250 ML IVPB ONE (20:53)
[2021-07-10] MEDS ORDERED: Piperacillin/Tazobac ADVAN 3.375 GM in NS 0.9% 100 ml BAG 100 ML IV ONE (20:53)
[2021-07-10] MEDS ORDERED: Morphine 4 MG/ML VIAL (1 ml) IV ONE (20:56)
[2021-07-10 21:09] LABS: Urine Appearance Cloudy; Urine Bilirubin Negative (Negative); Urine Blood 2+ (Negative); Urine Color Yellow; Urine Glucose 3+(>=500 mg/dL) (Negative); Urine Ketones 2+ (Negative); Urine Nitrite Negative (Negative); Urine Protein Negative (Negative); Urine Specific Gravity 1.036 (1.002-1.030); Urine Urobilinogen Negative (Negative)
[2021-07-10 21:13] LABS: Urine Bacteria 1+ (Absent); Urine Red Blood Cell 3+(>10/hpf) (Absent); Urine Squamous Epithelial Cell Present (Absent); Urine White Blood Cell 1+(6-10/hpf) (Absent); Urine Yeast Present (Absent)
[2021-07-10 21:15] LABS: Activated Partial Thrombo Time 26.2 seconds (26.0-38.0); INR 1.34 (0.86-1.15)
[2021-07-10 21:21] LABS: C Reactive Protein 190.25 mg/L (<8.01)
[2021-07-10] MEDS ORDERED: Iodixanol (CONTRAST) 320 MG/ML 100 ML SDV IV ONE (21:23)
[2021-07-10 21:24] LABS: Troponin I 0.02 ng/mL (<0.03)
[2021-07-11] MEDS ORDERED: Ondansetron 4 mg VIAL 2 MG/ML 2 ml VIAL IV PRN (00:20)
[2021-07-11] MEDS ORDERED: Dextrose 50% Syringe 50 ml 25 GM/50 ML SYRINGE IV PUSH PRN (00:27)
[2021-07-11] MEDS ORDERED: NS 0.9% 250 ml 250 ML ONE (00:51)
[2021-07-11] MEDS ORDERED: Vancomycin 1,250 MG in NS 0.9% 250 ml 250 ML IVPB ONE (01:00)
[2021-07-11] MEDS ORDERED: Vancomycin per Pharmacy 1 EA NOTE FOLLOW UP SCH (01:00)
[2021-07-11] MEDS ORDERED: Zosyn per Pharmacy NOTE FOLLOW UP SCH (01:00)
[2021-07-11 07:03] LABS: ABS Basophils 0.1 10^3/ul (0-0.2); ABS Eosinophils 0.2 10^3/ul (0-0.6); ABS Lymphocytes 1.7 10^3/ul (1.0-4.8); ABS Neutrophils 8.1 10^3/ul (1.5-7.7); Eosinophil % 1.6 %; Hematocrit 39 % (42-52); Hemoglobin 13.2 g/dL (14.0-18.0); Lymphocyte % 15.2 %; Mean Corpuscular HGB Conc 34 g/dL (31-36); Mean Corpuscular Hemoglobin 28 pg (27-31); Mean Corpuscular Volume 83 fL (80-94); Mean Platelet Volume 7.9 fL (7.4-10.4); Platelet Count 298 10^3/uL (150-450); Red Blood Count 4.65 10^6 /uL (4.18-5.48); Red Cell Distribution Width 15 % (10-15); White Blood Count 11.1 10^3/uL (3.5-10.8)
[2021-07-11 07:11] LABS: Calcium 8.2 mg/dL (8.6-10.3); EGFR African American 82.3 (>60); EGFR Non-African American 68.1 (>60); Potassium 3.7 mmol/L (3.5-5.0)
[2021-07-11] MEDS ORDERED: Bupivacaine 0.25% SDV 30 ML ONE (11:21)
[2021-07-11] MEDS ORDERED: Lidocaine 2% PF 5 ML VIAL ONE (11:28)
[2021-07-11] MEDS ORDERED: Propofol 10 MG/ML 20 ML BTL ONE (11:28)
[2021-07-11] MEDS ORDERED: fentaNYL 100 mcg/2 ml 50 MCG/ML VIAL ONE (11:28)
[2021-07-11] MEDS ORDERED: Midazolam 2 mg/2 ml VIAL 1 mg/ml 2 ml VIAL (2 mg) ONE (11:28)
[2021-07-11] MEDS ORDERED: Rocuronium 50 mg VIAL 10 mg/ml 5 ml VIAL (50 mg) ONE ×2 (11:31→12:07)
[2021-07-11] MEDS ORDERED: Piperacillin/Tazobac 3.375 GM BAG ONE (11:45)
[2021-07-11] MEDS ORDERED: Vancomycin 1,250 MG in NS 0.9% 250 ml 250 ML IVPB SCH (12:00)
[2021-07-11] MEDS ORDERED: Ondansetron 4 mg VIAL 2 MG/ML 2 ml VIAL ONE (12:16)
[2021-07-11] MEDS ORDERED: Dexamethasone IV 4 MG/ML VIAL 1 ml VIAL ONE (12:16)
[2021-07-11] MEDS ORDERED: ZOSYN 3.375 GM Q8H per EXTENDED INFUSION IV SCH ×2 (12:30→15:30)
[2021-07-11] MEDS ORDERED: diPHENhydraMINE IV 50 MG/ML 1 ml VIAL (BENADRYL) IV PRN (13:00)
[2021-07-11] MEDS ORDERED: Naloxone 0.4 mg VIAL 0.4 mg/ml 1 ml VIAL IV PRN (13:00)
[2021-07-11] MEDS ORDERED: DiMENhydriNATE IV 50 mg/ml 1 ml VIAL IV PUSH PRN (13:00)
[2021-07-11] MEDS ORDERED: HYDROmorphone 1 MG/1 ML SYRINGE ONE (13:19)
[2021-07-11] MEDS: HYDROmorphone 1 MG/1 ML SYRINGE IV PRN ×2 (13:19→13:29)
[2021-07-11] MEDS: Morphine 2 MG/ML SYRINGE IV PRN ×2 (16:56→21:01)
[2021-07-11] MEDS: Vancomycin 1,250 MG in NS 0.9% 250 ml 250 ML IVPB SCH (18:47)
[2021-07-11 23:34] LABS: Calcium 8.5 mg/dL (8.6-10.3); Potassium 4.5 mmol/L (3.5-5.0)
[2021-07-11 23:39] LABS: EGFR African American 97.5 (>60); EGFR Non-African American 80.6 (>60)
[2021-07-11] MEDS ORDERED: Insulin GLARGINE 100 un/ml 10 ml VIAL SUBCUT SCH ×2 (23:45)
[2021-07-12] MEDS: TAZOBACTAM IV SCH ×3 (00:29→12:25)
[2021-07-12] MEDS: PIPERACILLIN IV SCH ×3 (00:29→12:25)
[2021-07-12] MEDS: [UNRECOGNIZED DRUG - OTHER] IV SCH ×3 (00:29→12:25)
[2021-07-12] MEDS: Morphine 2 MG/ML SYRINGE IV PRN ×5 (01:14→19:17)
[2021-07-12] MEDS: Vancomycin 1,250 MG in NS 0.9% 250 ml 250 ML IVPB SCH ×2 (06:49→19:55)
[2021-07-12 08:43] LABS: ABS Monocytes 0.5 10^3/ul (0-0.8); ABS Neutrophils 9.6 10^3/ul (1.5-7.7); Eosinophil % 0.1 %; Hematocrit 36 % (42-52); Hemoglobin 11.9 g/dL (14.0-18.0); Lymphocyte % 8.5 %; Mean Corpuscular HGB Conc 33 g/dL (31-36); Mean Corpuscular Hemoglobin 28 pg (27-31); Mean Corpuscular Volume 85 fL (80-94); Mean Platelet Volume 7.8 fL (7.4-10.4); Platelet Count 288 10^3/uL (150-450); Red Blood Count 4.27 10^6 /uL (4.18-5.48); Red Cell Distribution Width 15 % (10-15); White Blood Count 11.2 10^3/uL (3.5-10.8)
[2021-07-12 09:17] LABS: EGFR African American 126.2 (>60); EGFR Non-African American 104.3 (>60)
[2021-07-12 10:55] LABS: Potassium 4.6 mmol/L (3.5-5.0)
[2021-07-12] MEDS ORDERED: Insulin GLARGINE 100 un/ml 10 ml VIAL SUBCUT SCH (21:00)
[2021-07-13] MEDS ORDERED: Vancomycin Trough Check NOTE FOLLOW UP ONE (06:00)
[2021-07-13] MEDS ORDERED: Buffered Lidocaine 1% SYRIN 1 ml INTRADERM ONE ×2 (07:48→13:44)
[2021-07-13] MEDS ORDERED: Senna TAB 8.6 mg TAB PO PRN (13:51)
[2021-07-13] MEDS ORDERED: Magnesium Hydroxide LIQ 30 ML UDC PO PRN (13:51)
[2021-07-13 14:43] LABS: ABS Basophils 0.1 10^3/ul (0-0.2); ABS Eosinophils 0.2 10^3/ul (0-0.6); ABS Lymphocytes 1.3 10^3/ul (1.0-4.8); ABS Monocytes 0.5 10^3/ul (0-0.8); Eosinophil % 2.5 %; Hematocrit 36 % (42-52); Hemoglobin 11.9 g/dL (14.0-18.0); Lymphocyte % 16.7 %; Mean Corpuscular HGB Conc 33 g/dL (31-36); Mean Corpuscular Hemoglobin 28 pg (27-31); Mean Corpuscular Volume 84 fL (80-94); Mean Platelet Volume 7.6 fL (7.4-10.4); Nucleated Red Blood Cells % 0.1; Platelet Count 374 10^3/uL (150-450); Red Blood Count 4.26 10^6 /uL (4.18-5.48); Red Cell Distribution Width 15 % (10-15); White Blood Count 8.1 10^3/uL (3.5-10.8)
[2021-07-13] MEDS: Vancomycin 1,250 MG in NS 0.9% 250 ml 250 ML IVPB SCH ×2 (14:53)
[2021-07-13 14:57] LABS: Calcium 8.2 mg/dL (8.6-10.3); EGFR African American 134.3 (>60); Potassium 3.7 mmol/L (3.5-5.0)
[2021-07-13] MEDS: Insulin GLARGINE 100 un/ml 10 ml VIAL SUBCUT SCH (22:37)
[2021-07-13] MEDS: HYDROcodone/ACETAMIN 5/325 mg TAB PO PRN (22:39)
[2021-07-14] MEDS: Vancomycin 1,250 MG in NS 0.9% 250 ml 250 ML IVPB SCH ×2 (03:09→15:58)
[2021-07-14 05:59] LABS: ABS Basophils 0.1 10^3/ul (0-0.2); ABS Eosinophils 0.2 10^3/ul (0-0.6); ABS Lymphocytes 1.5 10^3/ul (1.0-4.8); ABS Monocytes 0.5 10^3/ul (0-0.8); ABS Neutrophils 3.8 10^3/ul (1.5-7.7); Eosinophil % 3.4 %; Hematocrit 36 % (42-52); Hemoglobin 12.2 g/dL (14.0-18.0); Lymphocyte % 24.9 %; Mean Corpuscular HGB Conc 34 g/dL (31-36); Mean Corpuscular Hemoglobin 28 pg (27-31); Mean Corpuscular Volume 83 fL (80-94); Mean Platelet Volume 7.2 fL (7.4-10.4); Nucleated Red Blood Cells % 0.1; Platelet Count 369 10^3/uL (150-450); Red Cell Distribution Width 15 % (10-15); White Blood Count 6.1 10^3/uL (3.5-10.8)
[2021-07-14] MEDS: HYDROcodone/ACETAMIN 5/325 mg TAB PO PRN ×3 (06:12→19:48)
[2021-07-14 06:15] LABS: Calcium 8.3 mg/dL (8.6-10.3); EGFR African American 134.3 (>60); Potassium 3.7 mmol/L (3.5-5.0)
[2021-07-14] MEDS: Enoxaparin 40 MG/0.4 ML SYR SUBCUT SCH (07:58)
[2021-07-14] MEDS ORDERED: Morphine 2 MG/ML SYRINGE IV PRN (09:30)
[2021-07-14] MEDS: metroNIDAZOLE IV 500 MG/100ML 500 MG/100 ML BAG IVPB SCH ×2 (11:08→18:41)
[2021-07-14 11:23] LABS: C Reactive Protein 66.95 mg/L (<8.01)
[2021-07-14] MEDS ORDERED: Vancomycin Trough Check NOTE FOLLOW UP ONE (14:30)
[2021-07-14] MEDS: Insulin GLARGINE 100 un/ml 10 ml VIAL SUBCUT SCH (21:47)
[2021-07-14] MEDS: Vancomycin 1,500 MG in NS 0.9% 250 ml 250 ML IVPB SCH (23:49)
[2021-07-15] MEDS: metroNIDAZOLE IV 500 MG/100ML 500 MG/100 ML BAG IVPB SCH ×3 (02:30→17:35)
[2021-07-15] MEDS: HYDROcodone/ACETAMIN 5/325 mg TAB PO PRN ×2 (02:30→21:37)
[2021-07-15 08:05] LABS: EGFR African American 118.9 (>60); EGFR Non-African American 98.3 (>60); Potassium 3.8 mmol/L (3.5-5.0)
[2021-07-15] MEDS: Morphine 2 MG/ML SYRINGE IV PRN ×2 (08:06→16:28)
[2021-07-15] MEDS: Enoxaparin 40 MG/0.4 ML SYR SUBCUT SCH ×2 (08:28→09:43)
[2021-07-15] MEDS: Vancomycin 1,500 MG in NS 0.9% 250 ml 250 ML IVPB SCH (12:10)
[2021-07-15] MEDS ORDERED: Insulin GLARGINE 100 un/ml 10 ml VIAL SUBCUT SCH (21:00)
[2021-07-16] MEDS: Vancomycin 1,500 MG in NS 0.9% 250 ml 250 ML IVPB SCH ×3 (00:12→13:45)
[2021-07-16] MEDS: metroNIDAZOLE IV 500 MG/100ML 500 MG/100 ML BAG IVPB SCH ×2 (03:57→09:21)
[2021-07-16 08:21] LABS: ABS Basophils 0.1 10^3/ul (0-0.2); ABS Eosinophils 0.2 10^3/ul (0-0.6); ABS Lymphocytes 1.6 10^3/ul (1.0-4.8); ABS Monocytes 0.6 10^3/ul (0-0.8); ABS Neutrophils 4.3 10^3/ul (1.5-7.7); Eosinophil % 3.3 %; Hematocrit 39 % (42-52); Hemoglobin 12.6 g/dL (14.0-18.0); Lymphocyte % 23.3 %; Mean Corpuscular HGB Conc 33 g/dL (31-36); Mean Corpuscular Hemoglobin 28 pg (27-31); Mean Corpuscular Volume 85 fL (80-94); Mean Platelet Volume 7.3 fL (7.4-10.4); Nucleated Red Blood Cells % 0.1; Platelet Count 397 10^3/uL (150-450); Red Blood Count 4.55 10^6 /uL (4.18-5.48); Red Cell Distribution Width 15 % (10-15); White Blood Count 6.7 10^3/uL (3.5-10.8)
[2021-07-16 08:49] LABS: Calcium 9.2 mg/dL (8.6-10.3); EGFR African American 110.9 (>60); EGFR Non-African American 91.6 (>60); Potassium 4.8 mmol/L (3.5-5.0)
[2021-07-16] MEDS: Enoxaparin 40 MG/0.4 ML SYR SUBCUT SCH (09:21)
[2021-07-16] MEDS ORDERED: Vancomycin Trough Check NOTE FOLLOW UP ONE (11:30)
[2021-07-16 12:14] LABS: EGFR African American 109.4 (>60); EGFR Non-African American 90.4 (>60)
[2021-07-16 12:51] VITALS: BP 125/76
[2021-07-16 13:08] LABS: Vancomycin Trough 11.5 mcg/mL
[2021-07-19] MEDS ORDERED: Vancomycin Trough Check NOTE FOLLOW UP ONE (11:30)
== END 2021-07-16 15:45 | disposition home or self-care (01) | DRG 710 ==
LOC: ED 18:13 → MCHPEDS 20:00 → SUATTDRO 07-11 03:28 → EDHOLD 07-11 03:28 → MCHPEDS 07-11 12:03 → SSU 07-13 11:34
PROVIDERS: ADMIT Student in an Organized Health Care Education/Training Program; ATTEND Internal Medicine

== ENCOUNTER 2022-07-10 15:13 | Inpatient (IN) ==
[2022-07-10 15:34] LABS: ABS Basophils 0.1 10^3/ul (0-0.2); ABS Eosinophils 0.2 10^3/ul (0-0.6); ABS Lymphocytes 1.6 10^3/ul (1.0-4.8); ABS Monocytes 0.8 10^3/ul (0-0.8); Eosinophil % 2.1 %; Hematocrit 42 % (42-52); Hemoglobin 14.2 g/dL (14.0-18.0); Lymphocyte % 18.6 %; Mean Corpuscular HGB Conc 34 g/dL (31-36); Mean Corpuscular Hemoglobin 29 pg (27-31); Mean Corpuscular Volume 85 fL (80-94); Mean Platelet Volume 7.8 fL (7.4-10.4); Platelet Count 254 10^3/uL (150-450); Red Blood Count 4.92 10^6 /uL (4.18-5.48); Red Cell Distribution Width 15 % (10-15); White Blood Count 8.6 10^3/uL (3.5-10.8)
[2022-07-10 15:43] LABS: Activated Partial Thrombo Time 28.6 seconds (26.0-38.0); INR 1.08 (0.89-1.11)
[2022-07-10] MEDS ORDERED: Lidocaine PATCH 5% PATCH TRANSDERM ONE (16:00)
[2022-07-10 16:13] LABS: Albumin 3.8 g/dL (3.2-5.2); Albumin/Globulin Ratio 1.3 (1-3); Calcium 9.1 mg/dL (8.6-10.3); Globulin 2.9 g/dL (2-4); HDL Cholesterol 35.6 mg/dL; Potassium 4.2 mmol/L (3.5-5.0); Total Bilirubin 0.6 mg/dL (0.2-1.0); Total Protein 6.7 g/dL (6.4-8.9); eGFR CKD-EPI 72.7 (>60)
[2022-07-10] MEDS ORDERED: TENECTEPLASE 50 MG VIAL KIT 5 MG/ML (reconstituted) IV ONE (16:43)
[2022-07-10] MEDS ORDERED: Dextrose 50% Syringe 50 ml 25 GM/50 ML SYRINGE IV PUSH PRN (18:16)
[2022-07-10 22:15] LABS: Urine Appearance Clear; Urine Bilirubin Negative (Negative); Urine Color Yellow; Urine Glucose 1+ (250mg/dL) (Negative)
[2022-07-10 22:16] LABS: Urine Blood Negative (Negative); Urine Ketones Negative (Negative); Urine Nitrite Negative (Negative); Urine Protein Negative (Negative); Urine Specific Gravity 1.015 (1.005-1.030); Urine Urobilinogen 0.2 (Negative) (Negative); Urine pH 5.5 (5.0-9.0)
[2022-07-10] MEDS ORDERED: Morphine 4 MG/ML VIAL (1 ml) IV ONE (22:32)
[2022-07-11] MEDS ORDERED: Dextran 70/Hypromellose Tears Eye Drops 15 ml BTL (for Artificials Tears) BOTH EYES PRN (01:29)
[2022-07-11] MEDS ORDERED: Acetaminophen IV 1 GM/100ML 1,000 MG/100 ML BAG IV ONE (02:44)
[2022-07-11 06:56] LABS: ABS Basophils 0.1 10^3/ul (0-0.2); ABS Eosinophils 0.2 10^3/ul (0-0.6); ABS Lymphocytes 1.4 10^3/ul (1.0-4.8); ABS Monocytes 0.6 10^3/ul (0-0.8); Eosinophil % 3.2 %; Hematocrit 40 % (42-52); Hemoglobin 13.7 g/dL (14.0-18.0); Lymphocyte % 26.7 %; Mean Corpuscular HGB Conc 34 g/dL (31-36); Mean Corpuscular Hemoglobin 29 pg (27-31); Mean Corpuscular Volume 84 fL (80-94); Mean Platelet Volume 7.6 fL (7.4-10.4); Nucleated Red Blood Cells % 0.1; Platelet Count 220 10^3/uL (150-450); Red Blood Count 4.76 10^6 /uL (4.18-5.48); Red Cell Distribution Width 15 % (10-15); White Blood Count 5.2 10^3/uL (3.5-10.8)
[2022-07-11 07:32] LABS: Calcium 8.2 mg/dL (8.6-10.3); Magnesium 1.9 mg/dL (1.9-2.7); Phosphorus 2.2 mg/dL (2.5-5.0); Potassium 3.6 mmol/L (3.5-5.0); eGFR CKD-EPI 98.2 (>60)
[2022-07-11] MEDS ORDERED: Potassium Chlor 20 meq TAB.ER PO ONE (07:50)
[2022-07-11] MEDS ORDERED: Perflutren Lipid Microsphere 3 ML VIAL ONE (12:51)
[2022-07-11] MEDS ORDERED: Lidocaine PATCH 5% PATCH TRANSDERM PRN (13:08)
[2022-07-12] MEDS: Morphine 2 MG/ML SYRINGE IV PRN ×2 (01:56→08:59)
[2022-07-12 05:11] LABS: ABS Basophils 0.1 10^3/ul (0-0.2); ABS Eosinophils 0.2 10^3/ul (0-0.6); ABS Lymphocytes 1.4 10^3/ul (1.0-4.8); ABS Monocytes 0.5 10^3/ul (0-0.8); ABS Neutrophils 4.2 10^3/ul (1.5-7.7); Eosinophil % 3.2 %; Hematocrit 42 % (42-52); Hemoglobin 14.3 g/dL (14.0-18.0); Lymphocyte % 21.2 %; Mean Corpuscular HGB Conc 34 g/dL (31-36); Mean Corpuscular Hemoglobin 29 pg (27-31); Mean Corpuscular Volume 85 fL (80-94); Mean Platelet Volume 7.6 fL (7.4-10.4); Platelet Count 220 10^3/uL (150-450); Red Blood Count 4.97 10^6 /uL (4.18-5.48); Red Cell Distribution Width 15 % (10-15); White Blood Count 6.4 10^3/uL (3.5-10.8)
[2022-07-12 05:52] LABS: Magnesium 1.9 mg/dL (1.9-2.7); eGFR CKD-EPI 98.2 (>60)
[2022-07-12] MEDS ORDERED: Aspirin EC 81 mg TAB.EC (enteric coated) PO SCH (11:00)
[2022-07-12 12:38] VITALS: BP 179/164
== END 2022-07-12 12:30 | disposition home or self-care (01) | DRG 45 ==
LOC: ED 15:13 → EDHOLD 17:00 → ICU 22:27
PROVIDERS: ADMIT Internal Medicine; ATTEND Internal Medicine

== ENCOUNTER 2022-12-11 17:00 | Observation (INO) ==
[2022-12-11 18:30] LABS: ABS Basophils 0.1 10^3/ul (0-0.2); ABS Eosinophils 0.3 10^3/ul (0-0.6); ABS Lymphocytes 1.1 10^3/ul (1.0-4.8); ABS Monocytes 0.6 10^3/ul (0-0.8); ABS Neutrophils 5.6 10^3/ul (1.5-7.7); Eosinophil % 4.4 %; Hematocrit 37 % (42-52); Hemoglobin 11.6 g/dL (14.0-18.0); Lymphocyte % 14.1 %; Mean Corpuscular HGB Conc 32 g/dL (31-36); Mean Corpuscular Hemoglobin 26 pg (27-31); Mean Corpuscular Volume 80 fL (80-94); Mean Platelet Volume 7.1 fL (7.4-10.4); Platelet Count 498 10^3/uL (150-450); Red Blood Count 4.55 10^6 /uL (4.18-5.48); Red Cell Distribution Width 15 % (10-15); White Blood Count 7.7 10^3/uL (3.5-10.8)
[2022-12-11 19:05] LABS: Albumin 3.3 g/dL (3.2-5.2); Albumin/Globulin Ratio 0.8 (1-3); C Reactive Protein 124.73 mg/L (<8.01); Globulin 4.1 g/dL (2-4); Magnesium 1.9 mg/dL (1.9-2.7); Potassium 4.1 mmol/L (3.5-5.0); Total Bilirubin 0.4 mg/dL (0.2-1.0); Total Protein 7.4 g/dL (6.4-8.9); eGFR CKD-EPI 96.6 (>60)
[2022-12-11] MEDS ORDERED: Vancomycin 1,500 MG in NS 0.9% 250 ml 250 ML IVPB ONE (21:55)
[2022-12-11] MEDS ORDERED: Vancomycin per Pharmacy 1 EA NOTE FOLLOW UP PRN (22:01)
[2022-12-11] MEDS: Cefepime 2 GM in Dextrose 2 GM/50 ML BAG IV SCH (23:05)
[2022-12-12] MEDS: Cefepime 2 GM in Dextrose 2 GM/50 ML BAG IV SCH ×2 (06:10→15:02)
[2022-12-12 06:14] LABS: ABS Eosinophils 0.3 10^3/ul (0-0.6); ABS Monocytes 0.7 10^3/ul (0-0.8); ABS Neutrophils 3.4 10^3/ul (1.5-7.7); Eosinophil % 5.2 %; Hematocrit 33 % (42-52); Hemoglobin 10.6 g/dL (14.0-18.0); Mean Corpuscular HGB Conc 32 g/dL (31-36); Mean Corpuscular Hemoglobin 26 pg (27-31); Mean Corpuscular Volume 80 fL (80-94); Mean Platelet Volume 7.2 fL (7.4-10.4); Platelet Count 404 10^3/uL (150-450); Red Blood Count 4.13 10^6 /uL (4.18-5.48); Red Cell Distribution Width 15 % (10-15); White Blood Count 5.5 10^3/uL (3.5-10.8)
[2022-12-12 06:30] LABS: eGFR CKD-EPI 96.6 (>60)
[2022-12-12] MEDS ORDERED: Vancomycin 1,500 MG in NS 0.9% 250 ml 250 ML IVPB SCH (09:00)
[2022-12-12] MEDS ORDERED: Dextrose 50% Syringe 50 ml 25 GM/50 ML SYRINGE IV PUSH PRN (09:38)
[2022-12-12 15:53] VITALS: BP 144/85
[2022-12-13] MEDS ORDERED: Vancomycin Trough Check NOTE FOLLOW UP ONE (08:30)
== END 2022-12-12 17:10 | disposition home or self-care (01) ==
LOC: ED 17:00 → EDHOLD 17:00 → SUATTDRO 20:25 → EDHOLD 23:10 → SSU 12-12 00:04
PROVIDERS: ADMIT Internal Medicine; ATTEND Internal Medicine

== ENCOUNTER 2024-12-21 11:25 | Inpatient (IN) ==
[2024-12-21] MEDS: Ondansetron 4 mg VIAL 2 MG/ML 2 ml VIAL IV ONE (12:56)
[2024-12-21] MEDS: Morphine 2 MG/ML SYRINGE IV ONE (12:56)
[2024-12-21] MEDS: Vancomycin 1,500 MG in NS 0.9% 250 ml 250 ML IVPB ONE (13:02)
[2024-12-21 13:06] LABS: ABS Basophils 0.1 10^3/uL (0.0-0.1); ABS Eosinophils 0.1 10^3/uL (0.0-0.5); ABS Lymphocytes 1.5 10^3/uL (1.0-4.8); ABS Monocytes 0.8 10^3/uL (0.0-1.1); ABS Neutrophils 7.9 10^3/uL (1.5-7.6); ABS Nucleated RBC 0.02 10^3/ul; Eosinophil % 1.4 %; Hematocrit 43.3 % (38-53); Hemoglobin 15.1 g/dL (13.2-16.3); Lymphocyte % 14.3 %; Mean Corpuscular Hemoglobin 29.9 pg (27-33); Mean Corpuscular Hgb Conc 34.9 g/dL (31-36); Mean Corpuscular Volume 85.8 fL (80-97); Mean Platelet Volume 7.7 fL (7.5-11.2); Nucleated Red Blood Cells % 0.2 %/100WBC (0.0-0.8); Platelet Count 229 10^3/uL (150-450); Red Blood Count 5.05 10^6/uL (4.06-5.63); Red Cell Distribution Width 14.1 % (12-17); White Blood Count 10.4 10^3/uL (3.6-10.2)
[2024-12-21] MEDS: Lactated Ringers 1000 ml BAG 1,000 ML IV ONE (13:49)
[2024-12-21 14:04] LABS: Albumin 3.9 g/dL (3.5-5.7); Albumin/Globulin Ratio 1.1 (1-3); C Reactive Protein 209.03 mg/L (<8.01); Calcium 9.5 mg/dL (8.6-10.3); Creatinine, Serum 1.03 mg/dL (0.67-1.17); Globulin 3.4 g/dL (2-4); Potassium 3.4 mmol/L (3.5-5.0); Total Bilirubin 0.7 mg/dL (0.2-1.0); Total Protein 7.3 g/dL (6.4-8.9); eGFR CKD-EPI 80.6 (>60)
[2024-12-21 14:16] LABS: Erythrocyte Sed Rate 41 mm/Hr (0-19)
[2024-12-21] MEDS ORDERED: Vancomycin per Pharmacy 1 EA NOTE FOLLOW UP SCH (16:00)
[2024-12-21] MEDS ORDERED: Dextrose 50% Syringe 50 ml 25 GM/50 ML SYRINGE IV PUSH PRN (16:11)
[2024-12-21] MEDS: Potassium Chlor 20 meq TAB.ER PO ONE (16:59)
[2024-12-21] MEDS: Insulin GLARGINE 100 un/ml 10 ml VIAL SUBCUT SCH (20:55)
[2024-12-21] MEDS: Vancomycin 1,250 MG in NS 0.9% 250 ml 250 ML IVPB SCH (23:51)
[2024-12-22] MEDS: Morphine 2 MG/ML SYRINGE IV ONE (02:38)
[2024-12-22] MEDS ORDERED: Morphine 2 MG/ML SYRINGE IV PRN (06:04)
[2024-12-22] MEDS: Acetaminophen IV 1 GM/100ML 1,000 MG/100 ML BAG IV ONE (06:35)
[2024-12-22 06:49] LABS: ABS Basophils 0.1 10^3/uL (0.0-0.1); ABS Eosinophils 0.1 10^3/uL (0.0-0.5); ABS Lymphocytes 1.1 10^3/uL (1.0-4.8); ABS Monocytes 0.7 10^3/uL (0.0-1.1); ABS Neutrophils 6.4 10^3/uL (1.5-7.6); ABS Nucleated RBC 0.01 10^3/ul; Eosinophil % 1.8 %; Hematocrit 39.3 % (38-53); Hemoglobin 13.8 g/dL (13.2-16.3); Lymphocyte % 13.5 %; Mean Corpuscular Hemoglobin 30.2 pg (27-33); Mean Corpuscular Hgb Conc 35.3 g/dL (31-36); Mean Corpuscular Volume 85.7 fL (80-97); Mean Platelet Volume 7.8 fL (7.5-11.2); Nucleated Red Blood Cells % 0.1 %/100WBC (0.0-0.8); Platelet Count 204 10^3/uL (150-450); Red Blood Count 4.58 10^6/uL (4.06-5.63); Red Cell Distribution Width 14.4 % (12-17); White Blood Count 8.4 10^3/uL (3.6-10.2)
[2024-12-22 07:42] LABS: Calcium 9.1 mg/dL (8.6-10.3); Creatinine, Serum 0.99 mg/dL (0.67-1.17); Potassium 4.1 mmol/L (3.5-5.0); eGFR CKD-EPI 84.5 (>60)
[2024-12-22] MEDS: Aspirin EC 81 mg TAB.EC (enteric coated) PO SCH (08:08)
[2024-12-22 08:17] LABS: C Reactive Protein 185.09 mg/L (<8.01)
[2024-12-22 09:06] LABS: Erythrocyte Sed Rate 51 mm/Hr (0-19)
[2024-12-22] MEDS: Acetaminophen IV 1 GM/100ML 1,000 MG/100 ML BAG IV SCH (11:05)
[2024-12-22] MEDS: Morphine 2 MG/ML SYRINGE IV PRN (15:33)
[2024-12-22] MEDS: Enoxaparin 40 MG/0.4 ML SYR SUBCUT SCH (21:40)
[2024-12-22] MEDS: Insulin GLARGINE 100 un/ml 10 ml VIAL SUBCUT SCH (21:40)
[2024-12-23 06:32] LABS: Mean Corpuscular Hemoglobin 30.2 pg (27-33); Mean Corpuscular Hgb Conc 34.9 g/dL (31-36); Mean Corpuscular Volume 86.4 fL (80-97); Platelet Count 215 10^3/uL (150-450); Red Blood Count 4.63 10^6/uL (4.06-5.63); Red Cell Distribution Width 14.2 % (12-17)
[2024-12-23 06:50] LABS: Creatinine, Serum 0.87 mg/dL (0.67-1.17); Magnesium 1.9 mg/dL (1.9-2.7); Potassium 3.9 mmol/L (3.5-5.0); eGFR CKD-EPI 95.8 (>60)
[2024-12-23 08:26] LABS: C Reactive Protein 175.71 mg/L (<8.01)
[2024-12-23 10:10] LABS: Erythrocyte Sed Rate 55 mm/Hr (0-19)
[2024-12-23] MEDS: Empagliflozin 25 MG TAB PO SCH (11:47)
[2024-12-23] MEDS: Vancomycin Trough Check NOTE FOLLOW UP ONE (12:10)
[2024-12-23] MEDS: Morphine 2 MG/ML SYRINGE IV PRN (18:58)
[2024-12-23] MEDS: Insulin GLARGINE 100 un/ml 10 ml VIAL SUBCUT SCH (21:10)
[2024-12-23] MEDS: Vancomycin 1,500 MG in NS 0.9% 250 ml 250 ML IVPB SCH (23:42)
[2024-12-24 06:01] LABS: ABS Basophils 0.1 10^3/uL (0.0-0.1); ABS Eosinophils 0.2 10^3/uL (0.0-0.5); ABS Lymphocytes 1.7 10^3/uL (1.0-4.8); ABS Monocytes 0.4 10^3/uL (0.0-1.1); ABS Neutrophils 2.4 10^3/uL (1.5-7.6); ABS Nucleated RBC 0.01 10^3/ul; Eosinophil % 4.7 %; Hematocrit 39.9 % (38-53); Hemoglobin 13.8 g/dL (13.2-16.3); Lymphocyte % 35.2 %; Mean Corpuscular Hgb Conc 34.6 g/dL (31-36); Mean Corpuscular Volume 86.7 fL (80-97); Mean Platelet Volume 7.6 fL (7.5-11.2); Nucleated Red Blood Cells % 0.3 %/100WBC (0.0-0.8); Platelet Count 255 10^3/uL (150-450); Red Cell Distribution Width 14.1 % (12-17); White Blood Count 4.7 10^3/uL (3.6-10.2)
[2024-12-24 06:12] LABS: Calcium 9.2 mg/dL (8.6-10.3); Creatinine, Serum 0.74 mg/dL (0.67-1.17); Potassium 4.4 mmol/L (3.5-5.0); eGFR CKD-EPI 100.6 (>60)
[2024-12-24] MEDS: Insulin GLARGINE 100 un/ml 10 ml VIAL SUBCUT SCH (20:57)
[2024-12-25 06:20] LABS: ABS Basophils 0.1 10^3/uL (0.0-0.1); ABS Eosinophils 0.2 10^3/uL (0.0-0.5); ABS Lymphocytes 1.4 10^3/uL (1.0-4.8); ABS Monocytes 0.5 10^3/uL (0.0-1.1); ABS Neutrophils 2.8 10^3/uL (1.5-7.6); ABS Nucleated RBC 0.01 10^3/ul; Eosinophil % 3.5 %; Hemoglobin 13.4 g/dL (13.2-16.3); Lymphocyte % 27.7 %; Mean Corpuscular Hemoglobin 29.3 pg (27-33); Mean Corpuscular Hgb Conc 34.3 g/dL (31-36); Mean Corpuscular Volume 85.3 fL (80-97); Mean Platelet Volume 7.6 fL (7.5-11.2); Nucleated Red Blood Cells % 0.2 %/100WBC (0.0-0.8); Platelet Count 282 10^3/uL (150-450); Red Blood Count 4.57 10^6/uL (4.06-5.63); Red Cell Distribution Width 14.3 % (12-17); White Blood Count 4.9 10^3/uL (3.6-10.2)
[2024-12-25 06:43] LABS: Calcium 8.5 mg/dL (8.6-10.3); Creatinine, Serum 0.75 mg/dL (0.67-1.17); Potassium 4.1 mmol/L (3.5-5.0); eGFR CKD-EPI 100.1 (>60)
[2024-12-25 09:43] VITALS: BP 134/74
[2024-12-25] MEDS ORDERED: Lorazepam PYXIS KEY PRN (11:45)
[2024-12-25] MEDS ORDERED: LORazepam 2 mg VIAL 1 ml IV PUSH PRN ×2 (11:45→11:49)
[2024-12-25 11:49] LABS: Creatinine, Serum 0.94 mg/dL (0.67-1.17); Vancomycin Trough 11.4 mcg/mL
[2024-12-25] MEDS: Vancomycin Trough Check NOTE FOLLOW UP ONE (12:22)
[2024-12-29] MEDS ORDERED: Vancomycin Trough Check NOTE FOLLOW UP ONE (11:00)
== END 2024-12-25 14:50 | disposition home or self-care (01) | DRG 155 ==
LOC: EDHOLD 11:25 → ED 11:25 → MED 15:37
PROVIDERS: ADMIT Hospitalist; ATTEND Hospitalist